=== PATIENT | male | born 1960 | race Caucasian/White ===

== ENCOUNTER 2018-04-24 14:49 | Inpatient (IN) | payer MEDICARE, OTHER ==
[~2018-04-24] VITALS: Ht 170.2 cm; Wt 90.7 kg
[~2018-04-24 14:49] MED LIST: ACET160O49 PO; APIX5TAB PO; ASPI-630 PO; ATOR40TA59 PO; BACL10TA PO; CARV6.252 PO; CITA20TA9 PO; GABA-587 PO; LOSA50TA7 PO; MAGN400T3 PO; QUET25TA5 PO; SPIR25TA PO; TRAM50TA PO
[2018-04-24 15:47] LABS: BASO # 0.1 x10^3/uL (0.0-0.2); BASO % 0 % (0-3); EOS # 0.2 x10^3/uL (0.0-0.7); EOS % 2 % (0-3); HEMATOCRIT 49.6 % (39.0-53.0); HEMOGLOBIN 16.8 g/dL (13.0-17.5); LYMPH # 1.2 x10^3/uL (1.0-4.8); LYMPH % 9 % (24-48); MEAN CORPUSCULAR HEMOGLOBIN 31 pg (25-35); MEAN CORPUSCULAR HGB CONC 34 g/dL (31-37); MEAN CORPUSCULAR VOLUME 91 fL (79-100); MONO # 0.7 x10^3/uL (0.0-1.1); MONO % 6 % (0-9); NEUT # 10.6 x10^3uL (1.8-7.7); NEUT % 83 % (31-73); PLATELET COUNT 240 x10^3/uL (140-400); RED BLOOD COUNT 5.47 x10^6/uL (4.30-5.70); RED CELL DISTRIBUTION WIDTH 14.1 % (11.5-14.5); WHITE BLOOD COUNT 12.7 x10^3/uL (4.0-11.0)
--- NOTE | 2018-04-24 15:48 | EKG ---
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
[2018-04-24 16:01] LABS: CALCIUM 9.9 mg/dL (8.5-10.1); CREATININE 0.8 mg/dL (0.7-1.3); GFR 99.3; POTASSIUM 4.1 mmol/L (3.5-5.1)
[2018-04-24 16:06] LABS: ALBUMIN 3.5 g/dL (3.4-5.0); ALBUMIN/GLOBULIN RATIO 0.8 (1.0-1.7); TOTAL BILIRUBIN 1.2 mg/dL (0.2-1.0); TOTAL PROTEIN 7.7 g/dL (6.4-8.2)
--- NOTE | 2018-04-24 16:43 | RAD ---
CT of the head without contrast, 04/24/2018: HISTORY: Fatigue, weakness, unable to use right arm Noncontrast scans were obtained and compared to a study from 01/12/2018. A large area of encephalomalacia in the left middle cerebral artery distribution is unchanged. There is compensatory enlargement of the left lateral ventricle. There is no evidence of acute intracranial hemorrhage or mass effect. There is calcific plaquing of the distal internal carotid and vertebral arteries. There is moderate ongoing mucosal thickening in the ethmoid and frontal sinuses. IMPRESSION: 1. 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 2. No acute intracranial abnormality is detected. PQRS Compliance Statement: One or more of the following individualized dose reduction techniques were utilized for this examination: 1. Automated exposure control 2. Adjustment of the mA and/or kV according to patient size 3. Use of iterative reconstruction technique Electronically signed by: Zak Ruiz MD (04/24/2018 4:39 PM) [facility]
--- NOTE | 2018-04-24 16:50 | RAD ---
Portable chest, 04/24/2018: HISTORY: Weakness Comparison is made to a study from 02/11/2018. The heart is mildly enlarged. There is calcific plaquing the aorta. The pulmonary vascularity is normal. No pulmonary infiltrate is seen. There is no evidence of pleural fluid. IMPRESSION: 1. Mild cardiomegaly and aortic atherosclerosis. 2. No acute abnormality is detected. Electronically signed by: Zak Ruiz MD (04/24/2018 4:46 PM) [facility]
--- NOTE | 2018-04-24 17:10 | PHYS DOC ---
Past Medical History Past Medical History: A-Fib, CVA, Depression, Diabetes-Type II, Heart Disease, Other Additional Past Medical Histor: hemiplegia;apraxia;aphasia;resp. failure;SI with attempt;MRSA Past Surgical History: Other Additional Past Surgical Histo: unknown Alcohol Use: None Drug Use: None Adult General Chief Complaint Chief Complaint: FATIGUE HPI HPI Patient is a 57 year old male who presents to the emergency Department today via EMS with fci reports of lethargy, weakness, and not wanting to get up for several days. Today after the patient had been taken outside to smoke patient he became very diaphoretic and pale. Patient denies any complaints of chest pain, shortness of breath, nausea, vomiting, diarrhea, or headache. Patient had a previous stroke and has limited speech due to aphasia as a result of stroke. Patient also has right-sided deficits from the stroke. Review of Systems Review of Systems Constitutional: Denies fever or chills [] Eyes: Denies change in visual acuity, redness, or eye pain [] HENT: Denies nasal congestion or sore throat [] Respiratory: Denies cough or shortness of breath [] Cardiovascular: Denies chest pain GI: Denies abdominal pain, nausea, vomiting, or diarrhea [] Musculoskeletal: Denies back pain or joint pain [] Neurologic: Denies headache Psychiatric: Denies any suicidal ideations or thoughts of hurting himself All other systems were reviewed and found to be within normal limits, except as documented in this note. Allergies Allergies Allergies Coded Allergies Type Severity Reaction Last Updated Verified Influenza Virus Vaccines Allergy Intermediate 02/12/18 Yes Penicillins Allergy Intermediate 02/12/18 Yes hydrocodone Allergy Intermediate 02/12/18 Yes Physical Exam Physical Exam Constitutional: Well developed, well nourished, no acute distress, non-toxic appearance. [] HENT: Normocephalic, atraumatic, bilateral external ears normal, oropharynx moist, no oral exudates, nose normal. [] Eyes: PERRLA, conjunctiva normal, no discharge. [] Cardiovascular:Heart rate regular rhythm, no murmur [] Lungs & Thorax: Bilateral breath sounds clear to auscultation [] Skin: Warm, dry, no erythema, no rash. [] Extremities: No tenderness, no cyanosis, no edema. [] Neurologic: Alert and oriented X 3, R sided weakness due to previous CVA, aphasia noted Psychologic: Affect normal, judgement normal, mood normal, denies suicidal ideations. [] Current Patient Data Lab Values Laboratory Tests Test 04/24/18 15:40 04/24/18 17:10 White Blood Count 12.7 x10^3/uL (4.0-11.0) H Red Blood Count 5.47 x10^6/uL (4.30-5.70) Hemoglobin 16.8 g/dL (13.0-17.5) Hematocrit 49.6 % (39.0-53.0) Mean Corpuscular Volume 91 fL (79-100) Mean Corpuscular Hemoglobin 31 pg (25-35) Mean Corpuscular Hemoglobin Concent 34 g/dL (31-37) Red Cell Distribution Width 14.1 % (11.5-14.5) Platelet Count 240 x10^3/uL (140-400) Neutrophils (%) (Auto) 83 % (31-73) H Lymphocytes (%) (Auto) 9 % (24-48) L Monocytes (%) (Auto) 6 % (0-9) Eosinophils (%) (Auto) 2 % (0-3) Basophils (%) (Auto) 0 % (0-3) Neutrophils # (Auto) 10.6 x10^3uL (1.8-7.7) H Lymphocytes # (Auto) 1.2 x10^3/uL (1.0-4.8) Monocytes # (Auto) 0.7 x10^3/uL (0.0-1.1) Eosinophils # (Auto) 0.2 x10^3/uL (0.0-0.7) Basophils # (Auto) 0.1 x10^3/uL (0.0-0.2) Sodium Level 138 mmol/L (136-145) Potassium Level 4.1 mmol/L (3.5-5.1) Chloride Level 102 mmol/L (98-107) Carbon Dioxide Level 25 mmol/L (21-32) Anion Gap 11 (6-14) Blood Urea Nitrogen 14 mg/dL (8-26) Creatinine 0.8 mg/dL (0.7-1.3) Estimated GFR (Cockcroft-Gault) 99.3 BUN/Creatinine Ratio 18 (6-20) Glucose Level 147 mg/dL (70-99) H Calcium Level 9.9 mg/dL (8.5-10.1) Total Bilirubin 1.2 mg/dL (0.2-1.0) H Aspartate Amino Transferase (AST) 21 U/L (15-37) Alanine Aminotransferase (ALT) 37 U/L (16-63) Alkaline Phosphatase 88 U/L (46-116) Troponin I Quantitative < 0.017 ng/mL (0.000-0.055) Total Protein 7.7 g/dL (6.4-8.2) Albumin 3.5 g/dL (3.4-5.0) Albumin/Globulin Ratio 0.8 (1.0-1.7) L Lactic Acid Level 1.5 mmol/L (0.4-2.0) Laboratory Tests 04/24/18 15:40 Laboratory Tests 04/24/18 15:40 EKG EKG [] Radiology/Procedures Radiology/Procedures PROCEDURE: CT HEAD WO CONTRAST CT of the head without contrast, 04/24/2018: HISTORY: Fatigue, weakness, unable to use right arm Noncontrast scans were obtained and compared to a study from 01/12/2018. A large area of encephalomalacia in the left middle cerebral artery distribution is unchanged. There is compensatory enlargement of the left lateral ventricle. There is no evidence of acute intracranial hemorrhage or mass effect. There is calcific plaquing of the distal internal carotid and vertebral arteries. There is moderate ongoing mucosal thickening in the ethmoid and frontal sinuses. IMPRESSION: 1. 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 2. No acute intracranial abnormality is detected. PQRS Compliance Statement: One or more of the following individualized dose reduction techniques were utilized for this examination: 1. Automated exposure control 2. Adjustment of the mA and/or kV according to patient size 3. Use of iterative reconstruction technique[] PROCEDURE: PORTABLE CHEST 1V Portable chest, 04/24/2018: HISTORY: Weakness Comparison is made to a study from 02/11/2018. The heart is mildly enlarged. There is calcific plaquing the aorta. The pulmonary vascularity is normal. No pulmonary infiltrate is seen. There is no evidence of pleural fluid. IMPRESSION: 1. Mild cardiomegaly and aortic atherosclerosis. 2. No acute abnormality is detected. Course & Med Decision Making Course & Med Decision Making Pertinent Labs and Imaging studies reviewed. (See chart for details) Dx: weakness CT head negative for acute findings. CXR no acute findings. WBC elevated 12.4, lactic acid WNL Spoke with Dr. Amaya advised urine still pending, he will admit this patient for further evaluation of weakness. Dragon Disclaimer Dragon Disclaimer This electronic medical record was generated, in whole or in part, using a voice recognition dictation system. Departure Departure Impression: Primary Impression: Weakness Disposition: ADMITTED INPATIENT Admitting Physician: Teresa Amaya Condition: STABLE Referrals: MICHEL DOMINGUEZ (PCP) EMMY EVANGELISTA [employer]ARING [employer] MECHANIC Apr 24, 2018 17:10
--- NOTE | 2018-04-24 22:11 | PDOC1 ---
History and Physical Date of Admission Date of Admission DATE: 04/24/18 TIME: 22:04 Source Source: Chart review, Patient History of Present Illness History of Present Illness Mr. Collins, is a 57 year old male admit from his care home reports of lethargy, weakness. He was outside and was pale and sweaty, he had gone to smoke He has been dispondent since he had made a new lady friend at [facility], and she was discharged home, and he cannot leave. His 2 daughters are in the ER with him, he voices frustration repeatedly, and they are worried he may try to harm himself, although he denies, he just wants to go home and is mad about it. Today after been taken outside to smoke patient he became very diaphoretic and pale. No chest pain, shortness of breath, nausea, vomiting, diarrhea, or headache. P in rehab for marked right sided weakness from CVA, with aphasia Past Medical History Cardiovascular: AFIB, CAD, CHF, HTN CENTRAL NERVOUS SYSTEM: CVA Psych: Depression Infectious disease: Other Endocrine: Diabetes Past Surgical History Past Surgical History: Other Family History Family History: No Significant Social History Smoke: <1 pack per day ALCOHOL: other Drugs: Other (mult prior , now sober since CVA) Current Problem List Problem List Problems Medical Problems: (1) Weakness Status: Acute Current Medications Current Medications Active Scripts Active Reported Acetaminophen 160 Mg/5 Ml Oral.susp 2.5 Ml PO PRN Q6HRS Tramadol Hcl 50 Mg Tablet 50 Mg PO PRN Q8HRS PRN Seroquel (Quetiapine Fumarate) 25 Mg Tablet 25 Mg PO HS Seroquel (Quetiapine Fumarate) 25 Mg Tablet 12.5 Mg PO BID Magnesium Oxide 400 Mg Tablet 1 Tab PO DAILY Losartan Potassium 50 Mg Tablet 50 Mg PO DAILY Gabapentin 400 Mg Capsule 400 Mg PO QID Eliquis (Apixaban) 5 Mg Tablet 5 Mg PO BID Celexa (Citalopram Hydrobromide) 20 Mg Tablet 30 Mg PO DAILY Carvedilol 6.25 Mg Tablet 1 Tab PO BID Baclofen 10 Mg Tablet 1 Tab PO TID Atorvastatin Calcium 40 Mg Tablet 1 Tab PO QHS Aspirin 81 Mg Tab.chew 1 Tab PO DAILY Aldactone (Spironolactone) 25 Mg Tablet 1 Tab PO DAILY Allergies Allergies: Coded Allergies: Influenza Virus Vaccines (Verified Allergy, Intermediate, 02/12/18) Penicillins (Verified Allergy, Intermediate, 02/12/18) hydrocodone (Verified Allergy, Intermediate, 02/12/18) ROS Review of System unable to complete, he wants to go home, is frustrated, aphasia mostly Physical Exam General: Alert, mild distress, Other (agiatated) HEENT: Atraumatic, PERRLA Lungs: Clear to auscultation Heart: S1S2 Extremities: No cyanosis, No edema Skin: No significant lesion Neuro: Normal tone, Sensation intact, Other (largely aphasic, a few words and a lot of cussing, ) Psych/Mental Status: Mood NL Vitals Vitals Vital Signs Date Time Temp Pulse Resp B/P (MAP) Pulse Ox O2 Delivery O2 Flow Rate FiO2 04/24/18 14:58 98.0 66 18 137/75 (95) 95 Room Air 98.0 Labs Labs Laboratory Tests Test 04/24/18 15:40 04/24/18 17:10 04/24/18 20:04 White Blood Count 12.7 x10^3/uL (4.0-11.0) Red Blood Count 5.47 x10^6/uL (4.30-5.70) Hemoglobin 16.8 g/dL (13.0-17.5) Hematocrit 49.6 % (39.0-53.0) Mean Corpuscular Volume 91 fL (79-100) Mean Corpuscular Hemoglobin 31 pg (25-35) Mean Corpuscular Hemoglobin Concent 34 g/dL (31-37) Red Cell Distribution Width 14.1 % (11.5-14.5) Platelet Count 240 x10^3/uL (140-400) Neutrophils (%) (Auto) 83 % (31-73) Lymphocytes (%) (Auto) 9 % (24-48) Monocytes (%) (Auto) 6 % (0-9) Eosinophils (%) (Auto) 2 % (0-3) Basophils (%) (Auto) 0 % (0-3) Neutrophils # (Auto) 10.6 x10^3uL (1.8-7.7) Lymphocytes # (Auto) 1.2 x10^3/uL (1.0-4.8) Monocytes # (Auto) 0.7 x10^3/uL (0.0-1.1) Eosinophils # (Auto) 0.2 x10^3/uL (0.0-0.7) Basophils # (Auto) 0.1 x10^3/uL (0.0-0.2) Sodium Level 138 mmol/L (136-145) Potassium Level 4.1 mmol/L (3.5-5.1) Chloride Level 102 mmol/L (98-107) Carbon Dioxide Level 25 mmol/L (21-32) Anion Gap 11 (6-14) Blood Urea Nitrogen 14 mg/dL (8-26) Creatinine 0.8 mg/dL (0.7-1.3) Estimated GFR (Cockcroft-Gault) 99.3 BUN/Creatinine Ratio 18 (6-20) Glucose Level 147 mg/dL (70-99) Calcium Level 9.9 mg/dL (8.5-10.1) Total Bilirubin 1.2 mg/dL (0.2-1.0) Aspartate Amino Transf (AST/SGOT) 21 U/L (15-37) Alanine Aminotransferase (ALT/SGPT) 37 U/L (16-63) Alkaline Phosphatase 88 U/L (46-116) Troponin I Quantitative < 0.017 ng/mL (0.000-0.055) Total Protein 7.7 g/dL (6.4-8.2) Albumin 3.5 g/dL (3.4-5.0) Albumin/Globulin Ratio 0.8 (1.0-1.7) Lactic Acid Level 1.5 mmol/L (0.4-2.0) Glucose (Fingerstick) 101 mg/dL (70-99) Laboratory Tests Test 04/24/18 15:40 04/24/18 17:10 04/24/18 20:04 White Blood Count 12.7 x10^3/uL (4.0-11.0) Red Blood Count 5.47 x10^6/uL (4.30-5.70) Hemoglobin 16.8 g/dL (13.0-17.5) Hematocrit 49.6 % (39.0-53.0) Mean Corpuscular Volume 91 fL (79-100) Mean Corpuscular Hemoglobin 31 pg (25-35) Mean Corpuscular Hemoglobin Concent 34 g/dL (31-37) Red Cell Distribution Width 14.1 % (11.5-14.5) Platelet Count 240 x10^3/uL (140-400) Neutrophils (%) (Auto) 83 % (31-73) Lymphocytes (%) (Auto) 9 % (24-48) Monocytes (%) (Auto) 6 % (0-9) Eosinophils (%) (Auto) 2 % (0-3) Basophils (%) (Auto) 0 % (0-3) Neutrophils # (Auto) 10.6 x10^3uL (1.8-7.7) Lymphocytes # (Auto) 1.2 x10^3/uL (1.0-4.8) Monocytes # (Auto) 0.7 x10^3/uL (0.0-1.1) Eosinophils # (Auto) 0.2 x10^3/uL (0.0-0.7) Basophils # (Auto) 0.1 x10^3/uL (0.0-0.2) Sodium Level 138 mmol/L (136-145) Potassium Level 4.1 mmol/L (3.5-5.1) Chloride Level 102 mmol/L (98-107) Carbon Dioxide Level 25 mmol/L (21-32) Anion Gap 11 (6-14) Blood Urea Nitrogen 14 mg/dL (8-26) Creatinine 0.8 mg/dL (0.7-1.3) Estimated GFR (Cockcroft-Gault) 99.3 BUN/Creatinine Ratio 18 (6-20) Glucose Level 147 mg/dL (70-99) Calcium Level 9.9 mg/dL (8.5-10.1) Total Bilirubin 1.2 mg/dL (0.2-1.0) Aspartate Amino Transf (AST/SGOT) 21 U/L (15-37) Alanine Aminotransferase (ALT/SGPT) 37 U/L (16-63) Alkaline Phosphatase 88 U/L (46-116) Troponin I Quantitative < 0.017 ng/mL (0.000-0.055) Total Protein 7.7 g/dL (6.4-8.2) Albumin 3.5 g/dL (3.4-5.0) Albumin/Globulin Ratio 0.8 (1.0-1.7) Lactic Acid Level 1.5 mmol/L (0.4-2.0) Glucose (Fingerstick) 101 mg/dL (70-99) VTE Prophylaxis Ordered VTE Prophylaxis Devices: No VTE Pharmacological Prophylaxi: Yes Assessment/Plan Assessment/Plan presyncope, and diaphoresis recent CVA with marked right hemiplegia aphasia, tobacco use d/o anxiety and prior depression adjustment disorder STEPH LEWIS MD Apr 24, 2018 22:11
[2018-04-24] MEDS ORDERED: ACETAMINOPHEN 160 MG/5 ML ORAL.SUSP. PO SCH (22:15)
[2018-04-24 23:00] VITALS: BP 143/85
[2018-04-25 03:00] VITALS: BP 119/87
[2018-04-25 07:00] VITALS: BP 130/87
[2018-04-25 08:41] LABS: BILIRUBIN,URINE NEGATIVE (NEG); CLARITY,URINE CLEAR; COLOR,URINE YELLOW; NITRITE,URINE POSITIVE (NEG); PROTEIN,URINE NEGATIVE (NEG-TRACE)
[2018-04-25] MEDS: GABAPENTIN 400 MG CAPSULE. PO SCH ×4 (09:00→22:01)
[2018-04-25] MEDS: BACLOFEN 10 MG TABLET. PO SCH ×3 (09:00→22:02)
[2018-04-25 09:23] LABS: BACTERIA,URINE MANY /HPF (0-FEW); WBC,URINE TNTC /HPF (0-4)
[2018-04-25] MEDS: traMADol 50 MG TABLET PO PRN ×2 (10:13→18:09)
[2018-04-25 11:00] VITALS: BP 143/93
--- NOTE | 2018-04-25 11:34 | PDOC ---
PROGRESS NOTES Chief Complaint Chief Complaint presyncope, and diaphoresis recent CVA with marked right hemiplegia aphasia, tobacco use d/o anxiety and prior depression adjustment disorder History of Present Illness History of Present Illness refused to work with PT cont current he is very grumpy should return to [facility], Vitals Vitals Vital Signs Date Time Temp Pulse Resp B/P (MAP) Pulse Ox O2 Delivery O2 Flow Rate FiO2 04/25/18 11:21 90 Room Air 04/25/18 07:00 97.9 75 16 130/87 (101) 97.9 Physical Exam General: Alert, mild distress, Other (agiatated) Heart: Regular rate Lungs: Clear Abdomen: Soft Extremities: No cyanosis, No edema Skin: No significant lesion Labs LABS Laboratory Tests Test 04/24/18 15:40 04/24/18 17:10 04/24/18 20:04 04/25/18 05:00 White Blood Count 12.7 x10^3/uL (4.0-11.0) Red Blood Count 5.47 x10^6/uL (4.30-5.70) Hemoglobin 16.8 g/dL (13.0-17.5) Hematocrit 49.6 % (39.0-53.0) Mean Corpuscular Volume 91 fL (79-100) Mean Corpuscular Hemoglobin 31 pg (25-35) Mean Corpuscular Hemoglobin Concent 34 g/dL (31-37) Red Cell Distribution Width 14.1 % (11.5-14.5) Platelet Count 240 x10^3/uL (140-400) Neutrophils (%) (Auto) 83 % (31-73) Lymphocytes (%) (Auto) 9 % (24-48) Monocytes (%) (Auto) 6 % (0-9) Eosinophils (%) (Auto) 2 % (0-3) Basophils (%) (Auto) 0 % (0-3) Neutrophils # (Auto) 10.6 x10^3uL (1.8-7.7) Lymphocytes # (Auto) 1.2 x10^3/uL (1.0-4.8) Monocytes # (Auto) 0.7 x10^3/uL (0.0-1.1) Eosinophils # (Auto) 0.2 x10^3/uL (0.0-0.7) Basophils # (Auto) 0.1 x10^3/uL (0.0-0.2) Sodium Level 138 mmol/L (136-145) Potassium Level 4.1 mmol/L (3.5-5.1) Chloride Level 102 mmol/L (98-107) Carbon Dioxide Level 25 mmol/L (21-32) Anion Gap 11 (6-14) Blood Urea Nitrogen 14 mg/dL (8-26) Creatinine 0.8 mg/dL (0.7-1.3) Estimated GFR (Cockcroft-Gault) 99.3 BUN/Creatinine Ratio 18 (6-20) Glucose Level 147 mg/dL (70-99) Calcium Level 9.9 mg/dL (8.5-10.1) Total Bilirubin 1.2 mg/dL (0.2-1.0) Aspartate Amino Transf (AST/SGOT) 21 U/L (15-37) Alanine Aminotransferase (ALT/SGPT) 37 U/L (16-63) Alkaline Phosphatase 88 U/L (46-116) Troponin I Quantitative < 0.017 ng/mL (0.000-0.055) Total Protein 7.7 g/dL (6.4-8.2) Albumin 3.5 g/dL (3.4-5.0) Albumin/Globulin Ratio 0.8 (1.0-1.7) Lactic Acid Level 1.5 mmol/L (0.4-2.0) Glucose (Fingerstick) 101 mg/dL (70-99) Urine Collection Type Unknown Urine Color Yellow Urine Clarity Clear Urine pH 6.0 Urine Specific [place] 1.025 Urine Protein Negative mg/dL (NEG-TRACE) Urine Glucose (UA) Negative mg/dL (NEG) Urine Ketones (Stick) Trace mg/dL (NEG) Urine Blood Trace (NEG) Urine Nitrite Positive (NEG) Urine Bilirubin Negative (NEG) Urine Urobilinogen Dipstick 1.0 mg/dL (0.2 mg/dL) Urine Leukocyte Esterase Large (NEG) Urine RBC 1-2 /HPF (0-2) Urine WBC Tntc /HPF (0-4) Urine Bacteria Many /HPF (0-FEW) Assessment and Plan Assessmemt and Plan Problems Medical Problems: (1) Weakness Status: Acute Comment Review of Relevant I have reviewed the following items dg (where applicable) has been applied. Labs Laboratory Tests Test 04/24/18 15:40 04/24/18 17:10 04/24/18 20:04 04/25/18 05:00 White Blood Count 12.7 x10^3/uL (4.0-11.0) Red Blood Count 5.47 x10^6/uL (4.30-5.70) Hemoglobin 16.8 g/dL (13.0-17.5) Hematocrit 49.6 % (39.0-53.0) Mean Corpuscular Volume 91 fL (79-100) Mean Corpuscular Hemoglobin 31 pg (25-35) Mean Corpuscular Hemoglobin Concent 34 g/dL (31-37) Red Cell Distribution Width 14.1 % (11.5-14.5) Platelet Count 240 x10^3/uL (140-400) Neutrophils (%) (Auto) 83 % (31-73) Lymphocytes (%) (Auto) 9 % (24-48) Monocytes (%) (Auto) 6 % (0-9) Eosinophils (%) (Auto) 2 % (0-3) Basophils (%) (Auto) 0 % (0-3) Neutrophils # (Auto) 10.6 x10^3uL (1.8-7.7) Lymphocytes # (Auto) 1.2 x10^3/uL (1.0-4.8) Monocytes # (Auto) 0.7 x10^3/uL (0.0-1.1) Eosinophils # (Auto) 0.2 x10^3/uL (0.0-0.7) Basophils # (Auto) 0.1 x10^3/uL (0.0-0.2) Sodium Level 138 mmol/L (136-145) Potassium Level 4.1 mmol/L (3.5-5.1) Chloride Level 102 mmol/L (98-107) Carbon Dioxide Level 25 mmol/L (21-32) Anion Gap 11 (6-14) Blood Urea Nitrogen 14 mg/dL (8-26) Creatinine 0.8 mg/dL (0.7-1.3) Estimated GFR (Cockcroft-Gault) 99.3 BUN/Creatinine Ratio 18 (6-20) Glucose Level 147 mg/dL (70-99) Calcium Level 9.9 mg/dL (8.5-10.1) Total Bilirubin 1.2 mg/dL (0.2-1.0) Aspartate Amino Transf (AST/SGOT) 21 U/L (15-37) Alanine Aminotransferase (ALT/SGPT) 37 U/L (16-63) Alkaline Phosphatase 88 U/L (46-116) Troponin I Quantitative < 0.017 ng/mL (0.000-0.055) Total Protein 7.7 g/dL (6.4-8.2) Albumin 3.5 g/dL (3.4-5.0) Albumin/Globulin Ratio 0.8 (1.0-1.7) Lactic Acid Level 1.5 mmol/L (0.4-2.0) Glucose (Fingerstick) 101 mg/dL (70-99) Urine Collection Type Unknown Urine Color Yellow Urine Clarity Clear Urine pH 6.0 Urine Specific [place] 1.025 Urine Protein Negative mg/dL (NEG-TRACE) Urine Glucose (UA) Negative mg/dL (NEG) Urine Ketones (Stick) Trace mg/dL (NEG) Urine Blood Trace (NEG) Urine Nitrite Positive (NEG) Urine Bilirubin Negative (NEG) Urine Urobilinogen Dipstick 1.0 mg/dL (0.2 mg/dL) Urine Leukocyte Esterase Large (NEG) Urine RBC 1-2 /HPF (0-2) Urine WBC Tntc /HPF (0-4) Urine Bacteria Many /HPF (0-FEW) Laboratory Tests Test 04/24/18 15:40 04/24/18 17:10 04/24/18 20:04 04/25/18 05:00 White Blood Count 12.7 x10^3/uL (4.0-11.0) Red Blood Count 5.47 x10^6/uL (4.30-5.70) Hemoglobin 16.8 g/dL (13.0-17.5) Hematocrit 49.6 % (39.0-53.0) Mean Corpuscular Volume 91 fL (79-100) Mean Corpuscular Hemoglobin 31 pg (25-35) Mean Corpuscular Hemoglobin Concent 34 g/dL (31-37) Red Cell Distribution Width 14.1 % (11.5-14.5) Platelet Count 240 x10^3/uL (140-400) Neutrophils (%) (Auto) 83 % (31-73) Lymphocytes (%) (Auto) 9 % (24-48) Monocytes (%) (Auto) 6 % (0-9) Eosinophils (%) (Auto) 2 % (0-3) Basophils (%) (Auto) 0 % (0-3) Neutrophils # (Auto) 10.6 x10^3uL (1.8-7.7) Lymphocytes # (Auto) 1.2 x10^3/uL (1.0-4.8) Monocytes # (Auto) 0.7 x10^3/uL (0.0-1.1) Eosinophils # (Auto) 0.2 x10^3/uL (0.0-0.7) Basophils # (Auto) 0.1 x10^3/uL (0.0-0.2) Sodium Level 138 mmol/L (136-145) Potassium Level 4.1 mmol/L (3.5-5.1) Chloride Level 102 mmol/L (98-107) Carbon Dioxide Level 25 mmol/L (21-32) Anion Gap 11 (6-14) Blood Urea Nitrogen 14 mg/dL (8-26) Creatinine 0.8 mg/dL (0.7-1.3) Estimated GFR (Cockcroft-Gault) 99.3 BUN/Creatinine Ratio 18 (6-20) Glucose Level 147 mg/dL (70-99) Calcium Level 9.9 mg/dL (8.5-10.1) Total Bilirubin 1.2 mg/dL (0.2-1.0) Aspartate Amino Transf (AST/SGOT) 21 U/L (15-37) Alanine Aminotransferase (ALT/SGPT) 37 U/L (16-63) Alkaline Phosphatase 88 U/L (46-116) Troponin I Quantitative < 0.017 ng/mL (0.000-0.055) Total Protein 7.7 g/dL (6.4-8.2) Albumin 3.5 g/dL (3.4-5.0) Albumin/Globulin Ratio 0.8 (1.0-1.7) Lactic Acid Level 1.5 mmol/L (0.4-2.0) Glucose (Fingerstick) 101 mg/dL (70-99) Urine Collection Type Unknown Urine Color Yellow Urine Clarity Clear Urine pH 6.0 Urine Specific [place] 1.025 Urine Protein Negative mg/dL (NEG-TRACE) Urine Glucose (UA) Negative mg/dL (NEG) Urine Ketones (Stick) Trace mg/dL (NEG) Urine Blood Trace (NEG) Urine Nitrite Positive (NEG) Urine Bilirubin Negative (NEG) Urine Urobilinogen Dipstick 1.0 mg/dL (0.2 mg/dL) Urine Leukocyte Esterase Large (NEG) Urine RBC 1-2 /HPF (0-2) Urine WBC Tntc /HPF (0-4) Urine Bacteria Many /HPF (0-FEW) Medications Current Medications Apixaban (Eliquis) 5 mg BID PO ; Start 04/25/18 at 09:00 Aspirin (Children'S Aspirin) 81 mg DAILY PO ; Start 04/25/18 at 09:00 Atorvastatin Calcium (Lipitor) 40 mg QHS PO ; Start 04/25/18 at 21:00 Baclofen (Lioresal) 10 mg TID PO ; Start 04/25/18 at 09:00 Carvedilol (Coreg) 6.25 mg BIDWMEALS PO ; Start 04/25/18 at 08:00 Citalopram Hydrobromide (CeleXA) 30 mg DAILY PO ; Start 04/25/18 at 09:00 Losartan Potassium (Cozaar) 50 mg DAILY PO ; Start 04/25/18 at 09:00 Tramadol HCl (Ultram) 50 mg PRN Q8HRS PRN PO PAIN Last administered on at 10:13; Start 04/24/18 at 22:15 Acetaminophen (Children'S Tylenol) 80 mg PRN Q6HRS PO ; Start 04/24/18 at 22:15 Gabapentin (Neurontin) 400 mg QID PO ; Start 04/25/18 at 09:00 Magnesium Oxide (Magnesium Oxide) 400 mg DAILY PO ; Start 04/25/18 at 09:00 Quetiapine Fumarate (SEROquel) 25 mg HS PO ; Start 04/25/18 at 21:00 Spironolactone (Aldactone) 25 mg DAILY PO ; Start 04/25/18 at 09:00 Active Scripts Active Reported Acetaminophen 160 Mg/5 Ml Oral.susp 2.5 Ml PO PRN Q6HRS Tramadol Hcl 50 Mg Tablet 50 Mg PO PRN Q8HRS PRN Seroquel (Quetiapine Fumarate) 25 Mg Tablet 25 Mg PO HS Seroquel (Quetiapine Fumarate) 25 Mg Tablet 12.5 Mg PO BID Magnesium Oxide 400 Mg Tablet 1 Tab PO DAILY Losartan Potassium 50 Mg Tablet 50 Mg PO DAILY Gabapentin 400 Mg Capsule 400 Mg PO QID Eliquis (Apixaban) 5 Mg Tablet 5 Mg PO BID Celexa (Citalopram Hydrobromide) 20 Mg Tablet 30 Mg PO DAILY Carvedilol 6.25 Mg Tablet 1 Tab PO BID Baclofen 10 Mg Tablet 1 Tab PO TID Atorvastatin Calcium 40 Mg Tablet 1 Tab PO QHS Aspirin 81 Mg Tab.chew 1 Tab PO DAILY Aldactone (Spironolactone) 25 Mg Tablet 1 Tab PO DAILY Vitals/I & O Vital Sign - Last 24 Hours 04/24/18 04/24/18 04/24/18 04/25/18 14:58 22:00 23:00 03:00 Temp 98.0 98.1 98.3 98.0 98.1 98.3 Pulse 66 75 83 Resp 18 16 16 B/P (MAP) 137/75 (95) 143/85 (104) 119/87 (98) Pulse Ox 95 92 92 O2 Delivery Room Air Room Air Room Air Room Air 04/25/18 04/25/18 04/25/18 04/25/18 07:00 08:00 10:13 11:21 Temp 97.9 97.9 Pulse 75 Resp 16 B/P (MAP) 130/87 (101) Pulse Ox 90 90 90 O2 Delivery Room Air Room Air Room Air Room Air STEPH LEWIS MD Apr 25, 2018 11:34
[2018-04-25] MEDS: APIXABAN 5 MG TABLET. PO SCH ×2 (12:18→22:02)
[2018-04-25] MEDS: CARVEDILOL 6.25 MG TABLET. PO SCH ×2 (12:18→18:10)
[2018-04-25] MEDS: ASPIRIN CHEWABLE 81 MG TABLET. PO SCH (12:18)
[2018-04-25] MEDS: CITALOPRAM 20 MG TABLET. PO SCH (12:19)
[2018-04-25] MEDS: MAGNESIUM OXIDE 400 MG TABLET PO SCH (12:19)
[2018-04-25] MEDS: SPIRONOLACTONE 25 MG TABLET PO SCH (12:19)
[2018-04-25] MEDS: LOSARTAN POTASSIUM 50 MG TABLET. PO SCH (12:22)
[2018-04-25 15:00] VITALS: BP 125/78
[2018-04-25 19:00] VITALS: BP 115/79
[2018-04-25] MEDS ORDERED: ATORVASTATIN CALCIUM 40 MG TABLET. PO SCH (21:00)
[2018-04-25] MEDS ORDERED: QUEtiapine 25 MG TABLET. PO SCH (21:00)
[2018-04-25 22:38] VITALS: BP 121/76
[2018-04-26 03:08] VITALS: BP 127/75
[2018-04-26 07:00] VITALS: BP_SYST 117
[2018-04-26] MEDS: ASPIRIN CHEWABLE 81 MG TABLET. PO SCH (08:46)
[2018-04-26] MEDS: CITALOPRAM 20 MG TABLET. PO SCH (08:46)
[2018-04-26] MEDS: BACLOFEN 10 MG TABLET. PO SCH (08:46)
[2018-04-26] MEDS: GABAPENTIN 400 MG CAPSULE. PO SCH (08:46)
[2018-04-26] MEDS: MAGNESIUM OXIDE 400 MG TABLET PO SCH (08:46)
[2018-04-26] MEDS: SPIRONOLACTONE 25 MG TABLET PO SCH (08:47)
[2018-04-26] MEDS: APIXABAN 5 MG TABLET. PO SCH (08:47)
[2018-04-26] MEDS: CARVEDILOL 6.25 MG TABLET. PO SCH (08:47)
[2018-04-26] MEDS: LOSARTAN POTASSIUM 50 MG TABLET. PO SCH (08:47)
[2018-04-26 11:00] VITALS: BP 121/83
[2018-04-26 15:00] VITALS: BP 124/76
--- NOTE | 2018-04-26 15:35 | DISCH ---
DISCHARGE DISCHARGE INFORMATION: DISCHARGE DATE: Apr 26, 2018 FINAL DIAGNOSIS Problems Medical Problems: (1) Weakness Status: Acute CONDITION ON DISCHARGE: Stable CODE STATUS: Code Status: Full [facility]: SNF STAY <30 DAYS: Yes POST DISCHARGE ORDERS: ACTIVITY ORDERS: Resume previous activity, Activity as tolerated WEIGHT BEARING STATUS: No restrictions DIET AFTER DISCHARGE: Cardiac FOLLOW-UP: PHYSICIAN FOLLOW-UP: primary care 1 week TREATMENT/EQUIPMENT ORDERS: Physical Therapy For: Evalulation/Treatment Occupational Therapy For: Evaluation/Treatment Speech Language Pathology For: Swallow Cognition DISCHARGE MEDICATIONS: Home Meds Reported Medications Acetaminophen (ACETAMINOPHEN) 160 Mg/5 Ml Oral.susp, 2.5 ML PO PRN Q6HRS, #45 ML 02/11/18 Tramadol Hcl (TRAMADOL HCL) 50 Mg Tablet, 50 MG PO PRN Q8HRS PRN for PAIN, TAB 02/11/18 Quetiapine Fumarate (SEROQUEL) 25 Mg Tablet, 25 MG PO HS, TAB 02/11/18 Quetiapine Fumarate (SEROQUEL) 25 Mg Tablet, 12.5 MG PO BID, TAB 02/11/18 Magnesium Oxide (MAGNESIUM OXIDE) 400 Mg Tablet, 1 TAB PO DAILY, #30 TAB 5 Refills 02/11/18 Losartan Potassium (LOSARTAN POTASSIUM) 50 Mg Tablet, 50 MG PO DAILY, TAB 02/11/18 Gabapentin (GABAPENTIN) 400 Mg Capsule, 400 MG PO QID, CAP 02/11/18 Apixaban (ELIQUIS) 5 Mg Tablet, 5 MG PO BID, TAB 02/11/18 Citalopram Hydrobromide (CELEXA) 20 Mg Tablet, 30 MG PO DAILY, TAB 02/11/18 Carvedilol (CARVEDILOL) 6.25 Mg Tablet, 1 TAB PO BID, #180 TAB 1 Refill 02/11/18 Baclofen (BACLOFEN) 10 Mg Tablet, 1 TAB PO TID, #90 TAB 2 Refills 02/11/18 Atorvastatin Calcium (ATORVASTATIN CALCIUM) 40 Mg Tablet, 1 TAB PO QHS, #90 TAB 3 Refills 02/11/18 Aspirin (ASPIRIN) 81 Mg Tab.chew, 1 TAB PO DAILY, #30 TAB 3 Refills 02/11/18 Spironolactone (ALDACTONE) 25 Mg Tablet, 1 TAB PO DAILY, #90 TAB 1 Refill 02/11/18 STEPH LEWIS MD Apr 26, 2018 15:35
== END 2018-04-26 18:41 | DRG 948 ==
LOC: ER 14:49 → 5 SOUTH 17:42
PROVIDERS: ADMIT Internal Medicine; ATTEND Internal Medicine
DX: R53.1 Weakness (principal); F43.22 Adjustment disorder with anxiety; R61 Generalized hyperhidrosis; E11.9 Type 2 diabetes mellitus without complications; F17.210 Nicotine dependence, cigarettes, uncomplicated; I11.0 Hypertensive heart disease with heart failure; I25.10 Atherosclerotic heart disease of native coronary artery without angina pectoris; I48.91 Unspecified atrial fibrillation; I50.9 Heart failure, unspecified; I69.320 Aphasia following cerebral infarction; F32.9 Major depressive disorder, single episode, unspecified; Z86.14 Personal history of Methicillin resistant Staphylococcus aureus infection; Z88.5 Allergy status to narcotic agent; Z88.0 Allergy status to penicillin; Z88.7 Allergy status to serum and vaccine
CPT/HCPCS: 36415; 70450; 71045; 80053; 81001; 82962; 83605; 84484; 85025; 87086; 87641; 93005; 99285-25

== ENCOUNTER 2018-06-16 11:34 | Emergency (ER) | payer MEDICARE, OTHER ==
[~2018-06-16] VITALS: Ht 177.8 cm; Wt 99.8 kg
--- NOTE | 2018-06-16 11:56 | EKG ---
[facility] [address] [place] [address] Test Date: 2018-06-16 Test Time: 11:50:46 Pat Name: MEL OSORIO Department: Room: Gender: Male Dietetic Intern: CHAU : 1960 Requested By: EDELMIRA CLARK Order Number: [id number] Reading MD: Arcadio Garcia MD Measurements Intervals [place] Rate: 81 P: [place]: QRS: 54 QRSD: 96 T: 40 QT: 402 QTc: 467 Interpretive Statements PROBABLE MOBITZ TYPE 1 VERSUS ATRIAL FIBRILLATION CANNOT RULE OUT PRIOR INFERO-SEPTAL INFARCT Electronically Signed On 06-18-2018 10:14:38 DIRECTOR OF BUSINESS CONTINUITY by Arcadio Garcia MD
[2018-06-16 11:58] LABS: BASO % 1 % (0-3); EOS # 0.3 x10^3/uL (0.0-0.7); EOS % 5 % (0-3); HEMATOCRIT 49.4 % (39.0-53.0); LYMPH # 1.7 x10^3/uL (1.0-4.8); LYMPH % 25 % (24-48); MEAN CORPUSCULAR HEMOGLOBIN 31 pg (25-35); MEAN CORPUSCULAR HGB CONC 35 g/dL (31-37); MEAN CORPUSCULAR VOLUME 90 fL (79-100); MONO # 0.6 x10^3/uL (0.0-1.1); MONO % 9 % (0-9); NEUT # 4.2 x10^3uL (1.8-7.7); NEUT % 61 % (31-73); PLATELET COUNT 260 x10^3/uL (140-400); RED BLOOD COUNT 5.51 x10^6/uL (4.30-5.70); RED CELL DISTRIBUTION WIDTH 14.3 % (11.5-14.5)
[2018-06-16 12:06] LABS: CALCIUM 9.6 mg/dL (8.5-10.1); GFR 76.7; POTASSIUM 3.6 mmol/L (3.5-5.1)
[2018-06-16 12:07] LABS: PROTHROMBIN TIME PATIENT 15.7 SEC (11.7-14.0)
[2018-06-16 12:12] LABS: ALBUMIN 3.8 g/dL (3.4-5.0); ALBUMIN/GLOBULIN RATIO 0.8 (1.0-1.7); MAGNESIUM 1.7 mg/dL (1.8-2.4); TOTAL BILIRUBIN 1.1 mg/dL (0.2-1.0); TOTAL PROTEIN 8.3 g/dL (6.4-8.2)
[2018-06-16 12:38] VITALS: BP 140/84
[2018-06-16] MEDS ORDERED: MAGNESIUM OXIDE 400 MG TABLET PO SCH (12:45)
[2018-06-16] MEDS ORDERED: IV NORMAL SALINE 1000ML BAG 1,000 ML IV ONE (12:45)
--- NOTE | 2018-06-16 13:10 | PHYS DOC ---
Past Medical History Past Medical History: A-Fib, Depression, Diabetes-Type II, High Cholesterol, Heart Disease, Hypertension, Stroke Additional Past Medical Histor: rt side deficit, aphasia Past Surgical History: Other Additional Past Surgical Histo: unknown Alcohol Use: None Drug Use: None Adult General Chief Complaint Chief Complaint: Not eating HPI HPI Patient is a 57 year old male with history of right-sided weakness related to CVA and wheelchair bound resident of longterm brought in by EMS because of refusing eating for the last 5 days. Patient had partial aphasia and able to say yes or no only. According to longterm's report patient was forbidden to see his girlfriend who is a longterm resident also request of patient's brother and therefore he decided to stop eating and drinking for the last 5 days to kill himself. Patient denies homicidal ideation and hallucination. Patient's brother wants to make sure he does not have kidney problem because of having dark urine. Review of Systems Review of Systems Constitutional: Denies fever or chills [] Eyes: Denies change in visual acuity, redness, or eye pain [] HENT: Denies nasal congestion or sore throat [] Respiratory: Denies cough or shortness of breath [] Cardiovascular: No additional information not addressed in HPI [] GI: Denies abdominal pain, nausea, vomiting, bloody stools or diarrhea [] : Denies dysuria or hematuria [] Musculoskeletal: Denies back pain or joint pain [] Integument: Denies rash or skin lesions [] Neurologic: Denies headache, focal weakness or sensory changes [] Endocrine: Denies polyuria or polydipsia [] All other systems were reviewed and found to be within normal limits, except as documented in this note. Current Medications Current Medications Current Medications Medications (Trade) Dose Ordered Sig/Judi Start Time Stop Time Status Last Admin Dose Admin Magnesium Oxide (Magnesium Oxide) 400 mg DAILY 06/16/18 12:45 06/16/18 13:33 DC 06/16/18 12:48 400 MG Sodium Chloride 1,000 ml @ 1,000 mls/hr 1X ONCE 06/16/18 12:45 06/16/18 13:33 DC 06/16/18 12:48 1,000 MLS/HR Allergies Allergies Allergies Coded Allergies Type Severity Reaction Last Updated Verified Influenza Virus Vaccines Allergy Intermediate 02/12/18 Yes Penicillins Allergy Intermediate 02/12/18 Yes hydrocodone Allergy Intermediate 02/12/18 Yes Physical Exam Physical Exam Constitutional: Well developed, well nourished, no acute distress, non-toxic appearance. [] HENT: Normocephalic, atraumatic, bilateral external ears normal, oropharynx moist, no oral exudates, nose normal. [] Eyes: PERRLA, EOMI, conjunctiva normal, no discharge. [] Neck: Normal range of motion, no tenderness, supple, no stridor. [] Cardiovascular: Irregularly irregular, no murmur [] Lungs & Thorax: Bilateral breath sounds clear to auscultation [] Abdomen: Bowel sounds normal, soft, no tenderness, no masses, no pulsatile masses. [] Skin: Warm, dry, no erythema, no rash. [] Back: No tenderness, no CVA tenderness. [] Extremities: No tenderness, no cyanosis, no clubbing, ROM intact, no edema. [] Neurologic: Alert and oriented X 3, normal motor function, normal sensory function, no focal deficits noted. [] Psychologic: Affect normal, judgement normal, mood normal. [] Current Patient Data Vital Signs Vital Signs Date Time Temp Pulse Resp B/P (MAP) Pulse Ox O2 Delivery O2 Flow Rate FiO2 06/16/18 12:38 70 18 140/84 (102) 96 Room Air 06/16/18 11:38 98.4 98.4 Lab Values Laboratory Tests Test 06/16/18 11:45 White Blood Count 7.0 x10^3/uL (4.0-11.0) Red Blood Count 5.51 x10^6/uL (4.30-5.70) Hemoglobin 17.0 g/dL (13.0-17.5) Hematocrit 49.4 % (39.0-53.0) Mean Corpuscular Volume 90 fL (79-100) Mean Corpuscular Hemoglobin 31 pg (25-35) Mean Corpuscular Hemoglobin Concent 35 g/dL (31-37) Red Cell Distribution Width 14.3 % (11.5-14.5) Platelet Count 260 x10^3/uL (140-400) Neutrophils (%) (Auto) 61 % (31-73) Lymphocytes (%) (Auto) 25 % (24-48) Monocytes (%) (Auto) 9 % (0-9) Eosinophils (%) (Auto) 5 % (0-3) H Basophils (%) (Auto) 1 % (0-3) Neutrophils # (Auto) 4.2 x10^3uL (1.8-7.7) Lymphocytes # (Auto) 1.7 x10^3/uL (1.0-4.8) Monocytes # (Auto) 0.6 x10^3/uL (0.0-1.1) Eosinophils # (Auto) 0.3 x10^3/uL (0.0-0.7) Basophils # (Auto) 0.0 x10^3/uL (0.0-0.2) Prothrombin Time 15.7 SEC (11.7-14.0) H Prothrombin Time INR 1.3 (0.8-1.1) H Sodium Level 144 mmol/L (136-145) Potassium Level 3.6 mmol/L (3.5-5.1) Chloride Level 103 mmol/L (98-107) Carbon Dioxide Level 27 mmol/L (21-32) Anion Gap 14 (6-14) Blood Urea Nitrogen 12 mg/dL (8-26) Creatinine 1.0 mg/dL (0.7-1.3) Estimated GFR (Cockcroft-Gault) 76.7 BUN/Creatinine Ratio 12 (6-20) Glucose Level 143 mg/dL (70-99) H Calcium Level 9.6 mg/dL (8.5-10.1) Magnesium Level 1.7 mg/dL (1.8-2.4) L Total Bilirubin 1.1 mg/dL (0.2-1.0) H Aspartate Amino Transferase (AST) 18 U/L (15-37) Alanine Aminotransferase (ALT) 33 U/L (16-63) Alkaline Phosphatase 112 U/L (46-116) Creatine Kinase 64 U/L (39-308) Troponin I Quantitative < 0.017 ng/mL (0.000-0.055) Total Protein 8.3 g/dL (6.4-8.2) H Albumin 3.8 g/dL (3.4-5.0) Albumin/Globulin Ratio 0.8 (1.0-1.7) L Laboratory Tests 06/16/18 11:45 Laboratory Tests 06/16/18 11:45 EKG EKG Urgent interpreted by me. EKG at 1150 showed atrial fibrillation at rate of 81, Q waves in inferior leads, poor R-wave progress in anteroseptal leads, no acute ST-T wave abnormalities. Radiology/Procedures Radiology/Procedures [] Course & Med Decision Making Course & Med Decision Making Pertinent Labs and Imaging studies reviewed. (See chart for details) Evaluation of patient in ER showed 57-year-old female patient with history of right-sided weakness and partial aphasia brought in because of refusing to eat for the last 5 days. Patient was alert and oriented and communicative with yes and no answers. Patient had unremarkable labs except for magnesium of 1.7 and refused to get IV fluid and oral magnesium and giving urine sample. Patient currently lives at mental longterm and discharged to longterm at stable condition. Dragon Disclaimer Dragon Disclaimer This electronic medical record was generated, in whole or in part, using a voice recognition dictation system. Departure Departure Impression: Primary Impression: Refuses to eat Additional Impressions: History of CVA (cerebrovascular accident) Hypomagnesemia Disposition: 03 TRANSFER SNF (discharged to longterm/mental facility at 1309) Condition: STABLE Referrals: MICHEL DOMINGUEZ (PCP) Patient Instructions: Hypomagnesemia Additional Instructions: Drink plenty of liquids Follow-up with your primary care physician in 1-2 days Return to ER if not getting better Problem Qualifiers EDELMIRA CLARK MD Jun 16, 2018 13:10
[2018-06-18] MEDS ORDERED: TRAM50TA PO (12:35)
== END 2018-06-16 13:33 ==
LOC: ER 11:34
DX: Z72.4 Inappropriate diet and eating habits (principal); E83.42 Hypomagnesemia; R53.1 Weakness; Z86.73 Personal history of transient ischemic attack (TIA), and cerebral infarction without residual deficits; I48.91 Unspecified atrial fibrillation; I11.9 Hypertensive heart disease without heart failure; Z88.0 Allergy status to penicillin; E11.9 Type 2 diabetes mellitus without complications; Z88.5 Allergy status to narcotic agent; Z88.7 Allergy status to serum and vaccine
CPT/HCPCS: 99285; J7030; 36415; 80053; 82550; 83735; 84484; 85025; 85610; 93005

== ENCOUNTER 2018-09-09 12:11 | Emergency (ER) | payer MEDICARE, OTHER ==
[~2018-09-09] VITALS: Ht 177.8 cm; Wt 99.8 kg
[~2018-09-09 12:11] MED LIST changes: +CARV6.2511 PO; -CARV6.252 PO; -GABA-587 PO; +GABA-689 PO; +LOSA-73 PO; -LOSA50TA7 PO
[2018-09-09 13:28] LABS: BASO % 0 % (0-3); EOS # 0.3 x10^3/uL (0.0-0.7); EOS % 3 % (0-3); HEMATOCRIT 43.1 % (39.0-53.0); HEMOGLOBIN 14.1 g/dL (13.0-17.5); LYMPH % 13 % (24-48); MEAN CORPUSCULAR HEMOGLOBIN 30 pg (25-35); MEAN CORPUSCULAR HGB CONC 33 g/dL (31-37); MEAN CORPUSCULAR VOLUME 91 fL (79-100); MONO # 0.4 x10^3/uL (0.0-1.1); MONO % 6 % (0-9); NEUT # 6.3 x10^3uL (1.8-7.7); NEUT % 78 % (31-73); PLATELET COUNT 310 x10^3/uL (140-400); RED BLOOD COUNT 4.74 x10^6/uL (4.30-5.70); RED CELL DISTRIBUTION WIDTH 14.6 % (11.5-14.5)
[2018-09-09 13:40] LABS: PROTHROMBIN TIME PATIENT 17.6 SEC (11.7-14.0)
[2018-09-09 13:41] LABS: CREATININE 1.1 mg/dL (0.7-1.3); GFR 68.5; POTASSIUM 4.8 mmol/L (3.5-5.1)
--- NOTE | 2018-09-09 13:46 | RAD ---
EXAM: CHEST 1 VIEW History: Altered consciousness COMPARISON: 06/16/2018 TECHNIQUE: Single portable radiograph of the chest FINDINGS: The cardiac silhouette is unremarkable. Probable mild left lung base airspace opacity likely atelectasis or infiltrate. IMPRESSION: Probable mild left lung base airspace opacity likely atelectasis or infiltrate. Electronically signed by: William Wall MD (09/09/2018 1:41 PM) [place] [id number]
[2018-09-09 13:48] LABS: ALBUMIN 3.1 g/dL (3.4-5.0); ALBUMIN/GLOBULIN RATIO 0.8 (1.0-1.7); MAGNESIUM 1.6 mg/dL (1.8-2.4); TOTAL BILIRUBIN 0.7 mg/dL (0.2-1.0); TOTAL PROTEIN 7.1 g/dL (6.4-8.2)
[2018-09-09 13:55] LABS: BILIRUBIN,URINE NEGATIVE (NEG); CLARITY,URINE CLEAR; COLOR,URINE YELLOW; NITRITE,URINE NEGATIVE (NEG); PH,URINE 5.5; PROTEIN,URINE 30 mg/dL (NEG-TRACE); UROBILINOGEN,URINE 0.2 mg/dL (0.2 mg/dL)
--- NOTE | 2018-09-09 13:55 | EKG ---
[facility] [address] [place] [address] Test Date: 2018-09-09 Test Time: 13:19:45 Pat Name: MEL OSORIO Department: Room: Gender: M Speech Correction Assistant: : 1960 Requested By: EDELMIRA CLARK Order Number: [id number] Reading MD: Arcadio Garcia MD Measurements Intervals [place] Rate: 62 P: [place]: QRS: 64 QRSD: 94 T: 109 QT: 416 QTc: 424 Interpretive Statements PROBABLE ATRIAL FIBRILLATION PRIOR SEPTAL INFARCT NON-SPECIFIC ST/T CHANGES Electronically Signed On 09-10-2018 10:48:02 CHARGE ACCOUNTS AUDIT CLERK by Arcadio Garcia MD
[2018-09-09 14:00] LABS: BACTERIA,URINE 0 /HPF (0-FEW); RBC,URINE 0 /HPF (0-2); SQUAMOUS EPITHELIAL CELL,UR FEW /LPF; WBC,URINE 0 /HPF (0-4)
[2018-09-09 14:01] LABS: HYALINE CASTS, URINE FEW /HPF
--- NOTE | 2018-09-09 14:32 | RAD ---
CT HEAD INDICATION: H/O STROKE LETHARGIC AND REFUSING TO EAT X 3-4 DAYS COMPARISON: 06/16/2018 Exposure: One or more of the following individualized dose reduction techniques were utilized for this examination: 1. Automated exposure control 2. Adjustment of the mA and/or kV according to patient size 3. Use of iterative reconstruction technique TECHNIQUE: 5 mm contiguous axial images were obtained from the skull base to the vertex in both bone and soft tissue algorithm. FINDINGS: Large old infarct left MCA territory similar to prior exam. Mild bilateral periventricular white matter hypodensities likely chronic small vessel ischemic disease. No evidence of acute intracranial hemorrhage. No extra-axial fluid collections. No mass effect or midline shift. Ventricular size is appropriate. Basal cisterns are patent. No fractures identified. Globes and orbits are within normal limits. Mild mucosal thickening identified in the bilateral maxillary sinuses. IMPRESSION: 1. Large old left MCA infarct similar to prior exam. If acute infarct is clinically suspected MRI can be considered. Electronically signed by: William Wall MD (09/09/2018 2:27 PM) [place] [id number]
--- NOTE | 2018-09-09 14:49 | PHYS DOC ---
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 Patient is able to answer yes or no to questions and [facility] reported that he refused to eat for the last 3 days and had weakness and was lethargic. Patient denies suicidal and homicidal ideation or any pain. Patient was seen in this emergency room in June of last year with the same complaint after he was forbidden to see his girlfriend who was a patient of [facility]. Review of Systems Review of Systems Constitutional: Denies fever or chills [] Eyes: Denies change in visual acuity, redness, or eye pain [] HENT: Denies nasal congestion or sore throat [] Respiratory: Denies cough or shortness of breath [] Cardiovascular: No additional information not addressed in HPI [] GI: Denies abdominal pain, nausea, vomiting, bloody stools or diarrhea [] : Denies dysuria or hematuria [] Musculoskeletal: Denies back pain or joint pain [] Integument: Denies rash or skin lesions [] Neurologic: Denies headache, focal weakness or sensory changes [] Endocrine: Denies polyuria or polydipsia [] All other systems were reviewed and found to be within normal limits, except as documented in this note. Allergies Allergies Allergies Coded Allergies Type Severity Reaction Last Updated Verified Influenza Virus Vaccines Allergy Intermediate 02/12/18 Yes Penicillins Allergy Intermediate 02/12/18 Yes hydrocodone Allergy Intermediate 02/12/18 Yes Physical Exam Physical Exam Constitutional: Well well nourished, no acute distress, non-toxic appearance, depressed. [] HENT: Normocephalic, atraumatic,oropharynx moist, no oral exudates, nose normal. [] Eyes: PERRLA, EOMI, conjunctiva normal, no discharge. [] Neck: Normal range of motion, no tenderness, supple, no stridor. [] Cardiovascular:Heart rate regular rhythm, no murmur [] Lungs & Thorax: Bilateral breath sounds clear to auscultation [] Abdomen: Bowel sounds normal, soft, no tenderness, no masses, no pulsatile masses. [] Skin: Warm, dry, no erythema, no rash. [] Back: No tenderness, no CVA tenderness. [] Extremities: No tenderness, no cyanosis, no clubbing, ROM intact, no edema. [] Neurologic: Alert and oriented , right upper and lower extremity weakness without depressed dysuria, limited evaluation for orientation because of aphasia Psychologic: Affect depressed, mood normal. [] Current Patient Data Vital Signs Vital Signs Date Time Temp Pulse Resp B/P (MAP) Pulse Ox O2 Delivery O2 Flow Rate FiO2 09/09/18 12:20 97.6 65 20 117/66 (83) 95 Room Air 97.6 Lab Values Laboratory Tests Test 09/09/18 13:14 09/09/18 13:15 White Blood Count 8.0 x10^3/uL (4.0-11.0) Red Blood Count 4.74 x10^6/uL (4.30-5.70) Hemoglobin 14.1 g/dL (13.0-17.5) Hematocrit 43.1 % (39.0-53.0) Mean Corpuscular Volume 91 fL (79-100) Mean Corpuscular Hemoglobin 30 pg (25-35) Mean Corpuscular Hemoglobin Concent 33 g/dL (31-37) Red Cell Distribution Width 14.6 % (11.5-14.5) H Platelet Count 310 x10^3/uL (140-400) Neutrophils (%) (Auto) 78 % (31-73) H Lymphocytes (%) (Auto) 13 % (24-48) L Monocytes (%) (Auto) 6 % (0-9) Eosinophils (%) (Auto) 3 % (0-3) Basophils (%) (Auto) 0 % (0-3) Neutrophils # (Auto) 6.3 x10^3uL (1.8-7.7) Lymphocytes # (Auto) 1.0 x10^3/uL (1.0-4.8) Monocytes # (Auto) 0.4 x10^3/uL (0.0-1.1) Eosinophils # (Auto) 0.3 x10^3/uL (0.0-0.7) Basophils # (Auto) 0.0 x10^3/uL (0.0-0.2) Prothrombin Time 17.6 SEC (11.7-14.0) H Prothrombin Time INR 1.5 (0.8-1.1) H Sodium Level 141 mmol/L (136-145) Potassium Level 4.8 mmol/L (3.5-5.1) Chloride Level 104 mmol/L (98-107) Carbon Dioxide Level 29 mmol/L (21-32) Anion Gap 8 (6-14) Blood Urea Nitrogen 17 mg/dL (8-26) Creatinine 1.1 mg/dL (0.7-1.3) Estimated GFR (Cockcroft-Gault) 68.5 BUN/Creatinine Ratio 15 (6-20) Glucose Level 245 mg/dL (70-99) H Calcium Level 9.0 mg/dL (8.5-10.1) Magnesium Level 1.6 mg/dL (1.8-2.4) L Total Bilirubin 0.7 mg/dL (0.2-1.0) Aspartate Amino Transferase (AST) 19 U/L (15-37) Alanine Aminotransferase (ALT) 28 U/L (16-63) Alkaline Phosphatase 96 U/L (46-116) Creatine Kinase 58 U/L (39-308) Troponin I Quantitative < 0.017 ng/mL (0.000-0.055) JR-Owm-L-Type Natriuretic Peptide 361 pg/mL (0-124) H Total Protein 7.1 g/dL (6.4-8.2) Albumin 3.1 g/dL (3.4-5.0) L Albumin/Globulin Ratio 0.8 (1.0-1.7) L Urine Collection Type Unknown Urine Color Yellow Urine Clarity Clear Urine pH 5.5 Urine Specific [place] 1.020 Urine Protein 30 mg/dL (NEG-TRACE) Urine Glucose (UA) Negative mg/dL (NEG) Urine Ketones (Stick) Negative mg/dL (NEG) Urine Blood Negative (NEG) Urine Nitrite Negative (NEG) Urine Bilirubin Negative (NEG) Urine Urobilinogen Dipstick 0.2 mg/dL (0.2 mg/dL) Urine Leukocyte Esterase Negative (NEG) Urine RBC 0 /HPF (0-2) Urine WBC 0 /HPF (0-4) Urine Squamous Epithelial Cells Few /LPF Urine Bacteria 0 /HPF (0-FEW) Urine Hyaline Casts Few /HPF Urine Mucus Marked /LPF Laboratory Tests 09/09/18 13:14 Laboratory Tests 09/09/18 13:14 EKG EKG EKG interpreted by me. EKG at 1319 showed atrial fibrillation with rate of 62, poor R-wave progress in anteroseptal leads, no acute ST and T-wave abnormalities Radiology/Procedures Radiology/Procedures [facility] [address] [place] [address] IMAGING REPORT Signed PATIENT: MEL OSORIO ACCOUNT: [id number] : 1960 LOCATION: ER AGE: 58 SEX: M EXAM STATUS: REG ER ORD. PHYSICIAN: EDELMIRA CLARK MD REASON: altered level of consciousness PROCEDURE: CT HEAD WO CONTRAST CT HEAD INDICATION: H/O STROKE LETHARGIC AND REFUSING TO EAT X 3-4 DAYS COMPARISON: 06/16/2018 Exposure: One or more of the following individualized dose reduction techniques were utilized for this examination: 1. Automated exposure control 2. Adjustment of the mA and/or kV according to patient size 3. Use of iterative reconstruction technique TECHNIQUE: 5 mm contiguous axial images were obtained from the skull base to the vertex in both bone and soft tissue algorithm. FINDINGS: Large old infarct left MCA territory similar to prior exam. Mild bilateral periventricular white matter hypodensities likely chronic small vessel ischemic disease. No evidence of acute intracranial hemorrhage. No extra-axial fluid collections. No mass effect or midline shift. Ventricular size is appropriate. Basal cisterns are patent. No fractures identified. Globes and orbits are within normal limits. Mild mucosal thickening identified in the bilateral maxillary sinuses. IMPRESSION: 1. Large old left MCA infarct similar to prior exam. If acute infarct is clinically suspected MRI can be considered. Electronically signed by: William Wall MD (09/09/2018 2:27 PM) [place] [id number] DICTATED and SIGNED BY: WILLIAM WALL MD DATE: 09/09/18 1421 [facility] [address] [place] [address] IMAGING REPORT Signed PATIENT: MEL OSORIO ACCOUNT: [id number] : 1960 LOCATION: ER AGE: 58 SEX: M EXAM STATUS: REG ER ORD. PHYSICIAN: EDELMIRA CLARK MD REASON: altered level of consciousness/ PROCEDURE: PORTABLE CHEST 1V EXAM: CHEST 1 VIEW History: Altered consciousness COMPARISON: 06/16/2018 TECHNIQUE: Single portable radiograph of the chest FINDINGS: The cardiac silhouette is unremarkable. Probable mild left lung base airspace opacity likely atelectasis or infiltrate. IMPRESSION: Probable mild left lung base airspace opacity likely atelectasis or infiltrate. Electronically signed by: William Wall MD (09/09/2018 1:41 PM) [facility] DICTATED and SIGNED BY: WILLIAM WALL MD DATE: 09/09/18 1332 Course & Med Decision Making Course & Med Decision Making Pertinent Labs and Imaging studies reviewed. (See chart for details) Evaluation of patient in ER showed 58-year-old a few sick patient with right- sided weakness resident of [facility] brought in because of refusing to eat for the last 3 days. Patient did not have sign of dehydration and labs was unremarkable. Patient had the same episode previously. Patient had oral intake without problem in ER. Plan discharge patient [facility] instruction to follow with primary care physician for treatment of depression. Dragon Disclaimer Dragon Disclaimer This electronic medical record was generated, in whole or in part, using a voice recognition dictation system. Departure Departure Impression: Primary Impression: Refuses to eat Additional Impressions: History of CVA (cerebrovascular accident) Aphasia complicating stroke Depression Atrial fibrillation Disposition: 01 HOME, SELF-CARE (discharge d to [facility] at 1445) Condition: STABLE Referrals: FRANCHESCA GUILLEN MD (PCP) Patient Instructions: Eating Disorders, Stroke Prevention Additional Instructions: Drink plenty of liquids Follow-up with your primary care physician in 2 days Return to ER if not getting better Problem Qualifiers EDELMIRA CLARK MD Sep 09, 2018 14:49
[2018-09-09 15:01] VITALS: BP 121/66
== END 2018-09-09 16:45 | disposition home or self-care (01) ==
LOC: ER 12:11
DX: I69.320 Aphasia following cerebral infarction (principal); I11.9 Hypertensive heart disease without heart failure; F32.9 Major depressive disorder, single episode, unspecified; I48.91 Unspecified atrial fibrillation; F50.9 Eating disorder, unspecified; Z68.31 Body mass index [BMI] 31.0-31.9, adult; E78.00 Pure hypercholesterolemia, unspecified; R53.83 Other fatigue; Z88.0 Allergy status to penicillin; Z88.5 Allergy status to narcotic agent; Z88.7 Allergy status to serum and vaccine
CPT/HCPCS: 36415; 70450; 71045; 80053; 81001; 82550; 83735; 83880; 84484; 85025; 85610; 93005; 99284; P9612

== ENCOUNTER 2019-03-04 16:47 | Inpatient (IN) | payer MEDICARE, OTHER ==
[~2019-03-04] VITALS: Ht 177.8 cm; Wt 110.7 kg
[2019-03-04 17:18] LABS: BASO # 0.1 x10^3/uL (0.0-0.2); BASO % 1 % (0-3); EOS # 0.2 x10^3/uL (0.0-0.7); EOS % 3 % (0-3); HEMATOCRIT 43.7 % (39.0-53.0); LYMPH # 1.9 x10^3/uL (1.0-4.8); LYMPH % 19 % (24-48); MEAN CORPUSCULAR HEMOGLOBIN 31 pg (25-35); MEAN CORPUSCULAR HGB CONC 34 g/dL (31-37); MEAN CORPUSCULAR VOLUME 90 fL (79-100); MONO # 0.7 x10^3/uL (0.0-1.1); MONO % 7 % (0-9); NEUT % 71 % (31-73); PLATELET COUNT 262 x10^3/uL (140-400); RED BLOOD COUNT 4.86 x10^6/uL (4.30-5.70); RED CELL DISTRIBUTION WIDTH 13.9 % (11.5-14.5); WHITE BLOOD COUNT 9.9 x10^3/uL (4.0-11.0)
[2019-03-04 17:26] LABS: PROTHROMBIN TIME PATIENT 14.9 SEC (11.7-14.0)
--- NOTE | 2019-03-04 17:26 | PHYS DOC ---
Past Medical History Past Medical History: A-Fib, Depression, Diabetes-Type II, High Cholesterol, Heart Disease, Hypertension, Stroke Additional Past Medical Histor: rt side deficit, aphasia Past Surgical History: Other Additional Past Surgical Histo: unknown Alcohol Use: None Drug Use: None Adult General Chief Complaint Chief Complaint: ALTERED MENTAL STATUS HPI HPI Patient is a 58-year-old medically noncompliant male from the [facility] who presents with an altered mental status. Apparently the patient is essentially nonverbal at baseline. He did vomit today. There's been no new medicines that were reported. Patient is unable to provide any history secondary to his altered mental status however there is been no report of a productive cough or fever.] Review of Systems Review of Systems Review of systems is unobtainable secondary to altered mental status and nonverbal status. Current Medications Current Medications Current Medications Medications (Trade) Dose Ordered Sig/Judi Start Time Stop Time Status Last Admin Dose Admin Sodium Chloride 1,000 ml @ 125 mls/hr Q8H 03/04/19 17:38 03/05/19 14:29 DC 03/05/19 03:15 125 MLS/HR Allergies Allergies Allergies Coded Allergies Type Severity Reaction Last Updated Verified Influenza Virus Vaccines Allergy Intermediate 02/12/18 Yes Penicillins Allergy Intermediate 02/12/18 Yes hydrocodone Allergy Intermediate 02/12/18 Yes Physical Exam Physical Exam Constitutional: Disheveled appears acutely ill [] HENT: Normocephalic, atraumatic, bilateral external ears normal, dry mucous membranes, nose normal. [] Eyes: Pupils are 2 mm and sluggishly reactive to light. [] Neck: Normal range of motion, no tenderness, supple, no stridor. [] Cardiovascular: Tachycardic no murmur[] Lungs & Thorax: Bibasilar rhonchi[] Abdomen: Morbidly obese[] Skin: Warm, dry, no erythema, no rash. [] Back: No tenderness, no CVA tenderness. [] Extremities: No tenderness, no cyanosis, no clubbing, ROM intact, no edema. [] Neurologic: Responds to painful stimuli. [] Psychologic: Unable to assess[] Current Patient Data Vital Signs Vital Signs Date Time Temp Pulse Resp B/P (MAP) Pulse Ox O2 Delivery O2 Flow Rate FiO2 03/04/19 17:03 98.6 81 16 152/87 (108) 98 Room Air 98.6 Lab Values Laboratory Tests Test 03/04/19 15:10 03/04/19 16:54 03/04/19 17:35 White Blood Count 9.9 x10^3/uL (4.0-11.0) Red Blood Count 4.86 x10^6/uL (4.30-5.70) Hemoglobin 15.0 g/dL (13.0-17.5) Hematocrit 43.7 % (39.0-53.0) Mean Corpuscular Volume 90 fL (79-100) Mean Corpuscular Hemoglobin 31 pg (25-35) Mean Corpuscular Hemoglobin Concent 34 g/dL (31-37) Red Cell Distribution Width 13.9 % (11.5-14.5) Platelet Count 262 x10^3/uL (140-400) Neutrophils (%) (Auto) 71 % (31-73) Lymphocytes (%) (Auto) 19 % (24-48) L Monocytes (%) (Auto) 7 % (0-9) Eosinophils (%) (Auto) 3 % (0-3) Basophils (%) (Auto) 1 % (0-3) Neutrophils # (Auto) 7.0 x10^3/uL (1.8-7.7) Lymphocytes # (Auto) 1.9 x10^3/uL (1.0-4.8) Monocytes # (Auto) 0.7 x10^3/uL (0.0-1.1) Eosinophils # (Auto) 0.2 x10^3/uL (0.0-0.7) Basophils # (Auto) 0.1 x10^3/uL (0.0-0.2) Prothrombin Time 14.9 SEC (11.7-14.0) H Prothrombin Time INR 1.2 (0.8-1.1) H Sodium Level 134 mmol/L (136-145) L Potassium Level 4.5 mmol/L (3.5-5.1) Chloride Level 97 mmol/L (98-107) L Carbon Dioxide Level 27 mmol/L (21-32) Anion Gap 10 (6-14) Blood Urea Nitrogen 19 mg/dL (8-26) Creatinine 1.1 mg/dL (0.7-1.3) Estimated GFR (Cockcroft-Gault) 68.5 BUN/Creatinine Ratio 17 (6-20) Glucose Level 467 mg/dL (70-99) H Calcium Level 9.2 mg/dL (8.5-10.1) Magnesium Level 1.9 mg/dL (1.8-2.4) Total Bilirubin 0.7 mg/dL (0.2-1.0) Aspartate Amino Transferase (AST) 21 U/L (15-37) Alanine Aminotransferase (ALT) 33 U/L (16-63) Alkaline Phosphatase 104 U/L (46-116) Troponin I Quantitative < 0.017 ng/mL (0.000-0.055) Total Protein 7.7 g/dL (6.4-8.2) Albumin 3.2 g/dL (3.4-5.0) L Albumin/Globulin Ratio 0.7 (1.0-1.7) L Glucose (Fingerstick) 455 mg/dL (70-99) H Urine Collection Type Unknown Urine Color Yellow Urine Clarity Clear Urine pH 6.5 Urine Specific [place] >=1.030 Urine Protein Negative mg/dL (NEG-TRACE) Urine Glucose (UA) >=1000 mg/dL (NEG) Urine Ketones (Stick) 15 mg/dL (NEG) Urine Blood Negative (NEG) Urine Nitrite Negative (NEG) Urine Bilirubin Negative (NEG) Urine Urobilinogen Dipstick 1.0 mg/dL (0.2 mg/dL) Urine Leukocyte Esterase Negative (NEG) Urine RBC 0 /HPF (0-2) Urine WBC 0 /HPF (0-4) Urine Bacteria Moderate /HPF (0-FEW) Lactic Acid Level 1.8 mmol/L (0.4-2.0) Urine Opiates Screen Neg (NEG) Urine Methadone Screen Neg (NEG) Urine Barbiturates Neg (NEG) Urine Phencyclidine Screen Neg (NEG) Urine Amphetamine/Methamphetamine Neg (NEG) Urine Benzodiazepines Screen Neg (NEG) Urine Cocaine Screen Neg (NEG) Urine Cannabinoids Screen Neg (NEG) Urine Ethyl Alcohol Neg (NEG) Laboratory Tests 03/04/19 15:10 Laboratory Tests 03/04/19 15:10 EKG EKG [] Interpretation Time: EKG: Atrial fibrillation rate of [address]-T changes Radiology/Procedures Radiology/Procedures [] Impressions: REASON: altered mental status, PT UNCOOPERATIVE, PRIOR SENT PROCEDURE: CT HEAD WO CONTRAST CT brain without contrast. HISTORY: Uncooperative, altered mental status CT scan of the brain was done without contrast. There is motion artifact. There is no intracranial hemorrhage or subdural hematoma. Ventricles are normal in size. There is no shift of the midline or mass. There is an old left middle cerebral artery CVA with encephalomalacia with little change compared to an old study from September 2018. An acute CVA is not identified. IMPRESSION: 1. Encephalomalacia from old left middle cerebral artery CVA. 2. No intracranial hemorrhage or mass or acute CVA noted. 3. Some limitations due to motion artifact. Course & Med Decision Making Course & Med Decision Making Pertinent Labs and Imaging studies reviewed. (See chart for details) [ED course: Evaluation reveals a 58-year-old acute on chronically ill male with altered mental status. His blood sugar is elevated he was given subcutaneous insulin during his stay in the department his blood pressure was stable throughout his stay in the department. He was given broad-spectrum antibiotics to cover for any possible infection] Dragon Disclaimer Dragon Disclaimer This electronic medical record was generated, in whole or in part, using a voice recognition dictation system. Departure Departure Impression: Primary Impression: Mental status change Disposition: ADMITTED INPATIENT Admitting Physician: BRI Condition: GUARDED Referrals: FRANCHESCA GUILLEN MD (PCP) Critical Care Note Total Time (mins): 30 Comments CRITICAL CARE: Time spent was 35 minutes. This includes medical management, evaluation, reevaluation, discussion with consultants and family. Critical Care does NOT include time spent on separately billed procedures. GINA GUILLEN DO Mar 04, 2019 17:26
[2019-03-04 17:32] LABS: CALCIUM 9.2 mg/dL (8.5-10.1); CREATININE 1.1 mg/dL (0.7-1.3); GFR 68.5; POTASSIUM 4.5 mmol/L (3.5-5.1)
[2019-03-04 17:38] LABS: ALBUMIN 3.2 g/dL (3.4-5.0); ALBUMIN/GLOBULIN RATIO 0.7 (1.0-1.7); MAGNESIUM 1.9 mg/dL (1.8-2.4); TOTAL BILIRUBIN 0.7 mg/dL (0.2-1.0); TOTAL PROTEIN 7.7 g/dL (6.4-8.2)
[2019-03-04 17:43] LABS: BILIRUBIN,URINE NEGATIVE (NEG); CLARITY,URINE CLEAR; COLOR,URINE YELLOW; NITRITE,URINE NEGATIVE (NEG); PH,URINE 6.5; PROTEIN,URINE NEGATIVE (NEG-TRACE)
[2019-03-04] MEDS ORDERED: DEXTROSE 50% 25 GM / 50ML DISP.SYRIN. IV PRN (17:45)
[2019-03-04] MEDS ORDERED: ONDANSETRON PF 4 MG/2 ML VIAL. IV PRN ×2 (17:45→18:15)
[2019-03-04 17:49] LABS: BACTERIA,URINE MODERATE /HPF (0-FEW); RBC,URINE 0 /HPF (0-2); WBC,URINE 0 /HPF (0-4)
[2019-03-04 17:51] LABS: BARBITURATES NEG (NEG); BENZODIAZEPINES NEG (NEG); CANNABINOIDS NEG (NEG); COCAINE NEG (NEG); METHADONE NEG (NEG); OPIATES NEG (NEG); PHENCYCLIDINE NEG (NEG)
[2019-03-04 17:59] LABS: AMPHETAMINE/METHAMPHETAMINE NEG (NEG)
--- NOTE | 2019-03-04 18:02 | RAD ---
CT brain without contrast. HISTORY: Uncooperative, altered mental status CT scan of the brain was done without contrast. There is motion artifact. There is no intracranial hemorrhage or subdural hematoma. Ventricles are normal in size. There is no shift of the midline or mass. There is an old left middle cerebral artery CVA with encephalomalacia with little change compared to an old study from September 2018. An acute CVA is not identified. IMPRESSION: 1. Encephalomalacia from old left middle cerebral artery CVA. 2. No intracranial hemorrhage or mass or acute CVA noted. 3. Some limitations due to motion artifact. PQRS Compliance Statement: One or more of the following individualized dose reduction techniques were utilized for this examination: 1. Automated exposure control 2. Adjustment of the mA and/or kV according to patient size 3. Use of iterative reconstruction technique Electronically signed by: All Ontiveros MD (03/04/2019 5:59 PM) [id number]
[2019-03-04] MEDS ORDERED: ACETAMINOPHEN 500 MG TABLET PO PRN (18:15)
[2019-03-04] MEDS ORDERED: INSULIN REGULAR 100 UNIT/ML 3ML VIAL. SQ ONE (18:15)
[2019-03-04] MEDS ORDERED: ACETAMINOPHEN PO SCH (18:15)
--- NOTE | 2019-03-04 18:23 | PDOC1 ---
History and Physical Date of Admission Date of Admission DATE: 03/04/19 TIME: 18:15 Identification/Chief Complaint Chief Complaint altered MS Source Source: Caregiver, Chart review, Patient History of Present Illness History of Present Illness He is a resident of SNU in [place], 58-year-old white male accompanied by no one brought in by EMS because of change in mental status at SNU. Usually very talkative but minimally verbal today. He has a ton of medical history including MRSA bacteremia, noncompliance, hypertension, CVA, A. fib on Eliquis, diabetes insulin requiring, atherosclerotic heart disease, maybe hypothyroidism, maybe obstructive sleep apnea undiagnosed, history of hypoxia hypercapnic respiratory failure. His BMI is 35. Did receive Narcan with no resolve of presentation. Blood sugar 457 with mild hyponatremia 134, chloride [address] head negative. Chest x-ray still pending. He is still still sleepy and drowsy to communicate with me. We will admit, hold off antibiotics for now (UA clean) but nystatin powder cream in between creases is fine. He has allergies to penicillin, influenza, hydrocodone but unknown reaction. I have reviewed all meds and continue to okay to continue everything using if he's awake enough to swallow pills but hold off any tramadol gabapentin or Celexa because of altered mental status Full code Further recs pending course I will involve palliativeif he is not improving but so far too early to tell HE is very "yeasty" on PE Past Medical History Cardiovascular: AFIB, CAD, CHF, HTN CENTRAL NERVOUS SYSTEM: CVA Psych: Depression Infectious disease: Other Endocrine: Diabetes Past Surgical History Past Surgical History: Other Family History Family History: Hypertension, Family History Unknown Social History Smoke: No ALCOHOL: none Drugs: None, Other Current Medications Current Medications Current Medications Insulin Human Regular (HumuLIN R VIAL) 20 unit 1X ONCE SQ ; Start 03/04/19 at 18:15; Stop 03/04/19 at 18:16 Ondansetron HCl (Zofran) 4 mg PRN Q8HRS PRN IV NAUSEA/VOMITING; Start 03/04/19 at 17:45; Stop 03/05/19 at 17:44 Sodium Chloride 1,000 ml @ 125 mls/hr Q8H IV ; Start 03/04/19 at 17:38; Stop 03/05/19 at 17:37 Insulin Human Lispro (HumaLOG) 0-9 UNITS TIDWMEALS SQ ; Start 03/05/19 at 08:00 Dextrose (Dextrose 50%-Water Syringe) 12.5 gm PRN Q15MIN PRN IV SEE COMMENTS; Start 03/04/19 at 17:45 Active Scripts Active Tramadol Hcl 50 Mg Tablet 50 Mg PO PRN Q8HRS PRN 6 Days Reported Acetaminophen 160 Mg/5 Ml Oral.susp 2.5 Ml PO PRN Q6HRS Seroquel (Quetiapine Fumarate) 25 Mg Tablet 25 Mg PO HS Seroquel (Quetiapine Fumarate) 25 Mg Tablet 12.5 Mg PO DAILYWLUN Magnesium Oxide 400 Mg Tablet 1 Tab PO DAILY Losartan Potassium 50 Mg Tablet 50 Mg PO DAILY Gabapentin (Gabapentin) 400 Mg Capsule 400 Mg PO QID Eliquis (Apixaban) 5 Mg Tablet 5 Mg PO BID Celexa (Citalopram Hydrobromide) 20 Mg Tablet 30 Mg PO DAILY Carvedilol (Carvedilol) 6.25 Mg Tablet 1 Tab PO BID Baclofen 10 Mg Tablet 1 Tab PO TID Atorvastatin Calcium 40 Mg Tablet 1 Tab PO QHS Aspirin 81 Mg Tab.chew 1 Tab PO DAILY Aldactone (Spironolactone) 25 Mg Tablet 1 Tab PO DAILY Allergies Allergies: Coded Allergies: Influenza Virus Vaccines (Verified Allergy, Intermediate, 02/12/18) Penicillins (Verified Allergy, Intermediate, 02/12/18) hydrocodone (Verified Allergy, Intermediate, 02/12/18) ROS Review of System Sleepy drowsy hence ROS unobtainable Physical Exam General: No acute distress, Other (protecting airway drowsy, but arouses to stimulation) HEENT: Atraumatic, PERRLA, EOMI, Mucous membr. moist/pink Lungs: Normal air movement, Other (decreased breath sounds, no wheezing) Heart: S1S2, RRR, no thrills, no rubs, no gallops, no murmurs Cardiovascular: S1, S2 Abdomen: Normal bowel sounds, Soft, No tenderness, No hepatosplenomegaly, No masses, Other (moist intertriginous areas, yeasty) PELVIC: Nml ext genitalia Extremities: No clubbing, No cyanosis, No edema, Normal pulses, No tendernes s/swelling Vitals Vitals Vital Signs Date Time Temp Pulse Resp B/P (MAP) Pulse Ox O2 Delivery O2 Flow Rate FiO2 03/04/19 17:03 98.6 81 16 152/87 (108) 98 Room Air 98.6 Labs Labs Laboratory Tests Test 03/04/19 15:10 03/04/19 16:54 03/04/19 17:35 White Blood Count 9.9 x10^3/uL (4.0-11.0) Red Blood Count 4.86 x10^6/uL (4.30-5.70) Hemoglobin 15.0 g/dL (13.0-17.5) Hematocrit 43.7 % (39.0-53.0) Mean Corpuscular Volume 90 fL (79-100) Mean Corpuscular Hemoglobin 31 pg (25-35) Mean Corpuscular Hemoglobin Concent 34 g/dL (31-37) Red Cell Distribution Width 13.9 % (11.5-14.5) Platelet Count 262 x10^3/uL (140-400) Neutrophils (%) (Auto) 71 % (31-73) Lymphocytes (%) (Auto) 19 % (24-48) Monocytes (%) (Auto) 7 % (0-9) Eosinophils (%) (Auto) 3 % (0-3) Basophils (%) (Auto) 1 % (0-3) Neutrophils # (Auto) 7.0 x10^3/uL (1.8-7.7) Lymphocytes # (Auto) 1.9 x10^3/uL (1.0-4.8) Monocytes # (Auto) 0.7 x10^3/uL (0.0-1.1) Eosinophils # (Auto) 0.2 x10^3/uL (0.0-0.7) Basophils # (Auto) 0.1 x10^3/uL (0.0-0.2) Prothrombin Time 14.9 SEC (11.7-14.0) Prothromb Time International Ratio 1.2 (0.8-1.1) Sodium Level 134 mmol/L (136-145) Potassium Level 4.5 mmol/L (3.5-5.1) Chloride Level 97 mmol/L (98-107) Carbon Dioxide Level 27 mmol/L (21-32) Anion Gap 10 (6-14) Blood Urea Nitrogen 19 mg/dL (8-26) Creatinine 1.1 mg/dL (0.7-1.3) Estimated GFR (Cockcroft-Gault) 68.5 BUN/Creatinine Ratio 17 (6-20) Glucose Level 467 mg/dL (70-99) Calcium Level 9.2 mg/dL (8.5-10.1) Magnesium Level 1.9 mg/dL (1.8-2.4) Total Bilirubin 0.7 mg/dL (0.2-1.0) Aspartate Amino Transf (AST/SGOT) 21 U/L (15-37) Alanine Aminotransferase (ALT/SGPT) 33 U/L (16-63) Alkaline Phosphatase 104 U/L (46-116) Troponin I Quantitative < 0.017 ng/mL (0.000-0.055) Total Protein 7.7 g/dL (6.4-8.2) Albumin 3.2 g/dL (3.4-5.0) Albumin/Globulin Ratio 0.7 (1.0-1.7) Glucose (Fingerstick) 455 mg/dL (70-99) Urine Collection Type Unknown Urine Color Yellow Urine Clarity Clear Urine pH 6.5 Urine Specific [place] >=1.030 Urine Protein Negative mg/dL (NEG-TRACE) Urine Glucose (UA) >=1000 mg/dL (NEG) Urine Ketones (Stick) 15 mg/dL (NEG) Urine Blood Negative (NEG) Urine Nitrite Negative (NEG) Urine Bilirubin Negative (NEG) Urine Urobilinogen Dipstick 1.0 mg/dL (0.2 mg/dL) Urine Leukocyte Esterase Negative (NEG) Urine RBC 0 /HPF (0-2) Urine WBC 0 /HPF (0-4) Urine Bacteria Moderate /HPF (0-FEW) Lactic Acid Level 1.8 mmol/L (0.4-2.0) Urine Opiates Screen Neg (NEG) Urine Methadone Screen Neg (NEG) Urine Barbiturates Neg (NEG) Urine Phencyclidine Screen Neg (NEG) Urine Amphetamine/Methamphetamine Neg (NEG) Urine Benzodiazepines Screen Neg (NEG) Urine Cocaine Screen Neg (NEG) Urine Cannabinoids Screen Neg (NEG) Urine Ethyl Alcohol Neg (NEG) Laboratory Tests Test 03/04/19 15:10 03/04/19 16:54 03/04/19 17:35 White Blood Count 9.9 x10^3/uL (4.0-11.0) Red Blood Count 4.86 x10^6/uL (4.30-5.70) Hemoglobin 15.0 g/dL (13.0-17.5) Hematocrit 43.7 % (39.0-53.0) Mean Corpuscular Volume 90 fL (79-100) Mean Corpuscular Hemoglobin 31 pg (25-35) Mean Corpuscular Hemoglobin Concent 34 g/dL (31-37) Red Cell Distribution Width 13.9 % (11.5-14.5) Platelet Count 262 x10^3/uL (140-400) Neutrophils (%) (Auto) 71 % (31-73) Lymphocytes (%) (Auto) 19 % (24-48) Monocytes (%) (Auto) 7 % (0-9) Eosinophils (%) (Auto) 3 % (0-3) Basophils (%) (Auto) 1 % (0-3) Neutrophils # (Auto) 7.0 x10^3/uL (1.8-7.7) Lymphocytes # (Auto) 1.9 x10^3/uL (1.0-4.8) Monocytes # (Auto) 0.7 x10^3/uL (0.0-1.1) Eosinophils # (Auto) 0.2 x10^3/uL (0.0-0.7) Basophils # (Auto) 0.1 x10^3/uL (0.0-0.2) Prothrombin Time 14.9 SEC (11.7-14.0) Prothromb Time International Ratio 1.2 (0.8-1.1) Sodium Level 134 mmol/L (136-145) Potassium Level 4.5 mmol/L (3.5-5.1) Chloride Level 97 mmol/L (98-107) Carbon Dioxide Level 27 mmol/L (21-32) Anion Gap 10 (6-14) Blood Urea Nitrogen 19 mg/dL (8-26) Creatinine 1.1 mg/dL (0.7-1.3) Estimated GFR (Cockcroft-Gault) 68.5 BUN/Creatinine Ratio 17 (6-20) Glucose Level 467 mg/dL (70-99) Calcium Level 9.2 mg/dL (8.5-10.1) Magnesium Level 1.9 mg/dL (1.8-2.4) Total Bilirubin 0.7 mg/dL (0.2-1.0) Aspartate Amino Transf (AST/SGOT) 21 U/L (15-37) Alanine Aminotransferase (ALT/SGPT) 33 U/L (16-63) Alkaline Phosphatase 104 U/L (46-116) Troponin I Quantitative < 0.017 ng/mL (0.000-0.055) Total Protein 7.7 g/dL (6.4-8.2) Albumin 3.2 g/dL (3.4-5.0) Albumin/Globulin Ratio 0.7 (1.0-1.7) Glucose (Fingerstick) 455 mg/dL (70-99) Urine Collection Type Unknown Urine Color Yellow Urine Clarity Clear Urine pH 6.5 Urine Specific [place] >=1.030 Urine Protein Negative mg/dL (NEG-TRACE) Urine Glucose (UA) >=1000 mg/dL (NEG) Urine Ketones (Stick) 15 mg/dL (NEG) Urine Blood Negative (NEG) Urine Nitrite Negative (NEG) Urine Bilirubin Negative (NEG) Urine Urobilinogen Dipstick 1.0 mg/dL (0.2 mg/dL) Urine Leukocyte Esterase Negative (NEG) Urine RBC 0 /HPF (0-2) Urine WBC 0 /HPF (0-4) Urine Bacteria Moderate /HPF (0-FEW) Lactic Acid Level 1.8 mmol/L (0.4-2.0) Urine Opiates Screen Neg (NEG) Urine Methadone Screen Neg (NEG) Urine Barbiturates Neg (NEG) Urine Phencyclidine Screen Neg (NEG) Urine Amphetamine/Methamphetamine Neg (NEG) Urine Benzodiazepines Screen Neg (NEG) Urine Cocaine Screen Neg (NEG) Urine Cannabinoids Screen Neg (NEG) Urine Ethyl Alcohol Neg (NEG) VTE Prophylaxis Ordered VTE Prophylaxis Devices: Yes VTE Pharmacological Prophylaxi: Yes Assessment/Plan Assessment/Plan SIRS with no organ dysfunction Metabolic encephalopathy could be HO NK or meds induced - status post Narcan with no resolve Mild hyponatremia/pseudohyponat HONK diabetes type 2, blood sugar 467 BNP elevation 467 unknown clinical significance Morbid obese BMI 35 Superficial candidiasis intertriginous areas Allergies to penicillin hydrocodone influenza and virus vaccines History A. fib on OAC (eliquis) History of MRSA bacteremia History CVA, on OAC eliquis Hypertension on losartan other meds PLAn: PT OT, nothing by mouth until further awakes If he awakes,ok to continue all meds including Eliquis Hold of abx for now (UA clean, CXR pending) Telemetry bed Awaiting chest x-ray UA looks clean Status post regular insulin 20 (BS 400s), SSI insulin high-dose and will resume home regimen and I will adjust insulin when necessary depending on blood sugar Agree with IV fluid hydration Status post Narcan but no resolve Full code Back to SNU on discharge Further recs pending course Palliative if not improving in days to come Seen at ER, discussed with JESSIE Mccann and staff LIZ IVEY MD Mar 04, 2019 18:23
[2019-03-04] MEDS: IV NORMAL SALINE 1000ML BAG 1,000 ML IV SCH (18:29)
--- NOTE | 2019-03-04 19:53 | RAD ---
Exam: Frontal view of the chest INDICATION: Altered mental status TECHNIQUE: Frontal view of the chest Comparisons: September 09, 2018 FINDINGS: The cardiomediastinal silhouette and pulmonary vessels are within normal limits. The lung and pleural spaces are clear. IMPRESSION: No acute cardiopulmonary process. Electronically signed by: Bib Dacosta MD (03/04/2019 7:50 PM) [facility]
[2019-03-04 19:56] VITALS: BP 140/89
[2019-03-04] MEDS: NYSTATIN TOPICAL POWDER 15GM BOTTLE. TP SCH (20:48)
[2019-03-04] MEDS: APIXABAN 5 MG TABLET. PO SCH (20:49)
[2019-03-04] MEDS ORDERED: INSULIN GLARGINE 300 UNITS/3 ML INSULN.PEN. SQ SCH (21:00)
[2019-03-04] MEDS ORDERED: ATORVASTATIN CALCIUM 40 MG TABLET. PO SCH (21:00)
[2019-03-04 22:49] VITALS: BP 111/65
[2019-03-05] MEDS ORDERED: DULO60CA6 PO (01:12)
[2019-03-05] MEDS ORDERED: ARIP5TAB13 PO (01:12)
[2019-03-05] MEDS ORDERED: TRAZ-118 PO (02:04)
[2019-03-05] MEDS ORDERED: MAGN400O7 PO (02:04)
[2019-03-05] MEDS ORDERED: METH120C4 TP (02:04)
[2019-03-05] MEDS ORDERED: CHOL500016 PO (02:04)
[2019-03-05] MEDS ORDERED: NYST15CR TP (02:04)
[2019-03-05] MEDS ORDERED: METF500T9 PO (02:04)
[2019-03-05] MEDS ORDERED: MAG30ORA PO (02:04)
[2019-03-05] MEDS ORDERED: NEOM28.43 TP (02:04)
[2019-03-05] MEDS ORDERED: MIRT15TA3 PO (02:04)
[2019-03-05 02:54] VITALS: BP 109/59
[2019-03-05] MEDS: IV NORMAL SALINE 1000ML BAG 1,000 ML IV SCH (03:15)
--- NOTE | 2019-03-05 06:59 | EKG ---
[facility] [address] [place] [address] Test Date: 2019-03-04 Test Time: 16:54:32 Pat Name: MEL OSORIO Department: Room: Gender: M [employer]: : 1960 Requested By: GINA GUILLEN Order Number: [id number] Reading MD: Measurements Intervals [place] Rate: 80 P: MS: QRS: 118 QRSD: 96 T: 41 QT: 386 QTc: 448 Interpretive Statements ATRIAL FIBRILLATION ABNORMAL RIGHT AXIS DEVIATION LOW LIMB LEAD VOLTAGE QRS(T) CONTOUR ABNORMALITY CONSISTENT WITH ANTEROSEPTAL INFARCT PROBABLY OLD ABNORMAL ECG No previous ECG available for comparison
[2019-03-05 07:44] VITALS: BP 123/77
[2019-03-05] MEDS ORDERED: CARVEDILOL 6.25 MG TABLET. PO SCH (08:00)
[2019-03-05] MEDS ORDERED: INSULIN LISPRO 300 UNITS/3 ML INSULN.PEN. SQ SCH ×2 (08:00→12:00)
[2019-03-05] MEDS ORDERED: MAGNESIUM OXIDE 400 MG TABLET PO SCH (09:00)
[2019-03-05] MEDS ORDERED: SPIRONOLACTONE 25 MG TABLET PO SCH (09:00)
[2019-03-05] MEDS ORDERED: ASPIRIN CHEWABLE 81 MG TABLET. PO SCH (09:00)
[2019-03-05] MEDS ORDERED: LOSARTAN POTASSIUM 50 MG TABLET. PO SCH (09:00)
[2019-03-05] MEDS: APIXABAN 5 MG TABLET. PO SCH (09:00)
[2019-03-05] MEDS: NYSTATIN TOPICAL POWDER 15GM BOTTLE. TP SCH (09:00)
[2019-03-05] MEDS ORDERED: ANTI-COAG MONITOR BY PHARMACY. MC PRN (10:00)
--- NOTE | 2019-03-05 10:27 | NUR ---
Lab personnel told this RN patient refused lab draw. This RN talked to patient and educated patient on the importance of lab values. Patient still refused.
[2019-03-05 11:30] VITALS: BP 129/80
--- NOTE | 2019-03-05 12:50 | NUR ---
THE PT. REFUSED EEG. BECAME AGRESSIVE WHEN I TRIED TO EXPLAIN IMPORTANCE OF EXAM, THEN AGAIN REFUSED
[2019-03-05] MEDS ORDERED: MAGNESIUM HYDROXIDE 2,400 MG/30 ML ORAL.SUSP. PO PRN (13:00)
[2019-03-05] MEDS ORDERED: GABAPENTIN 400 MG CAPSULE. PO SCH (13:00)
--- NOTE | 2019-03-05 13:00 | SNU/HH DC ---
DISCHARGE ORDERS DISCHARGE INFORMATION: DISCHARGE DATE: Mar 05, 2019 FINAL DIAGNOSIS Problems Medical Problems: (1) Elevated brain natriuretic peptide (BNP) level Status: Acute (2) History of CVA (cerebrovascular accident) Status: Chronic (3) HTN (hypertension) Status: Chronic (4) Hyponatremia Status: Acute (5) Metabolic encephalopathy Status: Acute (6) Morbid obesity Status: Chronic (7) SIRS (systemic inflammatory response syndrome) Status: Acute CONDITION ON DISCHARGE: Stable CODE STATUS: Code Status: Full SNF: SNF STAY <30 DAYS: Yes HOSPICE: HOSPICE: No HOSPICE EVAL & TREAT: No LTAC: ADMIT TO LTAC: No POST DISCHARGE ORDERS: ACTIVITY ORDERS: Activity as tolerated WEIGHT BEARING STATUS: No restrictions DIET AFTER DISCHARGE: Cardiac WOUND/INCISION CARE: Ice to area for comfort, Reinforce dressing PRN CHECKS AFTER DISCHARGE: CHECKS AFTER DISCHARGE: Check blood press - daily, Check blood sugar, ac/hs, Check your Temp as needed FOLLOW-UP: PHYSICIAN FOLLOW-UP: pcp prn TREATMENT/EQUIPMENT ORDERS: ADAPTIVE EQUIPMENT NEEDED: None, Front wheeled walker Physical Therapy For: Evalulation/Treatment Occupational Therapy For: Evaluation/Treatment Speech Language Pathology For: Swallow Cognition DISCHARGE MEDICATIONS: Home Meds Active Scripts Tramadol Hcl (TRAMADOL HCL) 50 Mg Tablet, 50 MG PO PRN Q8HRS PRN for PAIN for 6 Days, #18 TAB Prov:FRANCINE MCCRARY MD 06/18/18 Reported Medications Cholecalciferol (Vitamin D3) (VITAMIN D3) 5,000 Unit Tablet, 59854 UNIT PO QTH for vit d deficiency, TAB 03/05/19 Neomycn/Baci Zn/Pmyx Bs/Pramox (TRIPLE ANTIBIOTIC PLUS OINTMNT) 28.4 Gm Oint...g., 1 [place]ACK[place] TP DAILY for wound healing, MISC 03/05/19 Trazodone Hcl (TRAZODONE HCL) 50 Mg Tablet, 50 MG PO HS for depression, TAB 03/05/19 Nystatin (NYSTATIN) 15 Gm Cream..g., 1 [place]ACK[place] TP PRN BID PRN for ITCHING, EACH 03/05/19 Mag Hydrox/Al Hydrox/Simeth (MAG-AL PLUS SUSPENSION) 30 Ml Oral.susp, 20 ML PO PRN Q6HRS PRN for HEARTBURN / GAS, MISC 03/05/19 Mirtazapine (MIRTAZAPINE) 15 Mg Tablet, 15 MG PO HS for insomnia, TAB 03/05/19 Magnesium Hydroxide (MILK OF MAGNESIA) 400 Mg/5 Ml Oral.susp, 30 ML PO PRN DAILY PRN for CONSTIPATION, MISC 03/05/19 Methyl Salicylate (Methyl Salicylate) 120 Gm Cream..g., 1 [place] TP PRN Q6HRS PRN for PAIN, EACH 03/05/19 Metformin Hcl (METFORMIN HCL ER) 500 Mg Tab.er.24h, 500 MG PO DAILY for dm, TAB 03/05/19 Duloxetine Hcl (CYMBALTA) 60 Mg Capsule.dr, 60 MG PO DAILY for depression, CAP 03/05/19 Aripiprazole (ABILIFY) 5 Mg Tablet, 2.5 MG PO DAILY for depression, TAB 03/05/19 Acetaminophen (ACETAMINOPHEN) 160 Mg/5 Ml Oral.susp, 2.5 ML PO PRN Q6HRS, #45 ML 02/11/18 Losartan Potassium (LOSARTAN POTASSIUM) 50 Mg Tablet, 50 MG PO DAILY, TAB 02/11/18 Gabapentin (GABAPENTIN ) 400 Mg Capsule, 400 MG PO QID, CAP 02/11/18 Apixaban (ELIQUIS) 5 Mg Tablet, 5 MG PO BID, TAB 02/11/18 Carvedilol (CARVEDILOL ) 6.25 Mg Tablet, 1 TAB PO BID, #180 TAB 1 Refill 02/11/18 Baclofen (BACLOFEN) 10 Mg Tablet, 1 TAB PO TID, #90 TAB 2 Refills 02/11/18 Atorvastatin Calcium (ATORVASTATIN CALCIUM) 40 Mg Tablet, 1 TAB PO QHS, #90 TAB 3 Refills 02/11/18 Aspirin (ASPIRIN) 81 Mg Tab.chew, 1 TAB PO DAILY, #30 TAB 3 Refills 02/11/18 Spironolactone (ALDACTONE) 25 Mg Tablet, 1 TAB PO DAILY, #90 TAB 1 Refill 02/11/18 Discontinued Reported Medications Quetiapine Fumarate (SEROQUEL) 25 Mg Tablet, 25 MG PO HS, TAB 02/11/18 Quetiapine Fumarate (SEROQUEL) 25 Mg Tablet, 12.5 MG PO DAILYWLUN for aggression\, TAB 02/11/18 Magnesium Oxide (MAGNESIUM OXIDE) 400 Mg Tablet, 1 TAB PO DAILY, #30 TAB 5 Refills 02/11/18 Citalopram Hydrobromide (CELEXA) 20 Mg Tablet, 30 MG PO DAILY, TAB 02/11/18 LIZ IVEY MD Mar 05, 2019 13:00
--- NOTE | 2019-03-05 13:04 | PDOC3 ---
Discharge Summary Visit Information Date of Admission: Mar 04, 2019 Date of Discharge: Mar 05, 2019 Admitting Diagnosis Comment: SIRS with no organ dysfunction Metabolic encephalopathy could be HO NK or meds induced - status post Narcan with no resolve Mild hyponatremia/pseudohyponat HONK diabetes type 2, blood sugar 467 BNP elevation 467 unknown clinical significance Morbid obese BMI 35 Superficial candidiasis intertriginous areas Allergies to penicillin hydrocodone influenza and virus vaccines History A. fib on OAC (eliquis) History of MRSA bacteremia History CVA, on OAC eliquis Hypertension on losartan other meds Final Diagnosis Problems Medical Problems: (1) Elevated brain natriuretic peptide (BNP) level Status: Acute (2) History of CVA (cerebrovascular accident) Status: Chronic (3) HTN (hypertension) Status: Chronic (4) Hyponatremia Status: Acute (5) Metabolic encephalopathy Status: Acute (6) Morbid obesity Status: Chronic (7) SIRS (systemic inflammatory response syndrome) Status: Acute Brief Hospital Course Allergies Allergies Coded Allergies Type Severity Reaction Last Updated Verified Influenza Virus Vaccines Allergy Intermediate 02/12/18 Yes Penicillins Allergy Intermediate 02/12/18 Yes hydrocodone Allergy Intermediate 02/12/18 Yes Vital Signs Vital Signs Date Time Temp Pulse Resp B/P (MAP) Pulse Ox O2 Delivery O2 Flow Rate FiO2 03/05/19 11:30 98.6 90 18 129/80 (96) 95 Room Air 98.6 Lab Results Laboratory Tests Test 03/04/19 15:10 03/04/19 16:54 03/04/19 17:35 03/04/19 19:31 White Blood Count 9.9 x10^3/uL (4.0-11.0) Red Blood Count 4.86 x10^6/uL (4.30-5.70) Hemoglobin 15.0 g/dL (13.0-17.5) Hematocrit 43.7 % (39.0-53.0) Mean Corpuscular Volume 90 fL (79-100) Mean Corpuscular Hemoglobin 31 pg (25-35) Mean Corpuscular Hemoglobin Concent 34 g/dL (31-37) Red Cell Distribution Width 13.9 % (11.5-14.5) Platelet Count 262 x10^3/uL (140-400) Neutrophils (%) (Auto) 71 % (31-73) Lymphocytes (%) (Auto) 19 % (24-48) Monocytes (%) (Auto) 7 % (0-9) Eosinophils (%) (Auto) 3 % (0-3) Basophils (%) (Auto) 1 % (0-3) Neutrophils # (Auto) 7.0 x10^3/uL (1.8-7.7) Lymphocytes # (Auto) 1.9 x10^3/uL (1.0-4.8) Monocytes # (Auto) 0.7 x10^3/uL (0.0-1.1) Eosinophils # (Auto) 0.2 x10^3/uL (0.0-0.7) Basophils # (Auto) 0.1 x10^3/uL (0.0-0.2) Prothrombin Time 14.9 SEC (11.7-14.0) Prothromb Time International Ratio 1.2 (0.8-1.1) Sodium Level 134 mmol/L (136-145) Potassium Level 4.5 mmol/L (3.5-5.1) Chloride Level 97 mmol/L (98-107) Carbon Dioxide Level 27 mmol/L (21-32) Anion Gap 10 (6-14) Blood Urea Nitrogen 19 mg/dL (8-26) Creatinine 1.1 mg/dL (0.7-1.3) Estimated GFR (Cockcroft-Gault) 68.5 BUN/Creatinine Ratio 17 (6-20) Glucose Level 467 mg/dL (70-99) Calcium Level 9.2 mg/dL (8.5-10.1) Magnesium Level 1.9 mg/dL (1.8-2.4) Total Bilirubin 0.7 mg/dL (0.2-1.0) Aspartate Amino Transf (AST/SGOT) 21 U/L (15-37) Alanine Aminotransferase (ALT/SGPT) 33 U/L (16-63) Alkaline Phosphatase 104 U/L (46-116) Troponin I Quantitative < 0.017 ng/mL (0.000-0.055) Total Protein 7.7 g/dL (6.4-8.2) Albumin 3.2 g/dL (3.4-5.0) Albumin/Globulin Ratio 0.7 (1.0-1.7) Glucose (Fingerstick) 455 mg/dL (70-99) 354 mg/dL (70-99) Urine Collection Type Unknown Urine Color Yellow Urine Clarity Clear Urine pH 6.5 Urine Specific [place] >=1.030 Urine Protein Negative mg/dL (NEG-TRACE) Urine Glucose (UA) >=1000 mg/dL (NEG) Urine Ketones (Stick) 15 mg/dL (NEG) Urine Blood Negative (NEG) Urine Nitrite Negative (NEG) Urine Bilirubin Negative (NEG) Urine Urobilinogen Dipstick 1.0 mg/dL (0.2 mg/dL) Urine Leukocyte Esterase Negative (NEG) Urine RBC 0 /HPF (0-2) Urine WBC 0 /HPF (0-4) Urine Bacteria Moderate /HPF (0-FEW) Lactic Acid Level 1.8 mmol/L (0.4-2.0) Urine Opiates Screen Neg (NEG) Urine Methadone Screen Neg (NEG) Urine Barbiturates Neg (NEG) Urine Phencyclidine Screen Neg (NEG) Urine Amphetamine/Methamphetamine Neg (NEG) Urine Benzodiazepines Screen Neg (NEG) Urine Cocaine Screen Neg (NEG) Urine Cannabinoids Screen Neg (NEG) Urine Ethyl Alcohol Neg (NEG) Test 03/05/19 09:23 03/05/19 11:54 Glucose (Fingerstick) 250 mg/dL (70-99) 241 mg/dL (70-99) Laboratory Tests Test 03/04/19 15:10 03/04/19 16:54 03/04/19 17:35 03/04/19 19:31 White Blood Count 9.9 x10^3/uL (4.0-11.0) Red Blood Count 4.86 x10^6/uL (4.30-5.70) Hemoglobin 15.0 g/dL (13.0-17.5) Hematocrit 43.7 % (39.0-53.0) Mean Corpuscular Volume 90 fL (79-100) Mean Corpuscular Hemoglobin 31 pg (25-35) Mean Corpuscular Hemoglobin Concent 34 g/dL (31-37) Red Cell Distribution Width 13.9 % (11.5-14.5) Platelet Count 262 x10^3/uL (140-400) Neutrophils (%) (Auto) 71 % (31-73) Lymphocytes (%) (Auto) 19 % (24-48) Monocytes (%) (Auto) 7 % (0-9) Eosinophils (%) (Auto) 3 % (0-3) Basophils (%) (Auto) 1 % (0-3) Neutrophils # (Auto) 7.0 x10^3/uL (1.8-7.7) Lymphocytes # (Auto) 1.9 x10^3/uL (1.0-4.8) Monocytes # (Auto) 0.7 x10^3/uL (0.0-1.1) Eosinophils # (Auto) 0.2 x10^3/uL (0.0-0.7) Basophils # (Auto) 0.1 x10^3/uL (0.0-0.2) Prothrombin Time 14.9 SEC (11.7-14.0) Prothromb Time International Ratio 1.2 (0.8-1.1) Sodium Level 134 mmol/L (136-145) Potassium Level 4.5 mmol/L (3.5-5.1) Chloride Level 97 mmol/L (98-107) Carbon Dioxide Level 27 mmol/L (21-32) Anion Gap 10 (6-14) Blood Urea Nitrogen 19 mg/dL (8-26) Creatinine 1.1 mg/dL (0.7-1.3) Estimated GFR (Cockcroft-Gault) 68.5 BUN/Creatinine Ratio 17 (6-20) Glucose Level 467 mg/dL (70-99) Calcium Level 9.2 mg/dL (8.5-10.1) Magnesium Level 1.9 mg/dL (1.8-2.4) Total Bilirubin 0.7 mg/dL (0.2-1.0) Aspartate Amino Transf (AST/SGOT) 21 U/L (15-37) Alanine Aminotransferase (ALT/SGPT) 33 U/L (16-63) Alkaline Phosphatase 104 U/L (46-116) Troponin I Quantitative < 0.017 ng/mL (0.000-0.055) Total Protein 7.7 g/dL (6.4-8.2) Albumin 3.2 g/dL (3.4-5.0) Albumin/Globulin Ratio 0.7 (1.0-1.7) Glucose (Fingerstick) 455 mg/dL (70-99) 354 mg/dL (70-99) Urine Collection Type Unknown Urine Color Yellow Urine Clarity Clear Urine pH 6.5 Urine Specific [place] >=1.030 Urine Protein Negative mg/dL (NEG-TRACE) Urine Glucose (UA) >=1000 mg/dL (NEG) Urine Ketones (Stick) 15 mg/dL (NEG) Urine Blood Negative (NEG) Urine Nitrite Negative (NEG) Urine Bilirubin Negative (NEG) Urine Urobilinogen Dipstick 1.0 mg/dL (0.2 mg/dL) Urine Leukocyte Esterase Negative (NEG) Urine RBC 0 /HPF (0-2) Urine WBC 0 /HPF (0-4) Urine Bacteria Moderate /HPF (0-FEW) Lactic Acid Level 1.8 mmol/L (0.4-2.0) Urine Opiates Screen Neg (NEG) Urine Methadone Screen Neg (NEG) Urine Barbiturates Neg (NEG) Urine Phencyclidine Screen Neg (NEG) Urine Amphetamine/Methamphetamine Neg (NEG) Urine Benzodiazepines Screen Neg (NEG) Urine Cocaine Screen Neg (NEG) Urine Cannabinoids Screen Neg (NEG) Urine Ethyl Alcohol Neg (NEG) Test 03/05/19 09:23 03/05/19 11:54 Glucose (Fingerstick) 250 mg/dL (70-99) 241 mg/dL (70-99) Brief Hospital Course Mr. Collins is a 58 old [sex] who presented with [ ] He is a resident of [facility] in [place], 58-year-old white male accompanied by no one brought in by EMS because of change in mental status at SNU. Usually very talkative but minimally verbal today. He has a ton of medical history including MRSA bacteremia, noncompliance, hypertension, CVA, A. fib on Eliquis, diabetes insulin requiring, atherosclerotic heart disease, maybe hypothyroidism, maybe obstructive sleep apnea undiagnosed, history of hypoxia hypercapnic respiratory failure. His BMI is 35. Did receive Narcan with no resolve of presentation. Blood sugar 457 with mild hyponatremia 134, chloride [address] head negative. Chest x-ray still pending. He is still still sleepy and drowsy to communicate with me. We will admit, hold off antibiotics for now (UA clean) but nystatin powder cream in between creases is fine. He has allergies to penicillin, influenza, hydrocodone but unknown reaction. I have reviewed all meds and continue to okay to continue everything using if he's awake enough to swallow pills but hold off any tramadol gabapentin or Celexa because of altered mental status Full code Further recs pending course I will involve palliativeif he is not improving but so far too early to tell HE is very "yeasty" on PE COURSE: Stayed Overnight and upon my rounding this morning, he is nasty, wide awake, cursing. Workup is negative for the cause of metabolic encephalopathy and he had no response to Narcan by EMS> BUt he was protecting airway Looking at home meds, polypharmacy with a lot of sedating meds including Cymbalta, tramadol, Neurontin, Abilify, etc see MAR We did not give this and now he is wide awake and hostile,. Could not help but wonder might be withdrawing or at least used to these meds so I would not want to stop all of it. Of course [facility] M.D[facility] and staff can taper this or not give it per nursing judgment if the patient too drowsy at SNU Otherwise no new home meds I needed to start Discharge Information Condition at Discharge: Improved, Stable Disposition/Orders: Other (snu) Scheduled Acetaminophen (Acetaminophen) 160 Mg/5 Ml Oral.susp, 2.5 ML PO PRN Q6HRS, #45 (Reported) Entered as Reported by: JASKARAN ALVARADO on 02/11/181547 Last Action: Converted on 03/04/191813 by LIZ IVEY Apixaban (Eliquis) 5 Mg Tablet, 5 MG PO BID, (Reported) Entered as Reported by: JASKARAN ALVARADO on 02/11/181547 Last Action: Reviewed on 03/05/19111 by LASHANDA MARTINEZ Aripiprazole (Abilify) 5 Mg Tablet, 2.5 MG PO DAILY for depression, (Reported) Entered as Reported by: LASHANDA MARTINEZ on 03/05/19111 Last Action: Continued on 03/05/19 1301 by LIZ IVEY Aspirin (Aspirin) 81 Mg Tab.chew, 1 TAB PO DAILY, #30 Ref 3 (Reported) Entered as Reported by: JASKARAN ALVARADO on 02/11/181547 Last Action: Reviewed on 03/05/19111 by LASHANDA MARTINEZ Atorvastatin Calcium (Atorvastatin Calcium) 40 Mg Tablet, 1 TAB PO QHS, #90 Ref 3 (Reported) Entered as Reported by: JASKARAN ALVARADO on 02/11/181547 Last Action: Reviewed on 03/05/19111 by LASHANDA MARTINEZ Baclofen (Baclofen) 10 Mg Tablet, 1 TAB PO TID, #90 Ref 2 (Reported) Entered as Reported by: JASKARAN ALVARADO on 02/11/181547 Last Action: Converted on 03/05/191300 by LIZ IVEY Carvedilol (Carvedilol ) 6.25 Mg Tablet, 1 TAB PO BID, #180 Ref 1 (Reported) Entered as Reported by: JASKARAN ALVARADO on 02/11/181547 Last Action: Reviewed on 03/05/19111 by LASHANDA MARTINEZ Cholecalciferol (Vitamin D3) (Vitamin D3) 5,000 Unit Tablet, 50,000 UNIT PO QTH for vit d deficiency, (Reported) Entered as Reported by: LASHANDA MARTINEZ on 03/05/19203 Last Action: Converted on 03/05/191300 by LIZ IVEY Duloxetine Hcl (Cymbalta) 60 Mg Capsule.dr, 60 MG PO DAILY for depression, (Reported) Entered as Reported by: LASHANDA MARTINEZ on 03/05/19111 Last Action: Converted on 03/05/191300 by LIZ IVEY Gabapentin (Gabapentin ) 400 Mg Capsule, 400 MG PO QID, (Reported) Entered as Reported by: JASKARAN ALVARADO on 02/11/181547 Last Action: Continued on 03/05/191300 by LIZ IVEY Losartan Potassium (Losartan Potassium) 50 Mg Tablet, 50 MG PO DAILY, (Reported) Entered as Reported by: JASKARAN ALVARADO on 02/11/181547 Last Action: Reviewed on 03/05/19111 by LASHANDA MARTINEZ Metformin Hcl (Metformin Hcl Er) 500 Mg Tab.er.24h, 500 MG PO DAILY for dm, (Re ported) Entered as Reported by: LASHANDA MARTINEZ on 03/05/19203 Last Action: Converted on 03/05/191300 by LIZ IVEY Mirtazapine (Mirtazapine) 15 Mg Tablet, 15 MG PO HS for insomnia, (Reported) Entered as Reported by: LASHANDA MARTINEZ on 03/05/19203 Last Action: Converted on 03/05/191300 by LIZ IVEY Neomycn/Baci Zn/Pmyx Bs/Pramox (Triple Antibiotic Plus Ointmnt) 28.4 Gm Oint...g., 1 [place]ACK[place] TP DAILY for wound healing, (Reported) Entered as Reported by: LASHANDA MARTINEZ on 03/05/19203 Last Action: New Order on 03/05/19203 by LASHANDA MARTINEZ Spironolactone (Aldactone) 25 Mg Tablet, 1 TAB PO DAILY, #90 Ref 1 (Reported) Entered as Reported by: JASKARAN ALVARADO on 02/11/18 1548 Last Action: Reviewed on 03/05/19203 by LASHANDA MARTINEZ Trazodone Hcl (Trazodone Hcl) 50 Mg Tablet, 50 MG PO HS for depression, (Reported) Entered as Reported by: LASHANDA MARTINEZ on 03/05/19203 Last Action: Converted on 03/05/191300 by LIZ IVEY Scheduled PRN Mag Hydrox/Al Hydrox/Simeth (Mag-Al Plus Suspension) 30 Ml Oral.susp, 20 ML PO PRN Q6HRS PRN for HEARTBURN / GAS, (Reported) Entered as Reported by: LASHANDA MARTINEZ on 03/05/19203 Last Action: Converted on 03/05/191300 by LIZ IVEY Magnesium Hydroxide (Milk Of Magnesia) 400 Mg/5 Ml Oral.susp, 30 ML PO PRN DAILY PRN for CONSTIPATION, (Reported) Entered as Reported by: LASHANDA MARTINEZ on 03/05/19203 Last Action: Continued on 03/05/191300 by LIZ IVEY Methyl Salicylate (Methyl Salicylate) 120 Gm Cream..g., 1 [place] TP PRN Q6HRS PRN for PAIN, (Reported) Entered as Reported by: LASHANDA MARTINEZ on 03/05/19203 Last Action: Converted on 03/05/191300 by LIZ IVEY Nystatin (Nystatin) 15 Gm Cream..g., 1 [place] TP PRN BID PRN for ITCHING, (Reported) Entered as Reported by: LASHANDA MARTINEZ on 03/05/19203 Last Action: Converted on 03/05/191300 by LIZ IVEY Tramadol Hcl (Tramadol Hcl) 50 Mg Tablet, 50 MG PO PRN Q8HRS PRN for PAIN for 6 Days, #18 Prescribed by: FRANCINE MCCRARY MD on 06/18/18 1235 Last Action: Converted on 03/05/19 1301 by LIZ IVEY Discontinued Medications Citalopram Hydrobromide (Celexa) 20 Mg Tablet, 30 MG PO DAILY, (Reported) Entered as Reported by: JASKARAN ALVARADO on 02/11/181547 Last Action: Discontinued on 03/05/19203 by LASHANDA MARTINEZ Magnesium Oxide (Magnesium Oxide) 400 Mg Tablet, 1 TAB PO DAILY, #30 Ref 5 (Reported) Entered as Reported by: JASKARAN ALVARADO on 02/11/181547 Last Action: Discontinued on 03/05/19203 by LASHANDA MARTINEZ Quetiapine Fumarate (Seroquel) 25 Mg Tablet, 12.5 MG PO DAILYWLUN for aggression\\, (Reported) Entered as Reported by: JASKARAN ALVARADO on 02/11/181547 Last Action: Discontinued on 03/05/19203 by LASHANDA MARTINEZ Quetiapine Fumarate (Seroquel) 25 Mg Tablet, 25 MG PO HS, (Reported) Entered as Reported by: JASKARAN ALVARADO on 02/11/181547 Last Action: Discontinued on 03/05/19203 by LIZ MONTEMAYOR MD Mar 05, 2019 13:04
[2019-03-05] MEDS ORDERED: traMADol 50 MG TABLET PO PRN (13:15)
[2019-03-05] MEDS ORDERED: METHYL SALICYLATE/MENTHOL TOPICAL OINTMENT 29GM TUBE. TP PRN (13:15)
[2019-03-05] MEDS ORDERED: MAG HYDROX/ALUMINUM HYD/SIMETH 30 ML ORAL.SUSP PO PRN (13:15)
--- NOTE | 2019-03-05 13:47 | NUR ---
SW following pt for dc planning. Chart reviewed and discussed with RN. Pt is LTC resident at [facility], phone: [phone], fax; [phone]. Clinicals and orders faxed. Pt will transport via facility arranged w/c van in the next 20min. RN and pt's brother, Ed, notified.
[2019-03-05] MEDS ORDERED: CYCLOBENZAPRINE 10 MG TABLET. PO SCH (14:00)
--- NOTE | 2019-03-05 14:16 | NUR ---
Discharge Note: MEL OSORIO [facility] Discharge instructions and discharge home medications reviewed with Other facility and a copy given. All questions have been answered and understanding verbalized. The following instructions and handouts were given: Nursing report given to EPIFANIO Garibay reguarding medication,diet,activity changes. Discontinued lines and drains: 20g l hand and 18 g l wrist removed with tip intact. Patient discharged to [facility]. Facility transport drove patient from [facility] facility.
--- NOTE | 2019-03-05 14:25 | NUR ---
Wound Care Attempted to see pt for wound consultation, pt has already been discharged.
--- NOTE | 2019-03-05 15:26 | PDOC2 ---
NEUROLOGY CONSULT Date of Admission Date of Admission DATE: 03/05/19 TIME: 15:07 Reason for Consult Reason for Consult: IMPRESSION: Metabolic encephalopathy. Hyperglycemia, glucose 467. DM. HTN. HLD. Afib. 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 Obesity. RECOMMENDATIONS/PLAN: Continue Eliquis 5 mg bid. Continue ASA 81 mg daily. Continue Lipitor 40 mg HS. Control hyperglycemia. Treat medical diseases. Repeat HCT. Lab: see orders. OT/PT. HISTORY OF THE PRESENT ILLNESS: This is a 58-year-old male patient who is a resident of [facility] [place] with above medical diseases and previous stroke with chronic expressive aphasia and right side hemiplegia was found to have mental status changes on 03/04/19 to be brought to the ER of [facility]. He was eventually hospitalized for further evaluation. No new focalized motor deficits noted. His initially HCT showed no acute findings but old left encephalopathy. His glucose level was revealed 467. Past Medical History Cardiovascular: AFIB, CAD, CHF, HTN CENTRAL NERVOUS SYSTEM: CVA Psych: Depression Infectious disease: Other Endocrine: Diabetes Past Surgical History No major surgery recently. Family History Hypertension, Family History Unknown Allergies Coded Allergies: Influenza Virus Vaccines (Verified Allergy, Intermediate, 02/12/18) Penicillins (Verified Allergy, Intermediate, 02/12/18) hydrocodone (Verified Allergy, Intermediate, 02/12/18) MEDICATIONS: Refer to [facility] SOCIAL HISTORY: Lives in [facility]pc. Denies current smoking, drinking, and illicit drug use. REVIEW OF SYSTEMS: Constitutional: Obesity.. Head: No traumatic brain or head injury. Skin: No edema, or rash. Ear: No infection. Eyes: No vision loss or color blindness. Nose: No bleeding or purulent discharges. Hearing: Hearing decrease. Neck: No injury. Cardiac: AFib, HTN, HLD. Pulmonary: No COPD. GI: No GI ulcer, GI bleeding. Urinary/genital: No UTI. Endocrinologic: Diabetes Mellitus, obesity. Skeletomuscular: Chronic right side hemiplegia. Neurological: see HP. Psychiatric: Denies drug use/abuse. Otherwise, not [id number] review of systems. PHYSICAL EXAMINATION: General appearance is drowsiness. HEENT: Normocephalic and nontraumatic. Eyes, nose, ears, and throat are unremarkable. Neck is supple. No lymphadenopathy. No crepitus. Cardiovascular: S1, S2. Pulmonary: Clear to auscultation bilaterally. Abdomen: Bowel sounds are positive. Abdomen is soft, nontender, and nondistended. Extremities: No rash, lesions, or edema. No restriction of range of motion NEUROLOGICAL EXAMINATION: Drowsiness. Able to speak some words. Not sure if he was oriented to time, place and person. PERRL. EOMI. CN: chronic right VII palsy, mild. Muscle tone: Increased in right UE and LE. Muscle strength: 3-4 right side. % left side. DTR: 1-2 Plantar reflex: Extensor response right side. Gait: not examined in bed. Sensory exam: no acute abnormal findings. No acute cerebellar signs elicited. F-T-N test not performed due to not follow commands. Current Medications Current Medications Current Medications Insulin Human Regular (HumuLIN R VIAL) 20 unit 1X ONCE SQ Last administered on 03/04/19at 18:29; Start 03/04/19 at 18:15; Stop 03/04/19 at 18:16; Status DC Ondansetron HCl (Zofran) 4 mg PRN Q8HRS PRN IV NAUSEA/VOMITING; Start 03/04/19 at 17:45; Stop 03/04/19 at 18:15; Status DC Sodium Chloride 1,000 ml @ 125 mls/hr Q8H IV Last administered on 03/05/19at 03:15; Start 03/04/19 at 17:38; Stop 03/05/19 at 14:29; Status DC Insulin Human Lispro (HumaLOG) 0-9 UNITS TIDWMEALS SQ Last administered on 03/05/19at 09:39; Start 03/05/19 at 08:00; Stop 03/05/19 at 14:29; Status DC Dextrose (Dextrose 50%-Water Syringe) 12.5 gm PRN Q15MIN PRN IV SEE COMMENTS; Start 03/04/19 at 17:45; Stop 03/05/19 at 14:29; Status DC Ondansetron HCl (Zofran) 4 mg PRN Q6HRS PRN IV NAUSEA/VOMITING; Start 03/04/19 at 18:15; Stop 03/05/19 at 14:29; Status DC Nystatin (Nystop) 1 rafa BID TP Last administered on 03/05/19at 09:00; Start 03/04/19 at 21:00; Stop 03/05/19 at 14:29; Status DC Acetaminophen (Tylenol) 500 mg PRN Q6HRS PRN PO MILD PAIN / TEMP; Start 03/04/19 at 18:15; Stop 03/05/19 at 14:29; Status DC Apixaban (Eliquis) 5 mg BID PO ; Start 03/04/19 at 21:00; Stop 03/05/19 at 14:29; Status DC Aspirin (Children'S Aspirin) 81 mg DAILY PO ; Start 03/05/19 at 09:00; Stop 03/05/19 at 14:29; Status DC Atorvastatin Calcium (Lipitor) 40 mg QHS PO ; Start 03/04/19 at 21:00; Stop 03/05/19 at 14:29; Status DC Carvedilol (Coreg) 6.25 mg BIDWMEALS PO ; Start 03/05/19 at 08:00; Stop 03/05/19 at 14:29; Status DC Losartan Potassium (Cozaar) 50 mg DAILY PO ; Start 03/05/19 at 09:00; Stop 03/05/19 at 14:29; Status DC Non-Formulary Medication (Acetaminophen ) 2.5 ml PRN Q6HRS PO ; Start 03/04/19 at 18:15; Status UNV Magnesium Oxide (Magnesium Oxide) 400 mg DAILY PO ; Start 03/05/19 at 09:00; Stop 03/05/19 at 14:29; Status DC Spironolactone (Aldactone) 25 mg DAILY PO ; Start 03/05/19 at 09:00; Stop 03/05/19 at 14:29; Status DC Insulin Glargine (Lantus) 25 units QHS SQ Last administered on 03/04/19at 20:52; Start 03/04/19 at 21:00; Stop 03/05/19 at 09:49; Status DC Insulin Glargine (Lantus) 30 units QHS SQ ; Start 03/05/19 at 21:00; Stop 02/05 08/24 at 21:00; Status DC Insulin Human Lispro (HumaLOG) 10 units TIDWMEALS SQ ; Start 03/05/19 at 12:00; Stop 03/05/19 at 14:29; Status DC Info (Anti-Coagulation Monitoring By Pharmacy) 1 each PRN DAILY PRN MC SEE COMMENTS; Start 03/05/19 at 10:00; Stop 03/05/19 at 14:29; Status DC Aripiprazole (Abilify) 2.5 mg DAILY PO ; Start 03/06/19 at 09:00; Stop 03/06/19 at 09:00; Status DC Gabapentin (Neurontin) 400 mg QID PO ; Start 03/05/19 at 13:00; Stop 03/05/19 at 14:29; Status DC Magnesium Hydroxide (Milk Of Magnesia) 2,400 mg PRN DAILY PRN PO CONSTIPATION 1st choice; Start 03/05/19 at 13:00; Stop 03/05/19 at 14:29; Status DC Cyclobenzaprine HCl (Flexeril) 10 mg TID PO ; Start 03/05/19 at 14:00; Stop 03/05/19 at 14:29; Status DC Ergocalciferol (Vitamin D2) 50,000 unit WEEKLY PO ; Start 03/13/19 at 09:00; Stop 03/13/19 at 09:00; Status DC Duloxetine HCl (Cymbalta) 60 mg DAILY PO ; Start 03/06/19 at 09:00; Stop 03/06/19 at 09:00; Status DC Al Hydroxide/Mg Hydroxide (Mylanta Plus Xs) 30 ml PRN Q2HR PRN PO HEARTBURN / GAS; Start 03/05/19 at 13:15; Stop 03/05/19 at 14:29; Status DC Metformin HCl (Glucophage Xr) 500 mg DAILYWBKFT PO ; Start 03/06/19 at 08:00; Stop 03/06/19 at 08:00; Status DC Multi-Ingredient Ointment (Analgesic [place]) 1 rafa PRN QID PRN TP MUSCLE PAIN; Start 03/05/19 at 13:15; Stop 03/05/19 at 14:29; Status DC Mirtazapine (Remeron) 15 mg QHS PO ; Start 03/05/19 at 21:00; Stop 03/05/19 at 21:00; Status DC Nystatin (Mycostatin) 1 rafa PRN BID PRN TP FUNGAL INFECTION; Start 03/05/19 at 21:00; Stop 03/05/19 at 21:00; Status DC Tramadol HCl (Ultram) 50 mg PRN Q8HRS PRN PO MODERATE PAIN 4-6; Start 03/05/19 at 13:15; Stop 03/05/19 at 14:29; Status DC Trazodone HCl (Desyrel) 50 mg QHS PO ; Start 03/05/19 at 21:00; Stop 03/05/19 at 21:00; Status DC Active Scripts Active Tramadol Hcl 50 Mg Tablet 50 Mg PO PRN Q8HRS PRN 6 Days Reported Vitamin D3 (Cholecalciferol (Vitamin D3)) 5,000 Unit Tablet 50,000 Unit PO QTH Triple Antibiotic Plus Ointmnt (Neomycn/Baci Zn/Pmyx Bs/Pramox) 28.4 Gm Oint...g. 1 Rafa TP DAILY Trazodone Hcl 50 Mg Tablet 50 Mg PO HS Nystatin 15 Gm Cream..g. 1 Rafa TP PRN BID PRN Mag-Al Plus Suspension (Mag Hydrox/Al Hydrox/Simeth) 30 Ml Oral.susp 20 Ml PO PRN Q6HRS PRN Mirtazapine 15 Mg Tablet 15 Mg PO HS Milk Of Magnesia (Magnesium Hydroxide) 400 Mg/5 Ml Oral.susp 30 Ml PO PRN DAILY PRN Methyl Salicylate 120 Gm Cream..g. 1 Rafa TP PRN Q6HRS PRN Metformin Hcl Er (Metformin Hcl) 500 Mg Tab.er.24h 500 Mg PO DAILY Cymbalta (Duloxetine Hcl) 60 Mg Capsule.dr 60 Mg PO DAILY Abilify (Aripiprazole) 5 Mg Tablet 2.5 Mg PO DAILY Acetaminophen 160 Mg/5 Ml Oral.susp 2.5 Ml PO PRN Q6HRS Losartan Potassium 50 Mg Tablet 50 Mg PO DAILY Gabapentin (Gabapentin) 400 Mg Capsule 400 Mg PO QID Eliquis (Apixaban) 5 Mg Tablet 5 Mg PO BID Carvedilol (Carvedilol) 6.25 Mg Tablet 1 Tab PO BID Baclofen 10 Mg Tablet 1 Tab PO TID Atorvastatin Calcium 40 Mg Tablet 1 Tab PO QHS Aspirin 81 Mg Tab.chew 1 Tab PO DAILY Aldactone (Spironolactone) 25 Mg Tablet 1 Tab PO DAILY Allergies Allergies: Allergies Coded Allergies Type Severity Reaction Last Updated Verified Influenza Virus Vaccines Allergy Intermediate 02/12/18 Yes Penicillins Allergy Intermediate 02/12/18 Yes hydrocodone Allergy Intermediate 02/12/18 Yes ROS Review of System The patient denies any associated fevers, chills, headache, ear pain, rhinorrhea, sore throat, stiff neck, productive cough, chest pain, shortness of breath, back or flank pain, abdominal pain, nausea, vomiting, diarrhea, constipation, dysuria, rash, numbness, weakness, tingling, incontinence, difficulty ambulating, or diaphoresis. Physical Exam Physical Exam General: Well developed, well nourished, no acute distress, well appearing HEENT: Pupils equally round and reactive to light, EOMI, no discharge, normal conjunctiva Neck: Supple, no nuchal rigidity, no JVD, trachea midline, no tenderness Cardiac: RRR, no murmurs, no gallops, no rubs Chest/Lungs: CTAB, no wheeze, no rhonchi, no crackles Abdomen: soft, non-distended, no guarding, no peritoneal signs, non-tender Back: No tenderness Extremities: no edema, pulses intact, non-tender,capillary refill <3 sec velvet ateral upper and lower extremities, Neuro: Alert and oriented x 4, no focal deficits, normal speech Vitals Vitals: Vital Signs Date Time Temp Pulse Resp B/P (MAP) Pulse Ox O2 Delivery O2 Flow Rate FiO2 03/05/19 11:30 98.6 90 18 129/80 (96) 95 Room Air 98.6 Labs Labs Laboratory Tests Test 03/04/19 15:10 03/04/19 16:54 03/04/19 17:35 03/04/19 19:31 White Blood Count 9.9 x10^3/uL (4.0-11.0) Red Blood Count 4.86 x10^6/uL (4.30-5.70) Hemoglobin 15.0 g/dL (13.0-17.5) Hematocrit 43.7 % (39.0-53.0) Mean Corpuscular Volume 90 fL (79-100) Mean Corpuscular Hemoglobin 31 pg (25-35) Mean Corpuscular Hemoglobin Concent 34 g/dL (31-37) Red Cell Distribution Width 13.9 % (11.5-14.5) Platelet Count 262 x10^3/uL (140-400) Neutrophils (%) (Auto) 71 % (31-73) Lymphocytes (%) (Auto) 19 % (24-48) Monocytes (%) (Auto) 7 % (0-9) Eosinophils (%) (Auto) 3 % (0-3) Basophils (%) (Auto) 1 % (0-3) Neutrophils # (Auto) 7.0 x10^3/uL (1.8-7.7) Lymphocytes # (Auto) 1.9 x10^3/uL (1.0-4.8) Monocytes # (Auto) 0.7 x10^3/uL (0.0-1.1) Eosinophils # (Auto) 0.2 x10^3/uL (0.0-0.7) Basophils # (Auto) 0.1 x10^3/uL (0.0-0.2) Prothrombin Time 14.9 SEC (11.7-14.0) Prothromb Time International Ratio 1.2 (0.8-1.1) Sodium Level 134 mmol/L (136-145) Potassium Level 4.5 mmol/L (3.5-5.1) Chloride Level 97 mmol/L (98-107) Carbon Dioxide Level 27 mmol/L (21-32) Anion Gap 10 (6-14) Blood Urea Nitrogen 19 mg/dL (8-26) Creatinine 1.1 mg/dL (0.7-1.3) Estimated GFR (Cockcroft-Gault) 68.5 BUN/Creatinine Ratio 17 (6-20) Glucose Level 467 mg/dL (70-99) Calcium Level 9.2 mg/dL (8.5-10.1) Magnesium Level 1.9 mg/dL (1.8-2.4) Total Bilirubin 0.7 mg/dL (0.2-1.0) Aspartate Amino Transf (AST/SGOT) 21 U/L (15-37) Alanine Aminotransferase (ALT/SGPT) 33 U/L (16-63) Alkaline Phosphatase 104 U/L (46-116) Troponin I Quantitative < 0.017 ng/mL (0.000-0.055) Total Protein 7.7 g/dL (6.4-8.2) Albumin 3.2 g/dL (3.4-5.0) Albumin/Globulin Ratio 0.7 (1.0-1.7) Glucose (Fingerstick) 455 mg/dL (70-99) 354 mg/dL (70-99) Urine Collection Type Unknown Urine Color Yellow Urine Clarity Clear Urine pH 6.5 Urine Specific [place] >=1.030 Urine Protein Negative mg/dL (NEG-TRACE) Urine Glucose (UA) >=1000 mg/dL (NEG) Urine Ketones (Stick) 15 mg/dL (NEG) Urine Blood Negative (NEG) Urine Nitrite Negative (NEG) Urine Bilirubin Negative (NEG) Urine Urobilinogen Dipstick 1.0 mg/dL (0.2 mg/dL) Urine Leukocyte Esterase Negative (NEG) Urine RBC 0 /HPF (0-2) Urine WBC 0 /HPF (0-4) Urine Bacteria Moderate /HPF (0-FEW) Lactic Acid Level 1.8 mmol/L (0.4-2.0) Urine Opiates Screen Neg (NEG) Urine Methadone Screen Neg (NEG) Urine Barbiturates Neg (NEG) Urine Phencyclidine Screen Neg (NEG) Urine Amphetamine/Methamphetamine Neg (NEG) Urine Benzodiazepines Screen Neg (NEG) Urine Cocaine Screen Neg (NEG) Urine Cannabinoids Screen Neg (NEG) Urine Ethyl Alcohol Neg (NEG) Test 03/04/19 23:20 03/05/19 09:23 03/05/19 11:54 Nasal Screen MRSA (PCR) Negative (Negative) Glucose (Fingerstick) 250 mg/dL (70-99) 241 mg/dL (70-99) Laboratory Tests Test 03/04/19 15:10 03/04/19 16:54 03/04/19 17:35 03/04/19 19:31 White Blood Count 9.9 x10^3/uL (4.0-11.0) Red Blood Count 4.86 x10^6/uL (4.30-5.70) Hemoglobin 15.0 g/dL (13.0-17.5) Hematocrit 43.7 % (39.0-53.0) Mean Corpuscular Volume 90 fL (79-100) Mean Corpuscular Hemoglobin 31 pg (25-35) Mean Corpuscular Hemoglobin Concent 34 g/dL (31-37) Red Cell Distribution Width 13.9 % (11.5-14.5) Platelet Count 262 x10^3/uL (140-400) Neutrophils (%) (Auto) 71 % (31-73) Lymphocytes (%) (Auto) 19 % (24-48) Monocytes (%) (Auto) 7 % (0-9) Eosinophils (%) (Auto) 3 % (0-3) Basophils (%) (Auto) 1 % (0-3) Neutrophils # (Auto) 7.0 x10^3/uL (1.8-7.7) Lymphocytes # (Auto) 1.9 x10^3/uL (1.0-4.8) Monocytes # (Auto) 0.7 x10^3/uL (0.0-1.1) Eosinophils # (Auto) 0.2 x10^3/uL (0.0-0.7) Basophils # (Auto) 0.1 x10^3/uL (0.0-0.2) Prothrombin Time 14.9 SEC (11.7-14.0) Prothromb Time International Ratio 1.2 (0.8-1.1) Sodium Level 134 mmol/L (136-145) Potassium Level 4.5 mmol/L (3.5-5.1) Chloride Level 97 mmol/L (98-107) Carbon Dioxide Level 27 mmol/L (21-32) Anion Gap 10 (6-14) Blood Urea Nitrogen 19 mg/dL (8-26) Creatinine 1.1 mg/dL (0.7-1.3) Estimated GFR (Cockcroft-Gault) 68.5 BUN/Creatinine Ratio 17 (6-20) Glucose Level 467 mg/dL (70-99) Calcium Level 9.2 mg/dL (8.5-10.1) Magnesium Level 1.9 mg/dL (1.8-2.4) Total Bilirubin 0.7 mg/dL (0.2-1.0) Aspartate Amino Transf (AST/SGOT) 21 U/L (15-37) Alanine Aminotransferase (ALT/SGPT) 33 U/L (16-63) Alkaline Phosphatase 104 U/L (46-116) Troponin I Quantitative < 0.017 ng/mL (0.000-0.055) Total Protein 7.7 g/dL (6.4-8.2) Albumin 3.2 g/dL (3.4-5.0) Albumin/Globulin Ratio 0.7 (1.0-1.7) Glucose (Fingerstick) 455 mg/dL (70-99) 354 mg/dL (70-99) Urine Collection Type Unknown Urine Color Yellow Urine Clarity Clear Urine pH 6.5 Urine Specific [place] >=1.030 Urine Protein Negative mg/dL (NEG-TRACE) Urine Glucose (UA) >=1000 mg/dL (NEG) Urine Ketones (Stick) 15 mg/dL (NEG) Urine Blood Negative (NEG) Urine Nitrite Negative (NEG) Urine Bilirubin Negative (NEG) Urine Urobilinogen Dipstick 1.0 mg/dL (0.2 mg/dL) Urine Leukocyte Esterase Negative (NEG) Urine RBC 0 /HPF (0-2) Urine WBC 0 /HPF (0-4) Urine Bacteria Moderate /HPF (0-FEW) Lactic Acid Level 1.8 mmol/L (0.4-2.0) Urine Opiates Screen Neg (NEG) Urine Methadone Screen Neg (NEG) Urine Barbiturates Neg (NEG) Urine Phencyclidine Screen Neg (NEG) Urine Amphetamine/Methamphetamine Neg (NEG) Urine Benzodiazepines Screen Neg (NEG) Urine Cocaine Screen Neg (NEG) Urine Cannabinoids Screen Neg (NEG) Urine Ethyl Alcohol Neg (NEG) Test 03/04/19 23:20 03/05/19 09:23 03/05/19 11:54 Nasal Screen MRSA (PCR) Negative (Negative) Glucose (Fingerstick) 250 mg/dL (70-99) 241 mg/dL (70-99) LEANNA MADRIGAL MD Mar 05, 2019 15:26
[2019-03-05] MEDS ORDERED: MIRTAZAPINE 15 MG TABLET PO SCH (21:00)
[2019-03-05] MEDS ORDERED: INSULIN GLARGINE 300 UNITS/3 ML INSULN.PEN. SQ SCH (21:00)
[2019-03-05] MEDS ORDERED: NYSTATIN 100,000 UNIT/GM TOPICAL CREAM 15GM TUBE. TP PRN (21:00)
[2019-03-05] MEDS ORDERED: traZODone 50 MG TABLET. PO SCH (21:00)
[2019-03-06] MEDS ORDERED: metFORMIN XR 500 MG TAB.ER.24H PO SCH (08:00)
[2019-03-06] MEDS ORDERED: DULoxetine HCL 30 MG CAPSULE.DR PO SCH (09:00)
[2019-03-06] MEDS ORDERED: ARIPiprazole 5 MG TABLET PO SCH (09:00)
[2019-03-13] MEDS ORDERED: ERGOCALCIFEROL (VITAMIN D2) 50,000 UNIT CAPSULE. PO SCH (09:00)
== END 2019-03-05 14:29 | disposition home or self-care (01) | DRG 637 ==
LOC: ER 16:47 → 6 SOUTH 17:38
PROVIDERS: ADMIT Internal Medicine; ATTEND Internal Medicine
DX: E11.00 Type 2 diabetes mellitus with hyperosmolarity without nonketotic hyperglycemic-hyperosmolar coma (NKHHC) (principal); G93.41 Metabolic encephalopathy; E87.1 Hypo-osmolality and hyponatremia; G81.91 Hemiplegia, unspecified affecting right dominant side; R47.01 Aphasia; R65.10 Systemic inflammatory response syndrome (SIRS) of non-infectious origin without acute organ dysfunction; B37.2 Candidiasis of skin and nail; E66.01 Morbid (severe) obesity due to excess calories; E78.00 Pure hypercholesterolemia, unspecified; E78.5 Hyperlipidemia, unspecified; F32.9 Major depressive disorder, single episode, unspecified; G47.00 Insomnia, unspecified; T50.7X5A Adverse effect of analeptics and opioid receptor antagonists, initial encounter; G93.89 Other specified disorders of brain; I11.0 Hypertensive heart disease with heart failure; I25.10 Atherosclerotic heart disease of native coronary artery without angina pectoris; I48.91 Unspecified atrial fibrillation; I50.9 Heart failure, unspecified; Z79.01 Long term (current) use of anticoagulants; Z68.35 Body mass index [BMI] 35.0-35.9, adult; Z79.82 Long term (current) use of aspirin; Z79.84 Long term (current) use of oral hypoglycemic drugs; Z79.899 Other long term (current) drug therapy; Z86.14 Personal history of Methicillin resistant Staphylococcus aureus infection; Z86.73 Personal history of transient ischemic attack (TIA), and cerebral infarction without residual deficits; Z91.19 Patient's noncompliance with other medical treatment and regimen; Z88.0 Allergy status to penicillin; Z88.7 Allergy status to serum and vaccine; Z88.8 Allergy status to other drugs, medicaments and biological substances; Z79.4 Long term (current) use of insulin; Y92.89 Other specified places as the place of occurrence of the external cause
CPT/HCPCS: 36415; 70450; 71045; 80053; 80307; 81001; 82962; 83605; 83735; 84484; 85025; 85610; 87040; 87086; 87641; 93005; 96372; J1815; J7030; 92610; 99285-25

== ENCOUNTER 2020-11-27 15:00 | Inpatient (IN) | payer MEDICARE, OTHER ==
[~2020-11-27] VITALS: Ht 172.7 cm; Wt 122.5 kg
[~2020-11-27 15:00] MED LIST changes: +ARIP5TAB13 PO; +CHOL500016 PO; +DULO60CA6 PO; +MAG30ORA PO; +MAGN400O7 PO; -MAGN400T3 PO; +MAGN400T5 PO; +METF-658 PO; +METH120C4 TP; +MIRT-7 PO; +NEOM28.43 TP; +NYST15CR TP; +TRAZ-118 PO
[2020-11-27 15:39] LABS: BASO # 0.1 x10^3/uL (0.0-0.2); BASO % 1 % (0-3); EOS # 0.4 x10^3/uL (0.0-0.7); EOS % 3 % (0-3); HEMATOCRIT 42.3 % (39.0-53.0); HEMOGLOBIN 13.9 g/dL (13.0-17.5); LYMPH # 1.7 x10^3/uL (1.0-4.8); LYMPH % 13 % (24-48); MEAN CORPUSCULAR HEMOGLOBIN 27 pg (25-35); MEAN CORPUSCULAR HGB CONC 33 g/dL (31-37); MEAN CORPUSCULAR VOLUME 83 fL (79-100); MONO # 0.8 x10^3/uL (0.0-1.1); MONO % 6 % (0-9); NEUT # 10.2 x10^3/uL (1.8-7.7); NEUT % 77 % (31-73); PLATELET COUNT 371 x10^3/uL (140-400); RED CELL DISTRIBUTION WIDTH 16.2 % (11.5-14.5); WHITE BLOOD COUNT 13.3 x10^3/uL (4.0-11.0)
[2020-11-27 15:53] LABS: CALCIUM 9.4 mg/dL (8.5-10.1); CREATININE 1.3 mg/dL (0.7-1.3); GFR 56.1; POTASSIUM 4.3 mmol/L (3.5-5.1)
--- NOTE | 2020-11-27 15:58 | RAD ---
EXAM: CHEST ONE VIEW. HISTORY: Chest pain. COMPARISON: 03/04/2019. FINDINGS: A frontal view of the chest is obtained. There are no confluent infiltrates. There is no pneumothorax or clear pleural effusion. Blunting of t he left costophrenic angle is most likely secondary to an epicardial fat pad. The heart is moderately enlarged. There are atherosclerotic calcifications of the aorta. IMPRESSION: 1. Moderate cardiomegaly. Electronically signed by: Claudia Ventura MD (11/27/2020 3:56 PM) [facility]
[2020-11-27 16:00] LABS: ALBUMIN 3.1 g/dL (3.4-5.0); ALBUMIN/GLOBULIN RATIO 0.7 (1.0-1.7); MAGNESIUM 1.9 mg/dL (1.8-2.4); TOTAL BILIRUBIN 0.5 mg/dL (0.2-1.0); TOTAL PROTEIN 7.6 g/dL (6.4-8.2)
--- NOTE | 2020-11-27 17:10 | PHYS DOC ---
Past Medical History Past Medical History: A-Fib, Constipation, Dementia, Depression, Diabetes-Type II, GERD, High Cholesterol, Heart Disease, Hypertension, Stroke Additional Past Medical Histor: rt side deficit, aphasia (FRANCHESCA HERNANDEZ MD) Past Surgical History: Other Additional Past Surgical Histo: unknown (FRANCHESCA HERNANDEZ MD) Smoking Status: Former Smoker Alcohol Use: None Drug Use: None (FARNCHESCA HERNANDEZ MD) Adult General Chief Complaint Chief Complaint: ALTERED MENTAL STATUS HPI HPI Patient is a 60 year old male with a past medical history including hypertension, diabetes, hyperlipidemia, dementia, prior CVA, A. fib now presents emergency department due to concern for altered mental status. According to r vivian from the senior living patient was acting altered and not like himself today. They state that the patient oxygen saturation dropped to approximately 81%. The patient is unable any history is currently denying any complaints but does appear to be uncomfortable. (FRANCHESCA HERNANDEZ MD) Review of Systems Review of Systems Constitutional: Denies fever or chills [] Eyes: Denies change in visual acuity, redness, or eye pain [] HENT: Denies nasal congestion or sore throat [] Respiratory: Denies cough or shortness of breath [] Cardiovascular: No additional information not addressed in HPI [] GI: Denies abdominal pain, nausea, vomiting, bloody stools or diarrhea [] : Denies dysuria or hematuria [] Musculoskeletal: Denies back pain or joint pain [] Integument: Denies rash or skin lesions [] Neurologic: Denies headache, focal weakness or sensory changes [] Endocrine: Denies polyuria or polydipsia [] All other systems were reviewed and found to be within normal limits, except as documented in this note. (FRANCHESCA HERNANDEZ MD) Allergies Allergies Allergies Coded Allergies Type Severity Reaction Last Updated Verified Influenza Virus Vaccines Allergy Intermediate 02/12/18 Yes Penicillins Allergy Intermediate 02/12/18 Yes hydrocodone Allergy Intermediate 02/12/18 Yes [facility] Physical Exam Physical Exam Constitutional: Well developed, well nourished, no acute distress, non-toxic appearance. [] HENT: Normocephalic, atraumatic, bilateral external ears normal, oropharynx moist, no oral exudates, nose normal. [] Eyes: PERRLA, EOMI, conjunctiva normal, no discharge. [] Neck: Normal range of motion, no tenderness, supple, no stridor. [] Cardiovascular:Heart rate regular rhythm, no murmur [] Lungs & Thorax: Bilateral breath sounds clear to auscultation [] Abdomen: Bowel sounds normal, soft, no tenderness, no masses, no pulsatile masses. [] Skin: Warm, dry, no erythema, no rash. [] Back: No tenderness, no CVA tenderness. [] Extremities: No tenderness, no cyanosis, no clubbing, ROM intact, no edema. [] Neurologic: Alert and oriented X 3, normal motor function, normal sensory function, no focal deficits noted. [] Psychologic: Affect normal, judgement normal, mood normal. [] (FRANCHESCA HERNANDEZ MD) Current Patient Data Vital Signs Vital Signs Date Time Temp Pulse Resp B/P (MAP) Pulse Ox O2 Delivery O2 Flow Rate FiO2 11/27/20 21:57 92 18 99/70 (80) 96 Nasal Cannula 2.0 11/27/20 15:00 98.4 98.4 ([facility]) Lab Values Laboratory Tests Test 11/27/20 15:25 11/27/20 21:10 White Blood Count 13.3 x10^3/uL (4.0-11.0) H Red Blood Count 5.10 x10^6/uL (4.30-5.70) Hemoglobin 13.9 g/dL (13.0-17.5) Hematocrit 42.3 % (39.0-53.0) Mean Corpuscular Volume 83 fL (79-100) Mean Corpuscular Hemoglobin 27 pg (25-35) Mean Corpuscular Hemoglobin Concent 33 g/dL (31-37) Red Cell Distribution Width 16.2 % (11.5-14.5) H Platelet Count 371 x10^3/uL (140-400) Neutrophils (%) (Auto) 77 % (31-73) H Lymphocytes (%) (Auto) 13 % (24-48) L Monocytes (%) (Auto) 6 % (0-9) Eosinophils (%) (Auto) 3 % (0-3) Basophils (%) (Auto) 1 % (0-3) Neutrophils # (Auto) 10.2 x10^3/uL (1.8-7.7) H Lymphocytes # (Auto) 1.7 x10^3/uL (1.0-4.8) Monocytes # (Auto) 0.8 x10^3/uL (0.0-1.1) Eosinophils # (Auto) 0.4 x10^3/uL (0.0-0.7) Basophils # (Auto) 0.1 x10^3/uL (0.0-0.2) Sodium Level 140 mmol/L (136-145) Potassium Level 4.3 mmol/L (3.5-5.1) Chloride Level 103 mmol/L (98-107) Carbon Dioxide Level 28 mmol/L (21-32) Anion Gap 9 (6-14) Blood Urea Nitrogen 16 mg/dL (8-26) Creatinine 1.3 mg/dL (0.7-1.3) Estimated GFR (Cockcroft-Gault) 56.1 BUN/Creatinine Ratio 12 (6-20) Glucose Level 381 mg/dL (70-99) H Calcium Level 9.4 mg/dL (8.5-10.1) Magnesium Level 1.9 mg/dL (1.8-2.4) Total Bilirubin 0.5 mg/dL (0.2-1.0) Aspartate Amino Transferase (AST) 17 U/L (15-37) Alanine Aminotransferase (ALT) 35 U/L (16-63) Alkaline Phosphatase 121 U/L (46-116) H Creatine Kinase 102 U/L (39-308) Troponin I Quantitative < 0.017 ng/mL (0.000-0.055) NA-Mdc-T-Type Natriuretic Peptide 139 pg/mL (0-124) H Total Protein 7.6 g/dL (6.4-8.2) Albumin 3.1 g/dL (3.4-5.0) L Albumin/Globulin Ratio 0.7 (1.0-1.7) L Urine Collection Type U cath Urine Color Yellow Urine Clarity Clear Urine pH 5.0 (<5.0-8.0) Urine Specific [place] 1.025 (1.000-1.030) Urine Protein 30 mg/dL (NEG-TRACE) Urine Glucose (UA) >=1000 mg/dL (NEG) Urine Ketones (Stick) Trace mg/dL (NEG) Urine Blood Negative (NEG) Urine Nitrite Negative (NEG) Urine Bilirubin Negative (NEG) Urine Urobilinogen Dipstick 0.2 mg/dL (0.2 mg/dL) Urine Leukocyte Esterase Moderate (NEG) Urine RBC 0 /HPF (0-2) Urine WBC >40 /HPF (0-4) Urine Squamous Epithelial Cells Few /LPF Urine Bacteria Many /HPF (0-FEW) Urine Hyaline Casts Few /HPF Urine Opiates Screen Neg (NEG) Urine Methadone Screen Neg (NEG) Urine Barbiturates Neg (NEG) Urine Phencyclidine Screen Neg (NEG) Urine Amphetamine/Methamphetamine Neg (NEG) Urine Benzodiazepines Screen Neg (NEG) Urine Cocaine Screen Neg (NEG) Urine Cannabinoids Screen Neg (NEG) Urine Ethyl Alcohol Neg (NEG) Laboratory Tests 11/27/20 15:25 Laboratory Tests 11/27/20 15:25 (MANOHAR MONTOYA DO) EKG EKG [] (FRANCHESCA HERNANDEZ MD) Radiology/Procedures Radiology/Procedures [] (FRANCHESCA HERNANDEZ MD) Radiology/Procedures IMAGING REPORT Signed PATIENT: MEL OSORIO ACCOUNT: [id number] : 1960 LOCATION: ED HOLD AGE: 60 SEX: M EXAM STATUS: ADM IN ORD. PHYSICIAN: MANOHAR MONTOYA DO REASON: ams, rash in pelvis/likely candidial, OMNI 300 60 ML IV PROCEDURE: CT ABD PELV W/ IV CONTRST ONLY CT abdomen pelvis with contrast dated 11/28/2020. No comparison available. CLINICAL INDICATION: Altered mental status. Rash and pelvis. TECHNIQUE: Contiguous axial imaging the abdomen pelvis performed after the administration of 60 cc Omnipaque 300. One or more of the following individualized dose reduction techniques were utilized for this examination: 1. Automated exposure control 2. Adjustment of the mA and/or kV according to patient size 3. Use of iterative reconstruction technique FINDINGS: Images of lung bases show dependent opacity in the lower lobes, likely scar or atelectasis. Heart size is upper limits of normal. No pleural or pericardial effusion. Liver is of low density suggesting mild fatty infiltration. Indeterminate low- density focus in the lateral segment left lobe liver best seen on coronal image 35 measures approximately 2 cm. No biliary ductal dilatation. Gallbladder surgically absent. Spleen is normal in size. Pancreas is somewhat atrophic. Adrenal glands and kidneys are unremarkable. No hydronephrosis. GI tract normal in caliber and contour. No focal bowel wall thickening. No inflammatory stranding in the mesentery. The appendix is normal in caliber. No ascites or lymphadenopathy. Abdominal aorta normal in caliber. Images of pelvis show nondistended urinary bladder. Mild diffuse bladder wall thickening. The prostate gland is normal in size. No free fluid or pelvic lymphadenopathy. Bone windows show no acute finding. Multilevel spondylosis. IMPRESSION: 1. No acute abnormality of abdomen or pelvis. Normal appendix. 2. Mild fatty infiltration the liver. 3. Small low-density focus in the left lobe liver measuring about 2 cm, indeterminate. Follow-up imaging to ensure stability. Electronically signed by: Kimani Garza MD (11/28/2020 12:42 AM) [facility] [place] DICTATED and SIGNED BY: KIMANI GARZA MD DATE: 11/28/20 [id number] (MANOHAR MONTOYA DO) Course & Med Decision Making Course & Med Decision Making Pertinent Labs and Imaging studies reviewed. (See chart for details) 60-year-old male presented emergency department with nonspecific altered mental status. Will obtain a broad work-up including work-up for possible underlying septic etiology or other metabolic encephalopathy could explain patient's symptoms. At this time the patient hemodynamically stable. (FRANCHESCA HERNANDEZ MD) Course & Med Decision Making I received sign out at shift change from Dr. Hernandez. Ed workup c/w altered mental status in a patient with known dementia, concern for sepsis secondary to urinary tract infection, chest x-ray concerning for moderate cardiomegaly. Pt groaning with sternal rub, no coherent speech on NC (not on home oxygen). Will admit for further medical management. Patient stable at time of admission. (MANOHAR MONTOYA DO) Dragon Disclaimer Dragon Disclaimer This electronic medical record was generated, in whole or in part, using a voice recognition dictation system. (FRANCHESCA HERNANDEZ MD) Departure Departure Impression: Primary Impression: Sepsis Additional Impressions: UTI (urinary tract infection) Cardiomegaly Hypoxia Disposition: ADMITTED INPATIENT Admitting Physician: BRI (Dr. Barriga) (MANOHAR MONTOYA DO) Condition: GUARDED Referrals: FRANCHESCA GUILLEN MD (PCP) Problem Qualifiers FRANCHESCA HERNANDEZ MD Nov 27, 2020 17:10 MANOHAR MONTOYA DO Nov 27, 2020 22:24
--- NOTE | 2020-11-27 17:31 | EKG ---
[facility] [address] [place] [address] Test Date: 2020-11-27 Test Time: 15:36:27 Pat Name: MEL OSORIO Department: Patient ID: [facility]-[id number] Room: Gender: M Contract Writer: REJI ER : 1960 Requested By: FRANCHESCA HOYT Order Number: [id number] Reading MD: Measurements Intervals [place] Rate: 83 P: [place]: QRS: 126 QRSD: 92 T: 77 QT: 392 QTc: 467 Interpretive Statements IRREGULAR RHYTHM, NO P-WAVE FOUND ABNORMAL RIGHT AXIS DEVIATION LOW LIMB LEAD VOLTAGE QRS(T) CONTOUR ABNORMALITY CONSISTENT WITH ANTEROSEPTAL INFARCT AGE UNDETERMINED ABNORMAL ECG RI6.02 No previous ECG available for comparison
--- NOTE | 2020-11-27 18:18 | RAD ---
EXAM: CT HEAD WITHOUT CONTRAST. HISTORY: Altered mental status. TECHNIQUE: Computed tomography of the head was performed without intravenous contrast. One or more of the following individualized dose reduction techniques were utilized for this examination: 1. Automated exposure control. 2. Adjustment of the mA and/or kV according to patient size. 3. Use of iterative reconstruction technique. COMPARISON: 03/04/2019. FINDINGS: There is no intracranial hemorrhage. There has been interval evolution of encephalomalacia throughout the left middle cerebral artery territory, consistent with a chronic infarct. There is ex vacuo dilatation of the left lateral ventricle and Wallerian degeneration. The visualized paranasal sinuses appear clear. The orbits are unremarkable. The temporal bones are un remarkable. The calvarium reveals no suspicious lesions. IMPRESSION: 1. 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 No acute intracranial findings. Electronically signed by: Claudia Ventura MD (11/27/2020 6:16 PM) [facility]
[2020-11-27 21:25] LABS: BILIRUBIN,URINE NEGATIVE (NEG); CLARITY,URINE CLEAR; COLOR,URINE YELLOW; NITRITE,URINE NEGATIVE (NEG); PROTEIN,URINE 30 mg/dL (NEG-TRACE); UROBILINOGEN,URINE 0.2 mg/dL (0.2 mg/dL)
[2020-11-27 21:32] LABS: BARBITURATES NEG (NEG); BENZODIAZEPINES NEG (NEG); CANNABINOIDS NEG (NEG); COCAINE NEG (NEG); METHADONE NEG (NEG); OPIATES NEG (NEG); PHENCYCLIDINE NEG (NEG)
[2020-11-27 21:34] LABS: AMPHETAMINE/METHAMPHETAMINE NEG (NEG)
[2020-11-27 21:37] LABS: HYALINE CASTS, URINE FEW /HPF
[2020-11-27 21:38] LABS: BACTERIA,URINE MANY /HPF (0-FEW); WBC,URINE >40 /HPF (0-4)
[2020-11-27 21:40] LABS: RBC,URINE 0 /HPF (0-2)
[2020-11-27] MEDS ORDERED: cefTRIAXone IV Push 1 GM VIAL. IVP ONE (23:00)
[2020-11-27] MEDS ORDERED: CONTRAST GIVEN. MC PRN (23:45)
[2020-11-28] MEDS ORDERED: IOHEXOL 300 MG/ML 100ML VIAL. IV ONE
--- NOTE | 2020-11-28 00:45 | RAD ---
CT abdomen pelvis with contrast dated 11/28/2020. No comparison available. CLINICAL INDICATION: Altered mental status. Rash and pelvis. TECHNIQUE: Contiguous axial imaging the abdomen pelvis performed after the administration of 60 cc Omnipaque 300 . One or more of the following individualized dose reduction techniques were utilized for this examinat ion: 1. Automated exposure control 2. Adjustment of the mA and/or kV according to patient size 3. Use of iterative reconstruction technique FINDINGS: Images of lung bases show dependent opacity in the lower lobes, likely scar or atelectasis. Heart siz e is upper limits of normal. No pleural or pericardial effusion. Liver is of low density suggesting mild fatty infiltration. Indeterminate low-density focus in the la teral segment left lobe liver best seen on coronal image 35 measures approximately 2 cm. No biliary d uctal dilatation. Gallbladder surgically absent. Spleen is normal in size. Pancreas is somewhat atrophic. Adrenal glands and kidneys are unremarkable. No hydronephrosis. GI tract normal in caliber and contour. No focal bowel wall thickening. No inflammatory stranding in the mesentery. The appendix is normal in caliber. No ascites or lymphadenopathy. Abdominal aorta norm al in caliber. Images of pelvis show nondistended urinary bladder. Mild diffuse bladder wall thickening. The prostat e gland is normal in size. No free fluid or pelvic lymphadenopathy. Bone windows show no acute finding. Multilevel spondylosis. IMPRESSION: 1. No acute abnormality of abdomen or pelvis. Normal appendix. 2. Mild fatty infiltration the liver. 3. Small low-density focus in the left lobe liver measuring about 2 cm, indeterminate. Follow-up imag ing to ensure stability. Electronically signed by: Kimani Garza MD (11/28/2020 12:42 AM) [facility]
--- NOTE | 2020-11-28 11:56 | PDOC1 ---
History and Physical Date of Admission Date of Admission DATE: 11/28/20 TIME: 11:55 Identification/Chief Complaint Chief Complaint ACUTE ALTERED MENTAL STATUS, UTI, glucose uncontrolled, sepsis History of Present Illness History of Present Illness 60 year old male with a past medical history including hypertension, diabetes, hyperlipidemia, dementia, prior CVA, A. fib presented emergency department for altered mental status. // report from the shelter patient was acting altered and not like himself 424 at facility patient oxygen saturation dropped to approximately 81%. The patient is unable to provide any history, just mutters some words now hospitalized for further evaluation. No new focalized motor deficits noted. 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 No acute intracranial findings. started on iv rocephin in ER No acute abnormality of abdomen or pelvis. Normal appendix., ua C/W pyuria WBC 13.3, mild hypotension noted in ER The heart is moderately enlarged on cxr Admitted with sepsis , hypoxia, expect length of stay > 48 hrs Past Medical History Past Medical History Past Medical History Past Medical History: A-Fib, Constipation, Dementia, Depression, Diabetes-Type II, GERD, High Cholesterol, Heart Disease, Hypertension, Stroke Additional Past Medical Histor: rt side deficit, aphasia Past Surgical History: Other Additional Past Surgical Histo: unknown Smoking Status: Former Smoker Alcohol Use: None Drug Use: None FHX OBESITY Cardiovascular: AFIB, CAD, CHF, HTN CENTRAL NERVOUS SYSTEM: CVA Psych: Depression Infectious disease: Other Endocrine: Diabetes Past Surgical History Past Surgical History: Other Family History Family History: Hypertension, Family History Unknown Social History Smoke: Quit ALCOHOL: none Drugs: None, Other Current Problem List Problem List Problems Medical Problems: (1) Cardiomegaly Status: Acute (2) Hypoxia Status: Acute (3) Sepsis Status: Acute (4) UTI (urinary tract infection) Status: Acute Current Medications Current Medications Current Medications Ceftriaxone Sodium (Rocephin) 1 gm 1X ONCE IVP Last administered on 11/27/20at 23:10; Start 11/27/20 at 23:00; Stop 11/27/20 at 23:01; Status DC Iohexol (Omnipaque 300 Mg/ml) 75 ml 1X ONCE IV Last administered on 11/28/20at 00:09; Start 11/28/20 at 00:00; Stop 11/28/20 at 00:01; Status DC Info (CONTRAST GIVEN -- Rx MONITORING) 1 each PRN DAILY PRN MC SEE COMMENTS; Start 11/27/20 at 23:45; Stop 11/29/20 at 23:44 Active Scripts Active Tramadol Hcl 50 Mg Tablet 50 Mg PO PRN Q8HRS PRN 6 Days Reported Vitamin D3 (Cholecalciferol (Vitamin D3)) 5,000 Unit Tablet 50,000 Unit PO QTH Triple Antibiotic Plus Ointmnt (Neomycn/Baci Zn/Pmyx Bs/Pramox) 28.4 Gm Oint...g. 1 Rafa TP DAILY Trazodone Hcl 50 Mg Tablet 50 Mg PO HS Nystatin 15 Gm Cream..g. 1 Rafa TP PRN BID PRN Mag-Al Plus Suspension (Mag Hydrox/Al Hydrox/Simeth) 30 Ml Oral.susp 20 Ml PO PRN Q6HRS PRN Mirtazapine 15 Mg Tablet 15 Mg PO HS Milk Of Magnesia (Magnesium Hydroxide) 400 Mg/5 Ml Oral.susp 30 Ml PO PRN DAILY PRN Methyl Salicylate 120 Gm Cream..g. 1 Rafa TP PRN Q6HRS PRN Metformin Hcl Er (Metformin Hcl) 500 Mg Tab.er.24h 500 Mg PO DAILY Cymbalta (Duloxetine Hcl) 60 Mg Capsule.dr 60 Mg PO DAILY Abilify (Aripiprazole) 5 Mg Tablet 2.5 Mg PO DAILY Acetaminophen 160 Mg/5 Ml Oral.susp 2.5 Ml PO PRN Q6HRS Losartan Potassium 50 Mg Tablet 50 Mg PO DAILY Gabapentin (Gabapentin) 400 Mg Capsule 400 Mg PO QID Eliquis (Apixaban) 5 Mg Tablet 5 Mg PO BID Carvedilol (Carvedilol) 6.25 Mg Tablet 1 Tab PO BID Baclofen 10 Mg Tablet 1 Tab PO TID Atorvastatin Calcium 40 Mg Tablet 1 Tab PO QHS Aspirin 81 Mg Tab.chew 1 Tab PO DAILY Aldactone (Spironolactone) 25 Mg Tablet 1 Tab PO DAILY Allergies Allergies: Coded Allergies: Influenza Virus Vaccines (Verified Allergy, Intermediate, 02/12/18) Penicillins (Verified Allergy, Intermediate, 02/12/18) hydrocodone (Verified Allergy, Intermediate, 02/12/18) ROS Review of System unable to provide hx due to dementia, cva General: YES: Fatigue PSYCHOLOGICAL ROS: YES: Concentration difficultie ALLERGY AND IMMUNOLOGY: YES: Hives; No: Insect Bite Sensitivity, Itchy/Watery Eyes, Nasal Congestion, Post Nasal Drip, Seasonal Allergies, Other Hematological and Lymphatic: No: Bleeding Problems, Blood Clots, Blood Transfusions, Brusing, Night Sweats, Pallor, Swollen Lymph Nodes, Other Neurological: Yes Behavorial Changes, Yes Confusion Physical Exam Physical Exam HEENT: Pupils equally round and reactive to light, EOMI, no discharge, normal conjunctiva Neck: Supple, no nuchal rigidity, no JVD, trachea midline, no tenderness Cardiac: RRR, no murmurs, no gallops, no rubs Chest/Lungs: CTA, no wheeze, no rhonchi, no crackles Abdomen: soft, non-distended, no guarding, no peritoneal signs, non-tender Back: No tenderness Extremities: no edema, pulses intact, non-tender,capillary refill <3 sec bilateral upper and lower extremities, HEENT: Normocephalic and nontraumatic. EOMI Neck is supple. No lymphadenopathy. No crepitus. Cardiovascular: S1, S2. Pulmonary: Clear to auscultation bilaterally. Abdomen: Bowel sounds are positive. Abdomen is soft, nontender, and nondistended. Extremities: No rash, lesions, or edema. No restriction of range of motion Abdomen: Bowel sounds normal, soft, no tenderness, no masses, no pulsatile masses. [] Skin: Warm, dry, no erythema, no rash. [] Back: No tenderness, no CVA tenderness. [] Extremities: No tenderness, no cyanosis, no clubbing, ROM intact, no edema. [] General: Cooperative, No acute distress HEENT: EOMI Lungs: Clear to auscultation, Normal air movement Heart: irregularly irregular Breasts: Not examined Abdomen: Normal bowel sounds, Soft, Other (CERY OBESE) Rectal Exam: not examined Extremities: No cyanosis Vitals Vitals Vital Signs Date Time Temp Pulse Resp B/P (MAP) Pulse Ox O2 Delivery O2 Flow Rate FiO2 11/28/20 07:27 86 18 155/85 (108) 97 Nasal Cannula 2.0 11/27/20 15:00 98.4 98.4 Labs Labs Laboratory Tests Test 11/27/20 15:25 11/27/20 21:10 11/27/20 22:35 White Blood Count 13.3 x10^3/uL (4.0-11.0) Red Blood Count 5.10 x10^6/uL (4.30-5.70) Hemoglobin 13.9 g/dL (13.0-17.5) Hematocrit 42.3 % (39.0-53.0) Mean Corpuscular Volume 83 fL (79-100) Mean Corpuscular Hemoglobin 27 pg (25-35) Mean Corpuscular Hemoglobin Concent 33 g/dL (31-37) Red Cell Distribution Width 16.2 % (11.5-14.5) Platelet Count 371 x10^3/uL (140-400) Neutrophils (%) (Auto) 77 % (31-73) Lymphocytes (%) (Auto) 13 % (24-48) Monocytes (%) (Auto) 6 % (0-9) Eosinophils (%) (Auto) 3 % (0-3) Basophils (%) (Auto) 1 % (0-3) Neutrophils # (Auto) 10.2 x10^3/uL (1.8-7.7) Lymphocytes # (Auto) 1.7 x10^3/uL (1.0-4.8) Monocytes # (Auto) 0.8 x10^3/uL (0.0-1.1) Eosinophils # (Auto) 0.4 x10^3/uL (0.0-0.7) Basophils # (Auto) 0.1 x10^3/uL (0.0-0.2) Sodium Level 140 mmol/L (136-145) Potassium Level 4.3 mmol/L (3.5-5.1) Chloride Level 103 mmol/L (98-107) Carbon Dioxide Level 28 mmol/L (21-32) Anion Gap 9 (6-14) Blood Urea Nitrogen 16 mg/dL (8-26) Creatinine 1.3 mg/dL (0.7-1.3) Estimated GFR (Cockcroft-Gault) 56.1 BUN/Creatinine Ratio 12 (6-20) Glucose Level 381 mg/dL (70-99) Calcium Level 9.4 mg/dL (8.5-10.1) Magnesium Level 1.9 mg/dL (1.8-2.4) Total Bilirubin 0.5 mg/dL (0.2-1.0) Aspartate Amino Transf (AST/SGOT) 17 U/L (15-37) Alanine Aminotransferase (ALT/SGPT) 35 U/L (16-63) Alkaline Phosphatase 121 U/L (46-116) Creatine Kinase 102 U/L (39-308) Troponin I Quantitative < 0.017 ng/mL (0.000-0.055) DV-Khs-D-Type Natriuretic Peptide 139 pg/mL (0-124) Total Protein 7.6 g/dL (6.4-8.2) Albumin 3.1 g/dL (3.4-5.0) Albumin/Globulin Ratio 0.7 (1.0-1.7) Urine Collection Type U cath Urine Color Yellow Urine Clarity Clear Urine pH 5.0 (<5.0-8.0) Urine Specific [place] 1.025 (1.000-1.030) Urine Protein 30 mg/dL (NEG-TRACE) Urine Glucose (UA) >=1000 mg/dL (NEG) Urine Ketones (Stick) Trace mg/dL (NEG) Urine Blood Negative (NEG) Urine Nitrite Negative (NEG) Urine Bilirubin Negative (NEG) Urine Urobilinogen Dipstick 0.2 mg/dL (0.2 mg/dL) Urine Leukocyte Esterase Moderate (NEG) Urine RBC 0 /HPF (0-2) Urine WBC >40 /HPF (0-4) Urine Squamous Epithelial Cells Few /LPF Urine Bacteria Many /HPF (0-FEW) Urine Hyaline Casts Few /HPF Urine Opiates Screen Neg (NEG) Urine Methadone Screen Neg (NEG) Urine Barbiturates Neg (NEG) Urine Phencyclidine Screen Neg (NEG) Urine Amphetamine/Methamphetamine Neg (NEG) Urine Benzodiazepines Screen Neg (NEG) Urine Cocaine Screen Neg (NEG) Urine Cannabinoids Screen Neg (NEG) Urine Ethyl Alcohol Neg (NEG) Lactic Acid Level 1.5 mmol/L (0.4-2.0) Laboratory Tests Test 11/27/20 15:25 11/27/20 21:10 11/27/20 22:35 White Blood Count 13.3 x10^3/uL (4.0-11.0) Red Blood Count 5.10 x10^6/uL (4.30-5.70) Hemoglobin 13.9 g/dL (13.0-17.5) Hematocrit 42.3 % (39.0-53.0) Mean Corpuscular Volume 83 fL (79-100) Mean Corpuscular Hemoglobin 27 pg (25-35) Mean Corpuscular Hemoglobin Concent 33 g/dL (31-37) Red Cell Distribution Width 16.2 % (11.5-14.5) Platelet Count 371 x10^3/uL (140-400) Neutrophils (%) (Auto) 77 % (31-73) Lymphocytes (%) (Auto) 13 % (24-48) Monocytes (%) (Auto) 6 % (0-9) Eosinophils (%) (Auto) 3 % (0-3) Basophils (%) (Auto) 1 % (0-3) Neutrophils # (Auto) 10.2 x10^3/uL (1.8-7.7) Lymphocytes # (Auto) 1.7 x10^3/uL (1.0-4.8) Monocytes # (Auto) 0.8 x10^3/uL (0.0-1.1) Eosinophils # (Auto) 0.4 x10^3/uL (0.0-0.7) Basophils # (Auto) 0.1 x10^3/uL (0.0-0.2) Sodium Level 140 mmol/L (136-145) Potassium Level 4.3 mmol/L (3.5-5.1) Chloride Level 103 mmol/L (98-107) Carbon Dioxide Level 28 mmol/L (21-32) Anion Gap 9 (6-14) Blood Urea Nitrogen 16 mg/dL (8-26) Creatinine 1.3 mg/dL (0.7-1.3) Estimated GFR (Cockcroft-Gault) 56.1 BUN/Creatinine Ratio 12 (6-20) Glucose Level 381 mg/dL (70-99) Calcium Level 9.4 mg/dL (8.5-10.1) Magnesium Level 1.9 mg/dL (1.8-2.4) Total Bilirubin 0.5 mg/dL (0.2-1.0) Aspartate Amino Transf (AST/SGOT) 17 U/L (15-37) Alanine Aminotransferase (ALT/SGPT) 35 U/L (16-63) Alkaline Phosphatase 121 U/L (46-116) Creatine Kinase 102 U/L (39-308) Troponin I Quantitative < 0.017 ng/mL (0.000-0.055) KF-Yxn-V-Type Natriuretic Peptide 139 pg/mL (0-124) Total Protein 7.6 g/dL (6.4-8.2) Albumin 3.1 g/dL (3.4-5.0) Albumin/Globulin Ratio 0.7 (1.0-1.7) Urine Collection Type U cath Urine Color Yellow Urine Clarity Clear Urine pH 5.0 (<5.0-8.0) Urine Specific [place] 1.025 (1.000-1.030) Urine Protein 30 mg/dL (NEG-TRACE) Urine Glucose (UA) >=1000 mg/dL (NEG) Urine Ketones (Stick) Trace mg/dL (NEG) Urine Blood Negative (NEG) Urine Nitrite Negative (NEG) Urine Bilirubin Negative (NEG) Urine Urobilinogen Dipstick 0.2 mg/dL (0.2 mg/dL) Urine Leukocyte Esterase Moderate (NEG) Urine RBC 0 /HPF (0-2) Urine WBC >40 /HPF (0-4) Urine Squamous Epithelial Cells Few /LPF Urine Bacteria Many /HPF (0-FEW) Urine Hyaline Casts Few /HPF Urine Opiates Screen Neg (NEG) Urine Methadone Screen Neg (NEG) Urine Barbiturates Neg (NEG) Urine Phencyclidine Screen Neg (NEG) Urine Amphetamine/Methamphetamine Neg (NEG) Urine Benzodiazepines Screen Neg (NEG) Urine Cocaine Screen Neg (NEG) Urine Cannabinoids Screen Neg (NEG) Urine Ethyl Alcohol Neg (NEG) Lactic Acid Level 1.5 mmol/L (0.4-2.0) Images Images EXAM: CHEST ONE VIEW. HISTORY: Chest pain. COMPARISON: 03/04/2019. FINDINGS: A frontal view of the chest is obtained. There are no confluent infiltrates. There is no pneumothorax or clear pleural effusion. Blunting of the left costophrenic angle is most likely secondary to an epicardial fat pad. The heart is moderately enlarged. There are atherosclerotic calcifications of the aorta. IMPRESSION: 1. Moderate cardiomegaly. Electronically signed by: Claudia Ventura MD (11/27/2020 3:56 PM) [facility] DICTATED and SIGNED BY: LORI VENTURA MD DATE: 11/27/20 [id number] STATUS: REG ADAM. PHYSICIAN: FRANCHESCA HOYT MD REASON: AMS PROCEDURE: CT HEAD WO CONTRAST EXAM: CT HEAD WITHOUT CONTRAST. HISTORY: Altered mental status. TECHNIQUE: Computed tomography of the head was performed without intravenous contrast. One or more of the following individualized dose reduction techniques were utilized for this examination: 1. Automated exposure control. 2. Adjustment of the mA and/or kV according to patient size. 3. Use of iterative reconstruction technique. COMPARISON: 03/04/2019. FINDINGS: There is no intracranial hemorrhage. There has been interval evolution of encephalomalacia throughout the left middle cerebral artery territory, consistent with a chronic infarct. There is ex vacuo dilatation of the left lateral ventricle and Wallerian degeneration. The visualized paranasal sinuses appear clear. The orbits are unremarkable. The temporal bones are unremarkable. The calvarium reveals no suspicious lesions. IMPRESSION: 1. 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 No acute intracranial findings. Electronically signed by: Claudia Ventura MD (11/27/2020 6:16 PM) [facility] DICTATED and SIGNED BY: LORI VENTURA MD DATE: 11/27/20 [id number] Signed PATIENT: MEL OSORIO ACCOUNT: [id number] : 1960 LOCATION: ED HOLD AGE: 60 SEX: M EXAM STATUS: ADM IN ORD. PHYSICIAN: MANOHAR MONTOYA DO REASON: ams, rash in pelvis/likely candidial, OMNI 300 60 ML IV PROCEDURE: CT ABD PELV W/ IV CONTRST ONLY CT abdomen pelvis with contrast dated 11/28/2020. No comparison available. CLINICAL INDICATION: Altered mental status. Rash and pelvis. TECHNIQUE: Contiguous axial imaging the abdomen pelvis performed after the administration of 60 cc Omnipaque 300. One or more of the following individualized dose reduction techniques were utilized for this examination: 1. Automated exposure control 2. Adjustment of the mA and/or kV according to patient size 3. Use of iterative reconstruction technique FINDINGS: Images of lung bases show dependent opacity in the lower lobes, likely scar or atelectasis. Heart size is upper limits of normal. No pleural or pericardial effusion. Liver is of low density suggesting mild fatty infiltration. Indeterminate low- density focus in the lateral segment left lobe liver best seen on coronal image 35 measures approximately 2 cm. No biliary ductal dilatation. Gallbladder surgically absent. Spleen is normal in size. Pancreas is somewhat atrophic. Adrenal glands and kidneys are unremarkable. No hydronephrosis. GI tract normal in caliber and contour. No focal bowel wall thickening. No inflammatory stranding in the mesentery. The appendix is normal in caliber. No ascites or lymphadenopathy. Abdominal aorta normal in caliber. Images of pelvis show nondistended urinary bladder. Mild diffuse bladder wall thickening. The prostate gland is normal in size. No free fluid or pelvic lymphadenopathy. Bone windows show no acute finding. Multilevel spondylosis. IMPRESSION: 1. No acute abnormality of abdomen or pelvis. Normal appendix. 2. Mild fatty infiltration the liver. 3. Small low-density focus in the left lobe liver measuring about 2 cm, indeterminate. Follow-up imaging to ensure stability. Electronically signed by: Kimani Garza MD (11/28/2020 12:42 AM) [facility] [place] DICTATED and SIGNED BY: KIMANI GARZA MD VTE Prophylaxis Ordered VTE Prophylaxis Devices: Yes VTE Pharmacological Prophylaxi: Yes Assessment/Plan Assessment/Plan IMPRESSION: acute sepsis, source UTI Leukocytosis Metabolic encephalopathy. ACUTE Hyperglycemia, glucose 381 in ER Moderate intervertebral disc height loss identified in the cervical spine particularly at C5-C6, C6-C7 vertebral level. recent CT C/S morbid obesity, severe DM. uncontrolled HTN. Hyperlipidemia Afib. 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 Obesity. 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 No acute intracranial findings. ct head today plan ADMIT- cvc bed Blood cultures emperic IV antibiotics, continue IV Rocephin 1 gm q 24 hrs urine culture SS insulin dvt prophylaxis D/C METFORMIN DUE TO RENAL insufficiency, cr PT/OT/ST Continue home meds when able to safely swallow echo neurochecks q 4 hrs BLADDER SCAN PROTOCOL D/W ER Justifications for Admission Other Justification PATY MCCARTHY MD Nov 28, 2020 11:56
[2020-11-28] MEDS ORDERED: cefTRIAXone IV Push 1 GM VIAL. IVP SCH (12:00)
[2020-11-28] MEDS ORDERED: LORazepam 0.5 MG TABLET PO PRN (12:15)
[2020-11-28] MEDS: IPRATRPIUM/ALBUTEROL 0.5/2.5MG 3 ML NEBU. NEB SCH ×3 (12:15→20:02)
[2020-11-28] MEDS ORDERED: SODIUM PHOSPHATES 19/7GM 133 ML ENEMA. PR PRN (12:15)
[2020-11-28] MEDS ORDERED: ENOXAPARIN 40 MG/0.4 ML SYRINGE. SQ SCH (12:15)
[2020-11-28] MEDS ORDERED: guaiFENesin ORAL 200 MG/10 ML LIQUID. PO PRN (12:15)
[2020-11-28] MEDS ORDERED: ONDANSETRON PF 4 MG/2 ML VIAL. IV PRN (12:15)
[2020-11-28] MEDS ORDERED: 0.9 % SODIUM CHLORIDE 10 ML DISP.SYRIN. IV PRN (12:15)
[2020-11-28] MEDS ORDERED: DOCUSATE SODIUM 100 MG CAPSULE. PO PRN (12:15)
[2020-11-28] MEDS ORDERED: MAG HYDROX/ALUMINUM HYD/SIMETH 30 ML ORAL.SUSP PO PRN ×2 (12:15→13:00)
[2020-11-28] MEDS ORDERED: ACETAMINOPHEN 650 MG SUPP.RECT. PR PRN (12:15)
[2020-11-28] MEDS ORDERED: NYSTATIN 100,000 UNIT/GM TOPICAL CREAM 15GM TUBE. TP PRN (12:30)
[2020-11-28] MEDS ORDERED: DEXTROSE 50% 25 GM / 50ML DISP.SYRIN. IV PRN ×2 (12:30→13:45)
[2020-11-28] MEDS ORDERED: MAGNESIUM HYDROXIDE 2,400 MG/30 ML ORAL.SUSP. PO PRN (12:30)
[2020-11-28] MEDS ORDERED: ACETAMINOPHEN PO SCH (12:30)
[2020-11-28] MEDS ORDERED: ANTI-COAG MONITOR BY PHARMACY. MC PRN (12:45)
[2020-11-28] MEDS: ASPIRIN CHEWABLE 81 MG TABLET. PO SCH (13:00)
[2020-11-28] MEDS ORDERED: METHYL SALICYLATE/MENTHOL TOPICAL CREAM 57GM TUBE. TP PRN (13:00)
[2020-11-28] MEDS: NEOMY/BACITR/POLYMYXIN OINT PACKET. TP SCH (13:00)
[2020-11-28] MEDS ORDERED: INSULIN LISPRO 300 UNITS/3 ML VIAL. SQ SCH (13:30)
[2020-11-28] MEDS: IV NORMAL SALINE 1000ML BAG 1,000 ML IV SCH (13:52)
[2020-11-28] MEDS: BACLOFEN 10 MG TABLET. PO SCH ×2 (14:00→21:49)
[2020-11-28] MEDS: INSULIN LISPRO 300 UNITS/3 ML VIAL. SQ SCH ×2 (14:05→17:57)
--- NOTE | 2020-11-28 14:26 | PDOC ---
Infectious Disease Note Vital Sign Vital Signs Vital Signs Date Time Temp Pulse Resp B/P (MAP) Pulse Ox O2 Delivery O2 Flow Rate FiO2 11/28/20 07:27 86 18 155/85 (108) 97 Nasal Cannula 2.0 11/27/20 15:00 98.4 98.4 Labs Lab Laboratory Tests Test 11/27/20 15:25 11/27/20 21:10 11/27/20 22:35 11/28/20 13:19 White Blood Count 13.3 x10^3/uL (4.0-11.0) Red Blood Count 5.10 x10^6/uL (4.30-5.70) Hemoglobin 13.9 g/dL (13.0-17.5) Hematocrit 42.3 % (39.0-53.0) Mean Corpuscular Volume 83 fL (79-100) Mean Corpuscular Hemoglobin 27 pg (25-35) Mean Corpuscular Hemoglobin Concent 33 g/dL (31-37) Red Cell Distribution Width 16.2 % (11.5-14.5) Platelet Count 371 x10^3/uL (140-400) Neutrophils (%) (Auto) 77 % (31-73) Lymphocytes (%) (Auto) 13 % (24-48) Monocytes (%) (Auto) 6 % (0-9) Eosinophils (%) (Auto) 3 % (0-3) Basophils (%) (Auto) 1 % (0-3) Neutrophils # (Auto) 10.2 x10^3/uL (1.8-7.7) Lymphocytes # (Auto) 1.7 x10^3/uL (1.0-4.8) Monocytes # (Auto) 0.8 x10^3/uL (0.0-1.1) Eosinophils # (Auto) 0.4 x10^3/uL (0.0-0.7) Basophils # (Auto) 0.1 x10^3/uL (0.0-0.2) Sodium Level 140 mmol/L (136-145) Potassium Level 4.3 mmol/L (3.5-5.1) Chloride Level 103 mmol/L (98-107) Carbon Dioxide Level 28 mmol/L (21-32) Anion Gap 9 (6-14) Blood Urea Nitrogen 16 mg/dL (8-26) Creatinine 1.3 mg/dL (0.7-1.3) Estimated GFR (Cockcroft-Gault) 56.1 BUN/Creatinine Ratio 12 (6-20) Glucose Level 381 mg/dL (70-99) Calcium Level 9.4 mg/dL (8.5-10.1) Magnesium Level 1.9 mg/dL (1.8-2.4) Total Bilirubin 0.5 mg/dL (0.2-1.0) Aspartate Amino Transf (AST/SGOT) 17 U/L (15-37) Alanine Aminotransferase (ALT/SGPT) 35 U/L (16-63) Alkaline Phosphatase 121 U/L (46-116) Creatine Kinase 102 U/L (39-308) Troponin I Quantitative < 0.017 ng/mL (0.000-0.055) VU-Pjo-C-Type Natriuretic Peptide 139 pg/mL (0-124) Total Protein 7.6 g/dL (6.4-8.2) Albumin 3.1 g/dL (3.4-5.0) Albumin/Globulin Ratio 0.7 (1.0-1.7) Urine Collection Type U cath Urine Color Yellow Urine Clarity Clear Urine pH 5.0 (<5.0-8.0) Urine Specific [place] 1.025 (1.000-1.030) Urine Protein 30 mg/dL (NEG-TRACE) Urine Glucose (UA) >=1000 mg/dL (NEG) Urine Ketones (Stick) Trace mg/dL (NEG) Urine Blood Negative (NEG) Urine Nitrite Negative (NEG) Urine Bilirubin Negative (NEG) Urine Urobilinogen Dipstick 0.2 mg/dL (0.2 mg/dL) Urine Leukocyte Esterase Moderate (NEG) Urine RBC 0 /HPF (0-2) Urine WBC >40 /HPF (0-4) Urine Squamous Epithelial Cells Few /LPF Urine Bacteria Many /HPF (0-FEW) Urine Hyaline Casts Few /HPF Urine Opiates Screen Neg (NEG) Urine Methadone Screen Neg (NEG) Urine Barbiturates Neg (NEG) Urine Phencyclidine Screen Neg (NEG) Urine Amphetamine/Methamphetamine Neg (NEG) Urine Benzodiazepines Screen Neg (NEG) Urine Cocaine Screen Neg (NEG) Urine Cannabinoids Screen Neg (NEG) Urine Ethyl Alcohol Neg (NEG) Lactic Acid Level 1.5 mmol/L (0.4-2.0) Glucose (Fingerstick) 467 mg/dL (70-99) Micro Microbiology 11/27/20 Blood Culture - Final, Complete Objective Assessment UTI. POA Bacteremia with GPC in chains suggestive of strep (1 of 4 bottles). POA Leukocytosis h/x CVA DM type II Paroxysmal A-fib Dementia Plan Plan of Care Repeat labs in am Maintain aspiration precautions F/u cultures continue abx Thank you [id number] PCN allergy Add Daptomycin and change to Cefepime - h/o UTI and Enterococcus/Ecoli Attending Co-Sign Attending Co-Sign The patient was seen and interviewed as well as examined at the bedside. The chart was reviewed. The case was discussed. Agree with the plan of care. PAT LUKE APRN Nov 28, 2020 14:26 AUSTEN HINDS MD Nov 28, 2020 14:48
[2020-11-28] MEDS ORDERED: BALS60OI TP (14:32)
[2020-11-28] MEDS ORDERED: POLY17PO29 PO (14:32)
[2020-11-28] MEDS ORDERED: ARIP2TAB3 PO (14:32)
[2020-11-28] MEDS ORDERED: MAGN400O7 PO (14:32)
[2020-11-28] MEDS ORDERED: ACET325T21 PO (14:32)
[2020-11-28] MEDS ORDERED: BACL10TA PO (14:56)
[2020-11-28] MEDS: ACETAMINOPHEN 325 MG TABLET. PO PRN ×2 (15:15→21:50)
[2020-11-28] MEDS: DULoxetine HCL 30 MG CAPSULE.DR PO SCH (15:16)
[2020-11-28] MEDS: SPIRONOLACTONE 25 MG TABLET PO SCH (15:16)
[2020-11-28] MEDS: APIXABAN 5 MG TABLET. PO SCH ×2 (15:16→21:50)
[2020-11-28] MEDS: ARIPiprazole 5 MG TABLET PO SCH (15:16)
[2020-11-28] MEDS: CEFEPIME HCL IV Push 1 GM VIAL. IVP SCH ×2 (15:17→21:52)
--- NOTE | 2020-11-28 15:30 | CONS ---
DATE OF CONSULTATION: 11/28/2020 Nadya Olsen, nurse practitioner, dictating for Dr. Rodríguez Kinney, Infectious Disease. REFERRING PHYSICIAN: Dr. Brown. REASON FOR CONSULTATION: Sepsis. HISTORY OF PRESENT ILLNESS: This patient is a 60-year-old male, [facility] resident with a history of cerebrovascular accident with aphasia and right-sided hemiplegia. He was sent to the ER with altered mental status. He was afebrile with an elevated WBC count of 13,300. Lactic acid was 1.5. Urinalysis was positive for WBCs, leukocyte esterase, bacteria and a few squamous epithelial cells. Blood cultures are now showing gram-positive cocci in pairs and chains suggestive of strep in 1/4 bottles. Chest x-ray showed no acute changes. The patient was started on ceftriaxone. Today, patient is more alert and is indicating that he is hungry. He denies pain, fever or chills. He is incontinent of urine. He has a history of urinary tract infections associated with E. coli (resistant to quinolones, ampicillin, cefuroxime, nitrofurantoin and tetracycline, otherwise susceptible) and Enterococcus faecalis, penicillin and vancomycin susceptible. He denies upset stomach, headache sore throat, or shortness of air. PAST MEDICAL HISTORY: urinary tract infetions associated with E. coli and E. faecalis. CVA with aphasia and right-sided hemiplegia. Type 2 diabetes mellitus, paroxysmal atrial fibrillation, hypertension, vitamin D deficiency, skin and nail candidiasis, GERD, history of periapical abscess, constipation, depression, hyperlipidemia and heart disease. Vascular dementia. PAST SURGICAL HISTORY: No recent surgeries reported. SOCIAL HISTORY: senior care resident. He is a former smoker. ALLERGIES: PENICILLIN. MEDICATIONS: Ceftriaxone. Other medications are available and have been reviewed on the OCT. FAMILY HISTORY: Positive for hypertension. REVIEW OF SYSTEMS: Per HPI, otherwise all other review of systems are negative. PHYSICAL EXAMINATION: VITAL SIGNS: Temperature is 98.4, blood pressure 155/85, heart rate 86, respiratory rate 18, pulse oximetry 97% on 2 liters oxygen. GENERAL: The patient is propped up in bed, alert, no apparent distress. HEENT: Pupils equally round. Normal conjunctivae. Oropharynx clear. NECK: Supple. LUNGS: Clear to auscultation. No accessory muscle use. HEART: Normal S1 and S2, irregular. ABDOMEN: Obese, soft, nontender with bowel sounds present. GENITOURINARY: He has a brief on. EXTREMITIES: No gross edema or cyanosis. Mild chronic stasis dermatitis of lower extremities bilaterally and tinea present on the feet. SKIN: Warm to touch. No signs of rash. NEUROLOGIC: Alert. He is able to answer a few simple questions appropriately. He has right-sided weakness. Peripheral IV looks okay. LABORATORY DATA: On admission: WBC 13.3, hemoglobin 13.9, platelets 371,000. Creatinine 1.3, BUN 16, sodium 140, potassium 4.3, total bilirubin 0.5, AST 17, ALT 35. Creatinine kinase 102, albumin 3.1, lactic acid 1.5. Troponin less than 0.017. BNP 143. Urine toxicology negative. Urinalysis and blood cultures per HPI. Abdominal/pelvic CT showed no acute abnormality. Mild fatty infiltration of the liver. Small low density focus in the left lobe of the liver measuring about [address] showed a large chronic left middle cerebral artery territory infarct, no acute intracranial findings. Chest x-ray showed mild cardiomegaly. ASSESSMENT: 1. Urinary tract infection 11/27. 2. Bacteremia with gram-positive cocci in chains suggestive of strep (1/4 bottles), 11/27. 3. Leukocytosis. 4. PENICILLIN ALLERGY. 5. History of cerebrovascular accident. 6. Diabetes mellitus type 2. 7. Paroxysmal atrial fibrillation. 8. Dementia. PLAN: 1. Recommend daptomycin and cefepime. 2. Follow up on cultures results. 3. Monitor WBC trend and temperature. 3. Maintain aspiration precautions. 4. Repeat labs in the morning. 5. Supportive care. 6. Discussed with nursing. Thank you, Dr. Brown, for asking us to participate in this patient's care. Should you have further questions or concerns, please call. The patient was seen, examined and plan of care implemented by Dr. Rodríguez Kinney. ROLAND/KARMEN/SAM DR: ROLAND/ronaldo TID: [id number] MTDD
[2020-11-28 16:35] VITALS: BP 149/84
--- NOTE | 2020-11-28 16:45 | NUR ---
The patient, MEL OSORIO, 60 y/o, M admitted by HARINDER GRANT III, DO, was given written information regarding hospital policies, unit procedures and contact persons. Valuables were checked and and left in drawer at bedside. Patient has a history of CVA from 2018 causing aphasia and right sided deficit. These are not new symptoms therefore not requiring stroke protocol. Patient is not able to answer questions and can only respond yes/no. Patient does have a pressure wound on his coccyx and testicles. Pictures taken and placed in chart.
[2020-11-28] MEDS ORDERED: INSULIN LISPRO 300 UNITS/3 ML VIAL. SQ ONE ×2 (17:15→20:30)
[2020-11-28] MEDS: DAPTOmycin (GENERIC) IVPB 550 MG in IV NORMAL SALINE 50ML 50 ML IV SCH (17:50)
[2020-11-28] MEDS: CARVEDILOL 6.25 MG TABLET. PO SCH (17:51)
[2020-11-28 19:45] VITALS: BP 119/69
[2020-11-28] MEDS: ATORVASTATIN CALCIUM 40 MG TABLET. PO SCH (21:49)
[2020-11-28] MEDS: MIRTAZAPINE 15 MG TABLET PO SCH (21:50)
[2020-11-28] MEDS: INSULIN GLARGINE SYRINGE. SQ SCH (21:52)
[2020-11-28 22:45] VITALS: BP 148/75
[2020-11-29] MEDS: IV NORMAL SALINE 1000ML BAG 1,000 ML IV SCH ×3 (02:38→21:51)
[2020-11-29 03:35] VITALS: BP 154/77
[2020-11-29] MEDS: CEFEPIME HCL IV Push 1 GM VIAL. IVP SCH ×3 (06:06→21:16)
[2020-11-29 07:00] VITALS: BP 159/89
[2020-11-29 07:32] LABS: BASO # 0.1 x10^3/uL (0.0-0.2); BASO % 1 % (0-3); EOS # 0.4 x10^3/uL (0.0-0.7); EOS % 4 % (0-3); HEMATOCRIT 38.9 % (39.0-53.0); HEMOGLOBIN 12.8 g/dL (13.0-17.5); LYMPH # 1.8 x10^3/uL (1.0-4.8); LYMPH % 19 % (24-48); MEAN CORPUSCULAR HEMOGLOBIN 28 pg (25-35); MEAN CORPUSCULAR HGB CONC 33 g/dL (31-37); MEAN CORPUSCULAR VOLUME 83 fL (79-100); MONO # 0.7 x10^3/uL (0.0-1.1); MONO % 7 % (0-9); NEUT # 6.6 x10^3/uL (1.8-7.7); NEUT % 69 % (31-73); PLATELET COUNT 318 x10^3/uL (140-400); RED BLOOD COUNT 4.67 x10^6/uL (4.30-5.70); RED CELL DISTRIBUTION WIDTH 16.1 % (11.5-14.5); WHITE BLOOD COUNT 9.6 x10^3/uL (4.0-11.0)
[2020-11-29 07:52] LABS: CALCIUM 8.7 mg/dL (8.5-10.1); POTASSIUM 4.1 mmol/L (3.5-5.1)
[2020-11-29] MEDS ORDERED: PERFLUTREN PROTEIN-A MICROSPHR 0.22 MG/ML 3 ML VIAL. IV ONE ×2 (07:52→10:15)
[2020-11-29] MEDS: IPRATRPIUM/ALBUTEROL 0.5/2.5MG 3 ML NEBU. NEB SCH ×4 (08:29→20:00)
[2020-11-29] MEDS: CARVEDILOL 6.25 MG TABLET. PO SCH ×2 (08:32→17:53)
[2020-11-29] MEDS: INSULIN LISPRO 300 UNITS/3 ML VIAL. SQ SCH ×6 (08:41→17:00)
--- NOTE | 2020-11-29 09:07 | PDOC ---
Infectious Disease Note Subjective: Subjective Patient sleepy but arousable, without complaints Vital Signs: Vital Signs Vital Signs Date Time Temp Pulse Resp B/P (MAP) Pulse Ox O2 Delivery O2 Flow Rate FiO2 11/29/20 08:32 74 154/77 11/29/20 08:30 95 Room Air 11/29/20 03:35 98.0 18 98.0 11/28/20 07:27 2.0 Physical Exam: PHYSICAL EXAM GENERAL: The patient is propped up in bed, alert, no apparent distress. HEENT: Pupils equally round. Normal conjunctivae. Oropharynx clear. NECK: Supple. LUNGS: Clear to auscultation. No accessory muscle use. HEART: Normal S1 and S2, irregular. ABDOMEN: Obese, soft, nontender with bowel sounds present. GENITOURINARY: He has a brief on. EXTREMITIES: No gross edema or cyanosis. Mild chronic stasis dermatitis of lower extremities bilaterally and tinea present on the feet. SKIN: Warm to touch. No signs of rash. NEUROLOGIC: Alert. He is able to answer a few simple questions appropriately. He has right-sided weakness. Peripheral IV looks okay. Medications: Inpatient Meds: Medications reviewed. Labs: Lab Laboratory Tests Test 11/28/20 13:19 11/28/20 16:39 11/28/20 19:11 11/29/20 00:38 Glucose (Fingerstick) 467 mg/dL (70-99) 519 mg/dL (70-99) 449 mg/dL (70-99) 312 mg/dL (70-99) Test 11/29/20 06:15 11/29/20 06:35 11/29/20 07:56 White Blood Count 9.6 x10^3/uL (4.0-11.0) Red Blood Count 4.67 x10^6/uL (4.30-5.70) Hemoglobin 12.8 g/dL (13.0-17.5) Hematocrit 38.9 % (39.0-53.0) Mean Corpuscular Volume 83 fL (79-100) Mean Corpuscular Hemoglobin 28 pg (25-35) Mean Corpuscular Hemoglobin Concent 33 g/dL (31-37) Red Cell Distribution Width 16.1 % (11.5-14.5) Platelet Count 318 x10^3/uL (140-400) Neutrophils (%) (Auto) 69 % (31-73) Lymphocytes (%) (Auto) 19 % (24-48) Monocytes (%) (Auto) 7 % (0-9) Eosinophils (%) (Auto) 4 % (0-3) Basophils (%) (Auto) 1 % (0-3) Neutrophils # (Auto) 6.6 x10^3/uL (1.8-7.7) Lymphocytes # (Auto) 1.8 x10^3/uL (1.0-4.8) Monocytes # (Auto) 0.7 x10^3/uL (0.0-1.1) Eosinophils # (Auto) 0.4 x10^3/uL (0.0-0.7) Basophils # (Auto) 0.1 x10^3/uL (0.0-0.2) Sodium Level 138 mmol/L (136-145) Potassium Level 4.1 mmol/L (3.5-5.1) Chloride Level 103 mmol/L (98-107) Carbon Dioxide Level 25 mmol/L (21-32) Anion Gap 10 (6-14) Blood Urea Nitrogen 17 mg/dL (8-26) Creatinine 1.0 mg/dL (0.7-1.3) Estimated GFR (Cockcroft-Gault) 76.0 Glucose Level 318 mg/dL (70-99) Calcium Level 8.7 mg/dL (8.5-10.1) Glucose (Fingerstick) 346 mg/dL (70-99) Objective: Assessment: 1. Urinary tract infection 11/27. 2. Bacteremia with gram-positive cocci in chains suggestive of strep (1/4 bottles), 11/27. 3. Leukocytosis. 4. PENICILLIN ALLERGY. 5. History of cerebrovascular accident. 6. Diabetes mellitus type 2. 7. Paroxysmal atrial fibrillation. 8. Dementia. 9. Abnormal CT abdomen and pelvis revealing liver lesion 2 cm unknown etiology Plan: Plan of Care Daptomycin and Cefepime Follow-up GPC in blood culture Follow-up labs and cultures Supportive care Maintain aspiration precautions. Discussed with nursing. JENNIFER CONDE MD Nov 29, 2020 09:07
[2020-11-29] MEDS: INSULIN GLARGINE SYRINGE. SQ SCH ×2 (09:43→21:15)
[2020-11-29] MEDS: ASPIRIN CHEWABLE 81 MG TABLET. PO SCH (09:50)
[2020-11-29] MEDS: APIXABAN 5 MG TABLET. PO SCH ×2 (09:50→21:13)
[2020-11-29] MEDS: DULoxetine HCL 30 MG CAPSULE.DR PO SCH (09:50)
[2020-11-29] MEDS: NEOMY/BACITR/POLYMYXIN OINT PACKET. TP SCH (09:50)
[2020-11-29] MEDS: SPIRONOLACTONE 25 MG TABLET PO SCH (09:51)
[2020-11-29] MEDS: BACLOFEN 10 MG TABLET. PO SCH ×3 (09:51→21:13)
[2020-11-29] MEDS: LACTOBACILLUS RHAMNOSUS GG 1 CAPSULE. PO SCH ×2 (09:51→21:13)
[2020-11-29] MEDS: ARIPiprazole 5 MG TABLET PO SCH (09:52)
--- NOTE | 2020-11-29 10:47 | NUR ---
assumed care at 0930. he is resting in bed. echo being performed. CN/mitigation supervisor is responsible for telemetry. He is on a p500 bed. wound not observed at this time
[2020-11-29 11:00] VITALS: BP 129/90
--- NOTE | 2020-11-29 11:23 | PDOC ---
[employer] PROGRESS NOTE Date of Service DOS: DATE: 11/29/20 TIME: 11:23 Chief Complaint Chief Complaint Acute altered mental status, UTI, glucose uncontrolled, sepsis History of Present Illness History of Present Illness 11/29/20 Patient seen and examined at bedside Chart reviewed Discussed with RN Patient was getting a bedside Echo as we were in the room Culture grew Step Added Daptomycin and replaced Rocephin with Cefepime, per Infectious Disease 11/28/20 60 year old male with a past medical history including hypertension, diabetes, hyperlipidemia, dementia, prior CVA, A. fib presented emergency department for altered mental status. // report from the assisted patient was acting altered and not like himself 11-27 at facility patient oxygen saturation dropped to approximately 81%. The patient is unable to provide any history, just mutters some words now hospitalized for further evaluation. No new focalized motor deficits noted. 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 No acute intracranial findings. started on iv rocephin in ER No acute abnormality of abdomen or pelvis. Normal appendix., ua C/W pyuria WBC 13.3, mild hypotension noted in ER The heart is moderately enlarged on cxr Admitted with sepsis , hypoxia, expect length of stay > 48 hrs Vitals/I&O Vitals/I&O: Vital Signs Date Time Temp Pulse Resp B/P (MAP) Pulse Ox O2 Delivery O2 Flow Rate FiO2 11/29/20 11:00 98.4 87 18 129/90 (103) 97 Room Air 98.4 11/28/20 07:27 2.0 I & O 11/28/20 11/28/20 11/29/20 15:00 23:00 07:00 Intake Total 1200 ml 1150 ml Balance 1200 ml 1150 ml Physical Exam Physical Exam: GENERAL: The patient is propped up in bed, alert, no apparent distress. HEENT: Pupils equally round. Normal conjunctivae. Oropharynx clear. NECK: Supple. LUNGS: Clear to auscultation. No accessory muscle use. HEART: Normal S1 and S2, irregular. ABDOMEN: Obese, soft, nontender with bowel sounds present. GENITOURINARY: He has a brief on. EXTREMITIES: No gross edema or cyanosis. Mild chronic stasis dermatitis of lower extremities bilaterally and tinea present on the feet. SKIN: Warm to touch. No signs of rash. NEUROLOGIC: Alert. He is able to answer a few simple questions appropriately. He has right-sided weakness. Peripheral IV looks okay. General: Cooperative, No acute distress Lungs: Clear Abdomen: Normal bowel sounds, Soft, Other (CERY OBESE) Extremities: No cyanosis Skin: No rashes Labs Labs: Laboratory Tests Test 11/28/20 13:19 11/28/20 16:39 11/28/20 19:11 11/29/20 00:38 Glucose (Fingerstick) 467 mg/dL (70-99) 519 mg/dL (70-99) 449 mg/dL (70-99) 312 mg/dL (70-99) Test 11/29/20 06:15 11/29/20 06:35 11/29/20 07:56 White Blood Count 9.6 x10^3/uL (4.0-11.0) Red Blood Count 4.67 x10^6/uL (4.30-5.70) Hemoglobin 12.8 g/dL (13.0-17.5) Hematocrit 38.9 % (39.0-53.0) Mean Corpuscular Volume 83 fL (79-100) Mean Corpuscular Hemoglobin 28 pg (25-35) Mean Corpuscular Hemoglobin Concent 33 g/dL (31-37) Red Cell Distribution Width 16.1 % (11.5-14.5) Platelet Count 318 x10^3/uL (140-400) Neutrophils (%) (Auto) 69 % (31-73) Lymphocytes (%) (Auto) 19 % (24-48) Monocytes (%) (Auto) 7 % (0-9) Eosinophils (%) (Auto) 4 % (0-3) Basophils (%) (Auto) 1 % (0-3) Neutrophils # (Auto) 6.6 x10^3/uL (1.8-7.7) Lymphocytes # (Auto) 1.8 x10^3/uL (1.0-4.8) Monocytes # (Auto) 0.7 x10^3/uL (0.0-1.1) Eosinophils # (Auto) 0.4 x10^3/uL (0.0-0.7) Basophils # (Auto) 0.1 x10^3/uL (0.0-0.2) Sodium Level 138 mmol/L (136-145) Potassium Level 4.1 mmol/L (3.5-5.1) Chloride Level 103 mmol/L (98-107) Carbon Dioxide Level 25 mmol/L (21-32) Anion Gap 10 (6-14) Blood Urea Nitrogen 17 mg/dL (8-26) Creatinine 1.0 mg/dL (0.7-1.3) Estimated GFR (Cockcroft-Gault) 76.0 Glucose Level 318 mg/dL (70-99) Calcium Level 8.7 mg/dL (8.5-10.1) Glucose (Fingerstick) 346 mg/dL (70-99) Assessment and Plan Assessmemt and Plan Problems Medical Problems: (1) Cardiomegaly Status: Acute (2) Hypoxia Status: Acute (3) Sepsis Status: Acute (4) UTI (urinary tract infection) Status: Acute Assessment Sepsis UTI Hypoxia Hypertension Atrial Fibrillation Plan Cardiac monitoring Continue antibiotics per infectious disease Continue home medications PT/OT DVT Prophylaxis Full Code Advance Care Planning: Total time spent [id number] with patient greater than 16 minutes in discussion with goals of care, comfort care, end-of-life care, pain management, code status Comment Review of Relevant I have reviewed the following items dg (where applicable) has been applied. Medications: Current Medications Medications (Trade) Dose Ordered Sig/Judi Route PRN Reason Start Time Stop Time Status Last Admin Dose Admin Ceftriaxone Sodium (Rocephin) 1 gm Q24H IVP 11/28/20 12:00 11/28/20 14:45 DC 11/28/20 13:52 Sodium Chloride 1,000 ml @ 100 mls/hr Q10H IV 11/28/20 12:15 11/29/20 02:38 Acetaminophen (Tylenol) 650 mg PRN Q4HRS PRN PO TEMP OVER 100.4F OR MILD PAIN 11/28/20 12:15 11/28/20 21:50 Albuterol/ Ipratropium (Duoneb) 3 ml Q4H NEB 11/28/20 12:15 11/28/20 19:40 DC 11/28/20 16:15 Apixaban (Eliquis) 5 mg BID PO 11/28/20 13:00 11/29/20 09:50 Aripiprazole (Abilify) 2.5 mg DAILY PO 11/28/20 13:00 11/29/20 09:52 Aspirin (Aspirin Chewable) 81 mg DAILY PO 11/28/20 13:00 11/29/20 09:50 Atorvastatin Calcium (Lipitor) 40 mg QHS PO 11/28/20 21:00 11/28/20 21:49 Baclofen (Lioresal) 10 mg TID PO 11/28/20 14:00 11/29/20 09:51 Carvedilol (Coreg) 6.25 mg BIDWMEALS PO 11/28/20 17:00 11/29/20 08:32 Mirtazapine (Remeron) 15 mg HS PO 11/28/20 21:00 11/28/20 21:50 Spironolactone (Aldactone) 25 mg DAILY PO 11/28/20 13:00 11/29/20 09:51 Duloxetine HCl (Cymbalta) 60 mg DAILY PO 11/28/20 13:00 11/29/20 09:50 Neomycin/ Polymyxin/ Bacitracin (Triple Antibiotic Ointment) 1 pkt DAILY TP 11/28/20 13:00 11/29/20 09:50 Insulin Human Lispro (HumaLOG) 0-7 UNITS TIDWMEALS SQ 11/28/20 14:00 11/29/20 08:41 Daptomycin 550 mg/ Sodium Chloride 50 ml @ 100 mls/hr Q24H IV 11/28/20 17:00 11/28/20 17:50 Cefepime HCl (Maxipime) 1 gm Q8HRS IVP 11/28/20 15:00 11/29/20 06:06 Insulin Human Lispro (HumaLOG) 30 units 1X ONCE SQ 11/28/20 17:15 11/28/20 17:16 DC 11/28/20 17:56 Albuterol/ Ipratropium (Duoneb) 3 ml RTQID NEB 11/28/20 21:00 11/29/20 08:29 Insulin Human Lispro (HumaLOG) 10 units 1X ONCE SQ 11/28/20 20:30 11/28/20 20:34 DC 11/28/20 21:51 Insulin Glargine (Lantus Syringe) 10 unit BID SQ 11/28/20 21:00 11/29/20 09:43 Lactobacillus Rhamnosus (Culturelle) 1 cap BID PO 11/29/20 09:00 11/29/20 09:51 Insulin Human Lispro (HumaLOG) 10 units TIDWMEALS SQ 11/29/20 09:00 11/29/20 09:45 Perflutren Protein Type A Microsphe (Optison) 0.66 mg 1X ONCE IV 11/29/20 10:15 11/29/20 10:16 DC 11/29/20 10:10 Justifications for Admission Other Justification SEPSIS, ACUTE METABOLIC ENCEPHALOPATHY HARINDER GRANT III DO Nov 29, 2020 11:23
--- NOTE | 2020-11-29 12:00 | NUR ---
inc of urine and stool. rectal area cleansed. scrotum and micheline rectal area reddened. Calmoseptine applied. Neosporin applied to wound bed with new Aquacel foam.
[2020-11-29] MEDS: ACETAMINOPHEN 325 MG TABLET. PO PRN ×2 (13:11→17:51)
--- NOTE | 2020-11-29 13:34 | CARD ---
MR#: [id number] Date of Study: 11/29/2020 Ordering Physician: PATY MCCARTHY, Referring Physician: PATY MCCARTHY Tech: Shelby Peterson [facility] APPROVED REPORT EXAM: Two-dimensional and M-mode echocardiogram with Doppler and color Doppler. Other Information Quality : Technically LimitedHR: 91bpm Rhythm : NSRTechnically limited study due to body habitus, unable to position INDICATION CVA/TIA Congestive Heart Failure Echo Enhancing Agent Indication: Endocardial border delineation Agent/Amount Used: Optison 3mL RISK FACTORS Hypertension Obesity 2D DIMENSIONS Left Atrium(2D)4.0 (1.6-4.0cm)IVSd1.2 (0.7-1.1cm) Aortic Root(2D)4.6 (2.0-3.7cm)LVDd5.5 (3.9-5.9cm) LVOT Diameter2.6 (1.8-2.4cm)PWd1.2 (0.7-1.1cm) LVDs3.7 (2.5-4.0cm)FS (%) 33.3 % SV90.2 mlLVEF(%)61.3 (>50%) Aortic Valve AoV Peak Jeffrey.136.9cm/sAoV VTI24.2cm AO Peak GR.7.5mmHgLVOT Peak Jeffrey.90.7cm/s AO Mean GR.4mmHgAVA (VMAX)3.43cm2 Mitral Valve MV E Pvrnxfzn83.3cm/sMV DECEL FOQZ016le MV A Myxaeatg47.7cm/sE/A Ratio2.1 LEFT VENTRICLE The left ventricle is normal size. There is borderline to mild concentric left ventricular hypertroph y. The left ventricular systolic function is low normal. The ejection fraction is 50%. Abnormal septa l motion probably due to conduction abnormality. Transmitral Doppler flow pattern is Grade II-pseudon ormal filling dynamics. RIGHT VENTRICLE The right ventricle is normal size. There is normal right ventricular wall thickness. The right ventr icular systolic function is normal. ATRIA The left atrium is mildly dilated. The right atrium size is normal. The interatrial septum is intact with no evidence for an atrial septal defect or patent foramen ovale as noted on 2-D or Doppler imagi ng. AORTIC VALVE The aortic valve is normal in structure and function. Doppler and Color Flow revealed no significant aortic regurgitation. There is no significant aortic valvular stenosis. MITRAL VALVE The mitral valve is normal in structure and function. There is no evidence of mitral valve prolapse. There is no mitral valve stenosis. Doppler and Color Flow revealed no mitral valve regurgitation note d. TRICUSPID VALVE The tricuspid valve is normal in structure and function. Doppler and Color Flow revealed no tricuspid valve regurgitation noted. There is no tricuspid valve stenosis. PULMONIC VALVE The pulmonary valve is normal in structure and function. Doppler and Color Flow revealed no pulmonic valvular regurgitation. GREAT VESSELS The aortic root is moderate to severely enlarged at 4.6 cm. The ascending aorta is moderately dilated . Due to poor image quality, the IVC could not be assessed. PERICARDIAL EFFUSION There is no evidence of significant pericardial effusion. Critical Notification Critical Value: Yes <Conclusion> Technically difficult study. Optison echo contrast used for better definition. The left ventricular systolic function is low normal. The ejection fraction is 50%. Abnormal septal motion probably due to conduction abnormality. The aortic root is moderate to severely enlarged at 4.6 cm. There is no evidence of significant pericardial effusion. Signed by : Pato Rosado, Electronically Approved : 11/29/2020 13:34:10
[2020-11-29 15:00] VITALS: BP 123/71
--- NOTE | 2020-11-29 15:33 | NUR ---
SW following. Discussed with RN. EVELYNE attempting to verify if pt is from [facility], room air, soft mechanical diet. PT/OT/ST ordered. PT recommending LTC. Wound care and ID following. EVELYNE will continue to follow.
[2020-11-29] MEDS ORDERED: INSULIN LISPRO 300 UNITS/3 ML VIAL. SQ ONE (17:45)
[2020-11-29] MEDS: DAPTOmycin (GENERIC) IVPB 550 MG in IV NORMAL SALINE 50ML 50 ML IV SCH (17:50)
--- NOTE | 2020-11-29 18:08 | NUR ---
Wound/Ostomy Care Wound Type/Assessment: wound care consult for coccyx wound. Pt has IAD to right buttock and micheline-rectal area from incontinence. 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 Treatment Recommendations/Plan: Cleanse area and apply barrier cream BID and PRN. Offload area as much as possible. Education provided: PU prevention, WC POC Offloading surface/device: TQ2H, pillows Recommended Referrals/Tests: na Discharge Recommendations for dressings: continue as above noted.
[2020-11-29 19:25] VITALS: BP 144/86
[2020-11-29] MEDS: ATORVASTATIN CALCIUM 40 MG TABLET. PO SCH (21:13)
[2020-11-29] MEDS: MIRTAZAPINE 15 MG TABLET PO SCH (21:13)
[2020-11-29 23:15] VITALS: BP 142/89
[2020-11-30 03:35] VITALS: BP 153/74
[2020-11-30] MEDS: CEFEPIME HCL IV Push 1 GM VIAL. IVP SCH (06:34)
[2020-11-30 07:00] VITALS: BP 177/107
[2020-11-30] MEDS: IPRATRPIUM/ALBUTEROL 0.5/2.5MG 3 ML NEBU. NEB SCH ×4 (07:48→20:32)
[2020-11-30] MEDS ORDERED: INSULIN LISPRO 300 UNITS/3 ML VIAL. SQ SCH (08:00)
[2020-11-30] MEDS: LACTOBACILLUS RHAMNOSUS GG 1 CAPSULE. PO SCH ×2 (08:33→21:19)
[2020-11-30] MEDS: DULoxetine HCL 30 MG CAPSULE.DR PO SCH (08:33)
[2020-11-30] MEDS: ARIPiprazole 5 MG TABLET PO SCH (08:33)
[2020-11-30] MEDS: IV NORMAL SALINE 1000ML BAG 1,000 ML IV SCH ×3 (08:33→22:04)
[2020-11-30] MEDS: ASPIRIN CHEWABLE 81 MG TABLET. PO SCH (08:33)
[2020-11-30] MEDS: NEOMY/BACITR/POLYMYXIN OINT PACKET. TP SCH (08:33)
[2020-11-30] MEDS: APIXABAN 5 MG TABLET. PO SCH ×2 (08:34→21:19)
[2020-11-30] MEDS: SPIRONOLACTONE 25 MG TABLET PO SCH (08:34)
[2020-11-30] MEDS: CARVEDILOL 6.25 MG TABLET. PO SCH ×2 (08:34→17:23)
[2020-11-30] MEDS: BACLOFEN 10 MG TABLET. PO SCH ×3 (08:34→21:19)
[2020-11-30] MEDS: INSULIN LISPRO 300 UNITS/3 ML VIAL. SQ SCH ×7 (08:41→22:00)
--- NOTE | 2020-11-30 09:59 | PDOC ---
Infectious Disease Note Subjective: Subjective Patient without complaints Vital Signs: Vital Signs Vital Signs Date Time Temp Pulse Resp B/P (MAP) Pulse Ox O2 Delivery O2 Flow Rate FiO2 11/30/20 08:34 83 153/74 11/30/20 08:00 Room Air 11/30/20 07:49 95 11/30/20 07:00 97.6 18 97.6 Physical Exam: PHYSICAL EXAM GENERAL: The patient is propped up in bed, alert, no apparent distress. HEENT: Pupils equally round. Normal conjunctivae. Oropharynx clear. NECK: Supple. LUNGS: Clear to auscultation. No accessory muscle use. HEART: Normal S1 and S2, irregular. ABDOMEN: Obese, soft, nontender with bowel sounds present. GENITOURINARY: He has a briefs on. EXTREMITIES: No gross edema or cyanosis. Mild chronic stasis dermatitis of lower extremities bilaterally and tinea present on the feet. SKIN: Warm to touch. No signs of rash. NEUROLOGIC: Alert. He is able to answer a few simple questions appropriately. He has right-sided weakness. Peripheral IV looks okay. Medications: Inpatient Meds: Medications reviewed. Labs: Lab Laboratory Tests Test 11/29/20 11:25 11/29/20 17:10 11/29/20 20:55 11/30/20 07:57 Glucose (Fingerstick) 391 mg/dL (70-99) 403 mg/dL (70-99) 390 mg/dL (70-99) 307 mg/dL (70-99) Objective: Assessment: 1. Urinary tract infection 11/27. Grp B stre[ 2. Enterococcus faecalis bacteremia (1/4 bottles), 11/27. 3. Leukocytosis. 4. PENICILLIN ALLERGY. 5. History of cerebrovascular accident. 6. Diabetes mellitus type 2. 7. Paroxysmal atrial fibrillation. 8. Dementia. 9. Abnormal CT abdomen and pelvis revealing liver lesion 2 cm unknown etiology Plan: Plan of Care Continue daptomycin DC cefepime Start ceftriaxone Follow-up labs and cultures Follow-up repeat blood cultures November 28, 2020 neg so far Supportive care Maintain aspiration precautions. JENNIFER CONDE MD Nov 30, 2020 09:59
[2020-11-30] MEDS ORDERED: INSULIN GLARGINE SYRINGE. SQ SCH (10:00)
[2020-11-30 11:00] VITALS: BP 168/83
--- NOTE | 2020-11-30 11:31 | PDOC ---
[employer] PROGRESS NOTE Date of Service DOS: DATE: 11/30/20 TIME: 11:29 Chief Complaint Chief Complaint Acute altered mental status, UTI, glucose uncontrolled, sepsis History of Present Illness History of Present Illness 11/30/20 Patient seen and examined at bedside Chart reviewed Discussed with RN Discussed with case management Glucose still elevated, increased Lantus to 15 units BID BP still elevated, added Amlodipine 10mg PO daily Venous stasis lesions present on bilateral LE 11/29/20 Patient seen and examined at bedside Chart reviewed Discussed with RN Patient was getting a bedside Echo as we were in the room Culture grew Step Added Daptomycin and replaced Rocephin with Cefepime, per Infectious Disease 11/28/20 60 year old male with a past medical history including hypertension, diabetes, hyperlipidemia, dementia, prior CVA, A. fib presented emergency department for altered mental status. // report from the [facility]pc patient was acting altered and not like himself 11-27 at facility patient oxygen saturation dropped to approximately 81%. The patient is unable to provide any history, just mutters some words now hospitalized for further evaluation. No new focalized motor deficits noted. 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 No acute intracranial findings. started on iv rocephin in ER No acute abnormality of abdomen or pelvis. Normal appendix., ua C/W pyuria WBC 13.3, mild hypotension noted in ER The heart is moderately enlarged on cxr Admitted with sepsis , hypoxia, expect length of stay > 48 hrs Vitals/I&O Vitals/I&O: Vital Signs Date Time Temp Pulse Resp B/P (MAP) Pulse Ox O2 Delivery O2 Flow Rate FiO2 11/30/20 10:01 85 177/107 11/30/20 08:00 Room Air 11/30/20 07:49 95 11/30/20 07:00 97.6 18 97.6 I & O 11/29/20 11/29/20 11/30/20 15:00 23:00 07:00 Intake Total 1500 ml 1250 ml 400 ml Balance 1500 ml 1250 ml 400 ml Physical Exam Physical Exam: GENERAL: The patient is propped up in bed, alert, no apparent distress. HEENT: Pupils equally round. Normal conjunctivae. Oropharynx clear. NECK: Supple. LUNGS: Clear to auscultation. No accessory muscle use. HEART: Normal S1 and S2, irregular. ABDOMEN: Obese, soft, nontender with bowel sounds present. GENITOURINARY: He has a briefs on. EXTREMITIES: No gross edema or cyanosis. Mild chronic stasis dermatitis of lower extremities bilaterally and tinea present on the feet. SKIN: Warm to touch. No signs of rash. NEUROLOGIC: Alert. He is able to answer a few simple questions appropriately. He has right-sided weakness. Peripheral IV looks okay. General: Cooperative, No acute distress Lungs: Clear Abdomen: Normal bowel sounds, Soft, Other (CERY OBESE) Extremities: No cyanosis Skin: No rashes Labs Labs: Laboratory Tests Test 11/29/20 17:10 11/29/20 20:55 11/30/20 07:57 Glucose (Fingerstick) 403 mg/dL (70-99) 390 mg/dL (70-99) 307 mg/dL (70-99) Assessment and Plan Assessmemt and Plan Problems Medical Problems: (1) Cardiomegaly Status: Acute (2) Hypoxia Status: Acute (3) Sepsis Status: Acute (4) UTI (urinary tract infection) Status: Acute Assessment Sepsis UTI Hypoxia Hypertension Atrial Fibrillation Plan Cardiac monitoring Increased Lantus to 15mg BID Added Amlodipine 10mg PO daily Continue IV antibiotics per infectious disease Continue home medications PT/OT DVT Prophylaxis Full Code Advance Care Planning: Total time spent [id number] with patient greater than 16 minutes in discussion with goals of care, comfort care, end-of-life care, pain management, code status Comment Review of Relevant I have reviewed the following items dg (where applicable) has been applied. Medications: Current Medications Medications (Trade) Dose Ordered Sig/Judi Route PRN Reason Start Time Stop Time Status Last Admin Dose Admin Insulin Human Lispro (HumaLOG) 27 units 1X ONCE SQ 11/29/20 17:45 11/29/20 17:48 DC 11/29/20 17:56 Insulin Human Lispro (HumaLOG) 0-9 UNITS TIDWMEALS SQ 11/30/20 08:00 11/30/20 08:41 Amlodipine Besylate (Norvasc) 10 mg DAILY PO 11/30/20 10:00 11/30/20 10:01 Insulin Glargine (Lantus Syringe) 15 unit BID SQ 11/30/20 10:00 11/30/20 10:03 Justifications for Admission Other Justification SEPSIS, ACUTE METABOLIC ENCEPHALOPATHY HARINDER GRANT III DO Nov 30, 2020 11:31
[2020-11-30] MEDS: ACETAMINOPHEN 325 MG TABLET. PO PRN ×2 (12:09→21:19)
[2020-11-30] MEDS: cefTRIAXone IV Push 2 GM VIAL. IVP SCH (13:05)
[2020-11-30 15:00] VITALS: BP 154/85
[2020-11-30] MEDS: MULTIVITAMIN with MINERAL TABLET. PO SCH (15:05)
[2020-11-30] MEDS: DAPTOmycin (GENERIC) IVPB 550 MG in IV NORMAL SALINE 50ML 50 ML IV SCH (17:23)
[2020-11-30 19:45] VITALS: BP 142/86
[2020-11-30] MEDS: MIRTAZAPINE 15 MG TABLET PO SCH (21:19)
[2020-11-30] MEDS: ATORVASTATIN CALCIUM 40 MG TABLET. PO SCH (21:19)
[2020-11-30] MEDS ORDERED: INSULIN LISPRO 300 UNITS/3 ML VIAL. SQ ONE (22:00)
[2020-11-30] MEDS: INSULIN GLARGINE SYRINGE. SQ SCH (22:04)
[2020-11-30 22:20] VITALS: BP 133/75
[2020-12-01 03:45] VITALS: BP 133/77
[2020-12-01 07:00] VITALS: BP 166/100
[2020-12-01] MEDS: IPRATRPIUM/ALBUTEROL 0.5/2.5MG 3 ML NEBU. NEB SCH ×4 (07:51→21:01)
--- NOTE | 2020-12-01 08:21 | PDOC ---
Infectious Disease Note Subjective: Subjective Patient without complaints Vital Signs: Vital Signs Vital Signs Date Time Temp Pulse Resp B/P (MAP) Pulse Ox O2 Delivery O2 Flow Rate FiO2 12/01/20 07:51 95 Room Air 12/01/20 03:45 97.8 80 18 133/77 (95) 97.8 Physical Exam: PHYSICAL EXAM GENERAL: The patient is propped up in bed, alert, no apparent distress. HEENT: Pupils equally round. Normal conjunctivae. Oropharynx clear. NECK: Supple. LUNGS: Clear to auscultation. No accessory muscle use. HEART: Normal S1 and S2, irregular. ABDOMEN: Obese, soft, nontender with bowel sounds present. GENITOURINARY: He has a briefs on. EXTREMITIES: No gross edema or cyanosis. Mild chronic stasis dermatitis of lower extremities bilaterally and tinea present on the feet. SKIN: Warm to touch. No signs of rash. NEUROLOGIC: Alert. He is able to answer a few simple questions appropriately. He has right-sided weakness. Peripheral IV looks okay. Medications: Inpatient Meds: Medications reviewed. Labs: Lab Laboratory Tests Test 11/30/20 12:03 11/30/20 17:13 11/30/20 21:05 12/01/20 08:14 Glucose (Fingerstick) 349 mg/dL (70-99) 314 mg/dL (70-99) 306 mg/dL (70-99) 287 mg/dL (70-99) Objective: Assessment: 1. Urinary tract infection 11/27. Grp B stre[ 2. Enterococcus faecalis bacteremia (1/4 bottles), 11/27. 3. Leukocytosis. 4. PENICILLIN ALLERGY. 5. History of cerebrovascular accident. 6. Diabetes mellitus type 2. 7. Paroxysmal atrial fibrillation. 8. Dementia. 9. Abnormal CT abdomen and pelvis revealing liver lesion 2 cm unknown etiology Plan: Plan of Care Continue ceftriaxone Continue daptomycin Follow-up labs and cultures Follow-up repeat blood cultures November 28, 2020 neg so far Hopefully will be able to dc home tomorrow if repeat bc remain neg Supportive care Maintain aspiration precautions. Discussed with nursing staff JENNIFER CONDE MD Dec 01, 2020 08:21
[2020-12-01] MEDS: ARIPiprazole 5 MG TABLET PO SCH (08:33)
[2020-12-01] MEDS: ASPIRIN CHEWABLE 81 MG TABLET. PO SCH (08:33)
[2020-12-01] MEDS: MULTIVITAMIN with MINERAL TABLET. PO SCH (08:33)
[2020-12-01] MEDS: LACTOBACILLUS RHAMNOSUS GG 1 CAPSULE. PO SCH ×2 (08:34→21:23)
[2020-12-01] MEDS: BACLOFEN 10 MG TABLET. PO SCH ×3 (08:34→21:23)
[2020-12-01] MEDS: DULoxetine HCL 30 MG CAPSULE.DR PO SCH (08:34)
[2020-12-01] MEDS: APIXABAN 5 MG TABLET. PO SCH ×2 (08:35→21:23)
[2020-12-01] MEDS: SPIRONOLACTONE 25 MG TABLET PO SCH (08:35)
[2020-12-01] MEDS: NEOMY/BACITR/POLYMYXIN OINT PACKET. TP SCH (08:35)
[2020-12-01] MEDS: ACETAMINOPHEN 325 MG TABLET. PO PRN (08:35)
[2020-12-01] MEDS: CARVEDILOL 6.25 MG TABLET. PO SCH ×2 (08:36→18:07)
[2020-12-01] MEDS: INSULIN LISPRO 300 UNITS/3 ML VIAL. SQ SCH ×7 (08:44→21:32)
[2020-12-01] MEDS: IV NORMAL SALINE 1000ML BAG 1,000 ML IV SCH ×2 (09:08→21:23)
[2020-12-01] MEDS: INSULIN GLARGINE SYRINGE. SQ SCH ×2 (09:12→21:33)
--- NOTE | 2020-12-01 10:38 | PDOC ---
[facility] PROGRESS NOTE Date of Service DOS: DATE: 12/01/20 TIME: 10:36 Chief Complaint Chief Complaint Acute altered mental status, UTI, glucose uncontrolled, sepsis 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, cerebral infarct, disabled post stroke, post stroke syndrome obese, BMI 41 History of Present Illness History of Present Illness 12/01, some pause on tele, afib, will check EKG cont current will DC back to [place], maybe after cx back tomrrow, cont current pt seen room 208 11/30/20 Patient seen and examined at bedside Chart reviewed Discussed with RN Discussed with case management Glucose still elevated, increased Lantus to 15 units BID BP still elevated, added Amlodipine 10mg PO daily Venous stasis lesions present on bilateral LE 11/29/20 Patient seen and examined at bedside Chart reviewed Discussed with RN Patient was getting a bedside Echo as we were in the room Culture grew Step Added Daptomycin and replaced Rocephin with Cefepime, per Infectious Disease 11/28/20 60 year old male with a past medical history including hypertension, diabetes, hyperlipidemia, dementia, prior CVA, A. fib presented emergency department for altered mental status. // report from the residential patient was acting altered and not like himself 11-27 at facility patient oxygen saturation dropped to approximately 81%. The patient is unable to provide any history, just mutters some words now hospitalized for further evaluation. No new focalized motor deficits noted. 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 No acute intrac ranial findings. started on iv rocephin in ER No acute abnormality of abdomen or pelvis. Normal appendix., ua C/W pyuria WBC 13.3, mild hypotension noted in ER The heart is moderately enlarged on cxr Admitted with sepsis , hypoxia, expect length of stay > 48 hrs Vitals/I&O Vitals/I&O: Vital Signs Date Time Temp Pulse Resp B/P (MAP) Pulse Ox O2 Delivery O2 Flow Rate FiO2 12/01/20 08:36 76 166/100 12/01/20 08:10 Room Air 12/01/20 07:51 95 12/01/20 07:00 98.6 20 98.6 I & O 11/30/20 11/30/20 12/01/20 15:00 23:00 07:00 Intake Total 240 ml 318 ml 1000 ml Balance 240 ml 318 ml 1000 ml Physical Exam Physical Exam: GENERAL: The patient is propped up in bed, alert, no apparent distress. HEENT: Pupils equally round. Normal conjunctivae. Oropharynx clear. NECK: Supple. LUNGS: Clear to auscultation. No accessory muscle use. HEART: Normal S1 and S2, irregular. ABDOMEN: Obese, soft, nontender with bowel sounds present. GENITOURINARY: He has a briefs on. EXTREMITIES: No gross edema or cyanosis. Mild chronic stasis dermatitis of lower extremities bilaterally and tinea present on the feet. SKIN: Warm to touch. No signs of rash. NEUROLOGIC: Alert. He is able to answer a few simple questions appropriately. He has right-sided weakness. Peripheral IV looks okay. General: Cooperative, No acute distress Lungs: Clear Abdomen: Normal bowel sounds, Soft, Other (CERY OBESE) Extremities: No cyanosis Skin: No rashes Labs Labs: Laboratory Tests Test 11/30/20 12:03 11/30/20 17:13 11/30/20 21:05 12/01/20 08:14 Glucose (Fingerstick) 349 mg/dL (70-99) 314 mg/dL (70-99) 306 mg/dL (70-99) 287 mg/dL (70-99) Assessment and Plan Assessmemt and Plan Problems Medical Problems: (1) Cardiomegaly Status: Acute (2) Hypoxia Status: Acute (3) Sepsis Status: Acute (4) UTI (urinary tract infection) Status: Acute Comment Review of Relevant I have reviewed the following items dg (where applicable) has been applied. Medications: Current Medications Medications (Trade) Dose Ordered Sig/Judi Route PRN Reason Start Time Stop Time Status Last Admin Dose Admin Ceftriaxone Sodium (Rocephin) 2 gm Q24H IVP 11/30/20 14:00 11/30/20 13:05 Multivitamins (Thera M Plus) 1 tab DAILY PO 11/30/20 15:30 12/01/20 08:33 Insulin Glargine (Lantus Syringe) 22 unit BID SQ 11/30/20 22:00 12/01/20 10:24 DC 12/01/20 09:12 Insulin Human Lispro (HumaLOG) 0-9 UNITS TIDACHC SQ 11/30/20 22:00 4/28/21 08:44 Insulin Human Lispro (HumaLOG) 5 units 1X ONCE SQ 11/30/20 22:00 11/30/20 22:01 DC 11/30/20 22:05 Justifications for Admission Other Justification SEPSIS, ACUTE METABOLIC ENCEPHALOPATHY STEPH LEWIS MD Dec 01, 2020 10:38
[2020-12-01 11:00] VITALS: BP 140/75
[2020-12-01] MEDS: metFORMIN XR 500 MG TAB.ER.24H PO SCH (12:24)
[2020-12-01] MEDS: cefTRIAXone IV Push 2 GM VIAL. IVP SCH (14:02)
[2020-12-01 15:00] VITALS: BP 163/97
[2020-12-01 19:00] VITALS: BP 151/74
[2020-12-01] MEDS: DAPTOmycin (GENERIC) IVPB 550 MG in IV NORMAL SALINE 50ML 50 ML IV SCH (19:04)
[2020-12-01] MEDS: MIRTAZAPINE 15 MG TABLET PO SCH (21:23)
[2020-12-01] MEDS: ATORVASTATIN CALCIUM 40 MG TABLET. PO SCH (21:23)
[2020-12-01 22:44] VITALS: BP 159/80
[2020-12-02 03:35] VITALS: BP 143/78
[2020-12-02 07:00] VITALS: BP 149/94
[2020-12-02] MEDS: metFORMIN XR 500 MG TAB.ER.24H PO SCH (08:36)
[2020-12-02] MEDS: ASPIRIN CHEWABLE 81 MG TABLET. PO SCH (08:36)
[2020-12-02] MEDS: SPIRONOLACTONE 25 MG TABLET PO SCH (08:37)
[2020-12-02] MEDS: MULTIVITAMIN with MINERAL TABLET. PO SCH (08:37)
[2020-12-02] MEDS: DULoxetine HCL 30 MG CAPSULE.DR PO SCH (08:37)
[2020-12-02] MEDS: BACLOFEN 10 MG TABLET. PO SCH ×3 (08:38→21:27)
[2020-12-02] MEDS: ARIPiprazole 5 MG TABLET PO SCH (08:38)
[2020-12-02] MEDS: APIXABAN 5 MG TABLET. PO SCH ×2 (08:38→21:27)
[2020-12-02] MEDS: LACTOBACILLUS RHAMNOSUS GG 1 CAPSULE. PO SCH ×2 (08:38→21:27)
[2020-12-02] MEDS: NEOMY/BACITR/POLYMYXIN OINT PACKET. TP SCH (08:38)
[2020-12-02] MEDS: CARVEDILOL 6.25 MG TABLET. PO SCH ×2 (08:38→17:03)
[2020-12-02] MEDS: INSULIN LISPRO 300 UNITS/3 ML VIAL. SQ SCH ×7 (08:47→21:33)
[2020-12-02] MEDS: IPRATRPIUM/ALBUTEROL 0.5/2.5MG 3 ML NEBU. NEB SCH ×4 (08:48→20:18)
[2020-12-02] MEDS: INSULIN GLARGINE SYRINGE. SQ SCH ×2 (08:59→21:34)
--- NOTE | 2020-12-02 10:05 | PDOC ---
Infectious Disease Note Subjective: Subjective Patient does not feel well this morning Has frequent bowel movements soft but not loose Vital Signs: Vital Signs Vital Signs Date Time Temp Pulse Resp B/P (MAP) Pulse Ox O2 Delivery O2 Flow Rate FiO2 12/02/20 08:49 96 Room Air 12/02/20 08:38 100 149/94 12/02/20 07:00 98.0 20 98.0 Physical Exam: PHYSICAL EXAM GENERAL: The patient is propped up in bed, alert, no apparent distress. HEENT: Pupils equally round. Normal conjunctivae. Oropharynx clear. NECK: Supple. LUNGS: Clear to auscultation. No accessory muscle use. HEART: Normal S1 and S2, irregular. ABDOMEN: Obese, soft, nontender with bowel sounds present. GENITOURINARY: He has a briefs on. EXTREMITIES: No gross edema or cyanosis. Mild chronic stasis dermatitis of lower extremities bilaterally and tinea present on the feet. SKIN: Warm to touch. No signs of rash. NEUROLOGIC: Alert. He is able to answer a few simple questions appropriately. He has right-sided weakness. Peripheral IV looks okay. Medications: Inpatient Meds: Medications reviewed. Labs: Lab Laboratory Tests Test 12/01/20 11:25 12/01/20 17:10 12/01/20 21:25 12/02/20 07:54 Glucose (Fingerstick) 314 mg/dL (70-99) 298 mg/dL (70-99) 346 mg/dL (70-99) 259 mg/dL (70-99) Objective: Assessment: 1. Urinary tract infection 11/27. Grp B stre[ 2. Enterococcus faecalis bacteremia (1/4 bottles), 11/27. 3. Leukocytosis. 4. PENICILLIN ALLERGY. 5. History of cerebrovascular accident. 6. Diabetes mellitus type 2. 7. Paroxysmal atrial fibrillation. 8. Dementia. 9. Abnormal CT abdomen and pelvis revealing liver lesion 2 cm unknown etiology Plan: Plan of Care Continue ceftriaxone Continue daptomycin Follow-up labs and cultures Repeat blood cultures November 28, 2020 order was canceled per discussion with micro lab Will repeat blood cultures today Discussed with nursing staff JENNIFER CONDE MD Dec 02, 2020 10:05
[2020-12-02 11:00] VITALS: BP 167/90
--- NOTE | 2020-12-02 13:56 | PDOC ---
[employer] [facility] PROGRESS NOTE Date of Service DOS: DATE: 12/02/20 TIME: 13:56 Chief Complaint Chief Complaint Acute altered mental status, UTI, glucose uncontrolled, sepsis 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, cerebral infarct, disabled post stroke, post stroke syndrome obese, BMI 41 History of Present Illness History of Present Illness , lookingbetter blood cx repeated today no event, stronger, eating better 12/01, some pause on tele, afib, will check EKG cont current will DC back to [place], maybe after cx back tomrrow, cont current pt seen room 208 11/30/20 Patient seen and examined at bedside Chart reviewed Discussed with RN Discussed with case management Glucose still elevated, increased Lantus to 15 units BID BP still elevated, added Amlodipine 10mg PO daily Venous stasis lesions present on bilateral LE 11/29/20 Patient seen and examined at bedside Chart reviewed Discussed with RN Patient was getting a bedside Echo as we were in the room Culture grew Step Added Daptomycin and replaced Rocephin with Cefepime, per Infectious Disease 11/28/20 60 year old male with a past medical history including hypertension, diabetes, hyperlipidemia, dementia, prior CVA, A. fib presented emergency department for altered mental status. // report from the alf patient was acting altered and not like himself 11-27 at facility patient oxygen saturation dropped to approximately 81%. The patient is unable to provide any history, just mutters some words now hospitalized for further evaluation. No new focalized motor deficits noted. 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 No acute intracranial findings. started on iv rocephin in ER No acute abnormality of abdomen or pelvis. Normal appendix., ua C/W pyuria WBC 13.3, mild hypotension noted in ER The heart is moderately enlarged on cxr Admitted with sepsis , hypoxia, expect length of stay > 48 hrs Vitals/I&O Vitals/I&O: Vital Signs Date Time Temp Pulse Resp B/P (MAP) Pulse Ox O2 Delivery O2 Flow Rate FiO2 12/02/20 12:12 96 Room Air 12/02/20 11:00 98.2 82 22 167/90 (115) 98.2 I & O 12/01/20 12/01/20 12/02/20 15:00 23:00 07:00 Intake Total 850 ml 280 ml 200 ml Balance 850 ml 280 ml 200 ml Physical Exam Physical Exam: GENERAL: The patient is propped up in bed, alert, no apparent distress. HEENT: Pupils equally round. Normal conjunctivae. Oropharynx clear. NECK: Supple. LUNGS: Clear to auscultation. No accessory muscle use. HEART: Normal S1 and S2, irregular. ABDOMEN: Obese, soft, nontender with bowel sounds present. GENITOURINARY: He has a briefs on. EXTREMITIES: No gross edema or cyanosis. Mild chronic stasis dermatitis of lower extremities bilaterally and tinea present on the feet. SKIN: Warm to touch. No signs of rash. NEUROLOGIC: Alert. He is able to answer a few simple questions appropriately. He has right-sided weakness. Peripheral IV looks okay. General: Cooperative, No acute distress Lungs: Clear Abdomen: Normal bowel sounds, Soft, Other (CERY OBESE) Extremities: No cyanosis Skin: No rashes Labs Labs: Laboratory Tests Test 12/01/20 17:10 12/01/20 21:25 12/02/20 07:54 12/02/20 11:37 Glucose (Fingerstick) 298 mg/dL (70-99) 346 mg/dL (70-99) 259 mg/dL (70-99) 304 mg/dL (70-99) Assessment and Plan Assessmemt and Plan Problems Medical Problems: (1) Cardiomegaly Status: Acute (2) Hypoxia Status: Acute (3) Sepsis Status: Acute (4) UTI (urinary tract infection) Status: Acute Comment Review of Relevant I have reviewed the following items dg (where applicable) has been applied. Medications: Current Medications Medications (Trade) Dose Ordered Sig/Judi Route PRN Reason Start Time Stop Time Status Last Admin Dose Admin Insulin Glargine (Lantus Syringe) 25 unit BID SQ 12/01/20 21:00 12/02/20 08:59 Justifications for Admission Other Justification SEPSIS, ACUTE METABOLIC ENCEPHALOPATHY STEPH LEWIS MD Dec 02, 2020 13:56
--- NOTE | 2020-12-02 13:57 | NUR ---
EVELYNE continuing to follow for dc plans. Chart reviewed. 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 Plan for pt to return when medically stable. Discussed with Dr. Amaya.
[2020-12-02] MEDS: IV NORMAL SALINE 1000ML BAG 1,000 ML IV SCH ×2 (14:00→16:15)
[2020-12-02] MEDS: cefTRIAXone IV Push 2 GM VIAL. IVP SCH (14:18)
[2020-12-02 15:00] VITALS: BP 174/85
[2020-12-02] MEDS ORDERED: ERGOCALCIFEROL (VITAMIN D2) 50,000 UNIT CAPSULE. PO SCH (16:00)
[2020-12-02] MEDS: DAPTOmycin (GENERIC) IVPB 550 MG in IV NORMAL SALINE 50ML 50 ML IV SCH (17:00)
[2020-12-02 18:53] VITALS: BP 143/69
--- NOTE | 2020-12-02 19:20 | NUR ---
Pt in bed assessment completed vss poc explained pt able to answer yes /no questions. Pt repositioned and call light placed in reach will resume care and continue to monitor pt.
[2020-12-02] MEDS: POLYVINYL ALCOHOL 1.4% OPHTH SOLUTION 15ML BOTTLE. OU PRN (21:27)
[2020-12-02] MEDS: ATORVASTATIN CALCIUM 40 MG TABLET. PO SCH (21:27)
[2020-12-02] MEDS: MIRTAZAPINE 15 MG TABLET PO SCH (21:27)
[2020-12-02 23:00] VITALS: BP 148/76
[2020-12-03 03:00] VITALS: BP 152/90
[2020-12-03] MEDS: IV NORMAL SALINE 1000ML BAG 1,000 ML IV SCH (05:52)
[2020-12-03 07:00] VITALS: BP 151/77
[2020-12-03] MEDS: IPRATRPIUM/ALBUTEROL 0.5/2.5MG 3 ML NEBU. NEB SCH ×3 (07:12→15:38)
--- NOTE | 2020-12-03 08:16 | PDOC ---
Infectious Disease Note Subjective: Subjective Patient without complaints Denies fever, nausea, vomiting, shortness of breath, diarrhea, abdominal pain, rash Otherwise as above Vital Signs: Vital Signs Vital Signs Date Time Temp Pulse Resp B/P (MAP) Pulse Ox O2 Delivery O2 Flow Rate FiO2 12/03/20 07:12 95 Room Air 12/03/20 07:00 98.4 89 18 151/77 (101) 98.4 Physical Exam: PHYSICAL EXAM GENERAL: The patient is propped up in bed, alert, no apparent distress. HEENT: Pupils equally round. Normal conjunctivae. Oropharynx clear. NECK: Supple. LUNGS: Clear to auscultation. No accessory muscle use. HEART: Normal S1 and S2, irregular. ABDOMEN: Obese, soft, nontender with bowel sounds present. GENITOURINARY: He has a briefs on. EXTREMITIES: No gross edema or cyanosis. Mild chronic stasis dermatitis of lower extremities bilaterally and tinea present on the feet. SKIN: Warm to touch. No signs of rash. NEUROLOGIC: Alert. He is able to answer a few simple questions appropriately. He has right-sided weakness. Peripheral IV looks okay. Medications: Inpatient Meds: Medications reviewed. Labs: Lab Laboratory Tests Test 12/02/20 11:37 12/02/20 16:45 12/02/20 21:25 12/03/20 07:13 Glucose (Fingerstick) 304 mg/dL (70-99) 279 mg/dL (70-99) 320 mg/dL (70-99) 303 mg/dL (70-99) Objective: Assessment: 1. Urinary tract infection 11/27. Grp B stre[ 2. Enterococcus faecalis bacteremia (1/4 bottles), 11/27. 3. Leukocytosis. 4. PENICILLIN ALLERGY. 5. History of cerebrovascular accident. 6. Diabetes mellitus type 2. 7. Paroxysmal atrial fibrillation. 8. Dementia. 9. Abnormal CT abdomen and pelvis revealing liver lesion 2 cm unknown etiology Plan: Plan of Care Dose ceftriaxone and daptomycin today Repeat blood cultures 12/02 2020 pending at this time Patient can be discharged on p.o. linezolid 600 mg p.o. twice daily for 10 days and cefdinir 300 mg p.o. twice daily for 7 days Repeat blood cultures from 12/02/2020 return positive patient will need to be readmitted for further evaluation and treatment Social service to assist for linezolid prescription for discharge Discussed with nursing staff JENNIFER CONDE MD Dec 03, 2020 08:16
[2020-12-03] MEDS: NEOMY/BACITR/POLYMYXIN OINT PACKET. TP SCH (08:20)
[2020-12-03] MEDS: DULoxetine HCL 30 MG CAPSULE.DR PO SCH (08:20)
[2020-12-03] MEDS: ARIPiprazole 5 MG TABLET PO SCH (08:20)
[2020-12-03] MEDS: ASPIRIN CHEWABLE 81 MG TABLET. PO SCH (08:20)
[2020-12-03] MEDS: MULTIVITAMIN with MINERAL TABLET. PO SCH (08:21)
[2020-12-03] MEDS: LACTOBACILLUS RHAMNOSUS GG 1 CAPSULE. PO SCH (08:21)
[2020-12-03] MEDS: APIXABAN 5 MG TABLET. PO SCH (08:21)
[2020-12-03] MEDS: SPIRONOLACTONE 25 MG TABLET PO SCH (08:21)
[2020-12-03] MEDS: metFORMIN XR 500 MG TAB.ER.24H PO SCH (08:21)
[2020-12-03] MEDS: BACLOFEN 10 MG TABLET. PO SCH ×2 (08:21→13:54)
[2020-12-03] MEDS: CARVEDILOL 6.25 MG TABLET. PO SCH (08:22)
[2020-12-03] MEDS: INSULIN LISPRO 300 UNITS/3 ML VIAL. SQ SCH ×4 (08:30→13:01)
[2020-12-03] MEDS: POLYVINYL ALCOHOL 1.4% OPHTH SOLUTION 15ML BOTTLE. OU PRN ×2 (08:32→12:55)
[2020-12-03] MEDS: INSULIN GLARGINE SYRINGE. SQ SCH (09:06)
[2020-12-03] MEDS ORDERED: INSULIN GLARGINE SYRINGE. SQ ONE (10:15)
[2020-12-03] MEDS ORDERED: LINE600T12 PO (10:19)
[2020-12-03] MEDS ORDERED: CEFD300C PO (10:19)
--- NOTE | 2020-12-03 10:21 | SNU/HH DC ---
DISCHARGE ORDERS DISCHARGE INFORMATION: DISCHARGE DATE: Dec 03, 2020 FINAL DIAGNOSIS Acute altered mental status, UTI, glucose uncontrolled, sepsis Enterococcus faecalis bacteremia (08/09 bottles), 11/27. Leukocytosis. PENICILLIN ALLERGY. Diabetes mellitus type 2. Paroxysmal atrial fibrillation. Dementia. 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, cerebral infarct, disabled post stroke, post stroke syndrome obese, BMI 41 Problems Medical Problems: (1) Cardiomegaly Status: Acute (2) Hypoxia Status: Acute (3) Sepsis Status: Acute (4) UTI (urinary tract infection) Status: Acute CONDITION ON DISCHARGE: Stable CODE STATUS: Code Status: Full [facility]: SNF STAY <30 DAYS: Yes POST DISCHARGE ORDERS: ACTIVITY ORDERS: Activity as tolerated WEIGHT BEARING STATUS: No restrictions DIET AFTER DISCHARGE: Cardiac WOUND/INCISION CARE: Ice to area for comfort, Reinforce dressing PRN CHECKS AFTER DISCHARGE: CHECKS AFTER DISCHARGE: Check blood press - daily, Check blood sugar, ac/hs, Check your Temp as needed FOLLOW-UP: LAB ORDERS FOR FOLLOW-UP: blood cx done 12/02 TREATMENT/EQUIPMENT ORDERS: ADAPTIVE EQUIPMENT NEEDED: Front wheeled walker, Wheelchair Physical Therapy For: Evalulation/Treatment Occupational Therapy For: Evaluation/Treatment Speech Language Pathology For: Swallow Cognition DISCHARGE MEDICATIONS: Home Meds Active Scripts Linezolid (ZYVOX) 600 Mg Tablet, 600 MG PO BID for infection for 10 Days, #20 TAB Prov:STEPH LEWIS MD 12/03/20 Cefdinir (CEFDINIR) 300 Mg Capsule, 1 CAP PO BID for bacteremia, #14 CAP Prov:STEPH LEWIS MD 12/03/20 Tramadol Hcl (TRAMADOL HCL) 50 Mg Tablet, 50 MG PO PRN Q8HRS PRN for PAIN for 6 Days, #18 TAB Prov:FRANCINE MCCRARY MD 06/18/18 Reported Medications Baclofen (BACLOFEN) 10 Mg Tablet, 1 TAB PO TID for other, #90 TAB 2 Refills 11/28/20 Acetaminophen (ACETAMINOPHEN) 325 Mg Tablet, 2 TAB PO PRN Q6HRS PRN for pain or fever for 30 Days, #30 TAB 0 Refills 11/28/20 Aripiprazole (ABILIFY) 2 Mg Tablet, 1 TAB PO DAILY for 30 Days, #30 TAB 0 Refills 11/28/20 Balsam Helene/Mcintosh Oil (VENELEX OINTMENT) 60 Gm Oint...g., 60 GM TP, MISC 11/28/20 Polyethylene Glycol 3350 (MIRALAX) 17 Gm Powd.pack, 1 PACKET PO DAILY for constipation for 2 Days, #2 PACKET 0 Refills dissolve in water 11/28/20 Magnesium Hydroxide (MILK OF MAGNESIA) 400 Mg/5 Ml Oral.susp, 30 ML PO for constipation, MISC 11/28/20 Cholecalciferol (Vitamin D3) (VITAMIN D3) 5,000 Unit Tablet, 38641 UNIT PO QTH for vit d deficiency, TAB 03/05/19 Neomycn/Baci Zn/Pmyx Bs/Pramox (TRIPLE ANTIBIOTIC PLUS OINTMNT) 28.4 Gm Oint... g., 1 JACKSON TP DAILY for wound healing, MISC 03/05/19 Trazodone Hcl (TRAZODONE HCL) 50 Mg Tablet, 50 MG PO HS for depression, TAB 03/05/19 Nystatin (NYSTATIN) 15 Gm Cream..g., 1 JACKSON TP PRN BID PRN for ITCHING, EACH 03/05/19 Mag Hydrox/Al Hydrox/Simeth (MAG-AL PLUS SUSPENSION) 30 Ml Oral.susp, 20 ML PO PRN Q6HRS PRN for HEARTBURN / GAS, MISC 03/05/19 Mirtazapine (MIRTAZAPINE) 15 Mg Tablet, 15 MG PO HS for insomnia, TAB 03/05/19 Magnesium Hydroxide (MILK OF MAGNESIA) 400 Mg/5 Ml Oral.susp, 30 ML PO PRN DAILY PRN for CONSTIPATION, MISC 03/05/19 Methyl Salicylate (Methyl Salicylate) 120 Gm Cream..g., 1 JACKSON TP PRN Q6HRS PRN for PAIN, EACH 03/05/19 Metformin Hcl (METFORMIN HCL ER) 500 Mg Tab.er.24h, 500 MG PO DAILY for dm, TAB 03/05/19 Duloxetine Hcl (CYMBALTA) 60 Mg Capsule.dr, 90 MG PO DAILY for depression, CAP 03/05/19 Aripiprazole (ABILIFY) 5 Mg Tablet, 2.5 MG PO DAILY for depression, TAB 03/05/19 Acetaminophen (ACETAMINOPHEN) 160 Mg/5 Ml Oral.susp, 2.5 ML PO PRN Q6HRS, #45 ML 02/11/18 Losartan Potassium (LOSARTAN POTASSIUM) 50 Mg Tablet, 50 MG PO DAILY, TAB 02/11/18 Gabapentin (GABAPENTIN ) 400 Mg Capsule, 600 MG PO BID for other, CAP 02/11/18 Apixaban (ELIQUIS) 5 Mg Tablet, 5 MG PO BID, TAB 02/11/18 Carvedilol (CARVEDILOL ) 6.25 Mg Tablet, 1 TAB PO TID for other, #180 TAB 1 Refill 02/11/18 Baclofen (BACLOFEN) 10 Mg Tablet, 1 TAB PO TID, #90 TAB 2 Refills 02/11/18 Atorvastatin Calcium (ATORVASTATIN CALCIUM) 40 Mg Tablet, 1 TAB PO QHS, #90 TAB 3 Refills 02/11/18 Aspirin (ASPIRIN) 81 Mg Tab.chew, 1 TAB PO DAILY, #30 TAB 3 Refills 02/11/18 Spironolactone (ALDACTONE) 25 Mg Tablet, 1 TAB PO DAILY, #90 TAB 1 Refill 02/11/18 STEPH LEWIS MD Dec 03, 2020 10:21
--- NOTE | 2020-12-03 10:24 | PDOC3 ---
Discharge Summary Visit Information Date of Admission: Nov 27, 2020 Date of Discharge: Dec 03, 2020 Final Diagnosis Acute altered mental status, UTI, glucose uncontrolled, sepsis Enterococcus faecalis bacteremia (/ bottles), 11/27. Leukocytosis. PENICILLIN ALLERGY. Diabetes mellitus type 2. Paroxysmal atrial fibrillation. Dementia. 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, cerebral infarct, disabled post stroke, post stroke syndrome obese, BMI 41 Problems Medical Problems: (1) Cardiomegaly Status: Acute (2) Hypoxia Status: Acute (3) Sepsis Status: Acute (4) UTI (urinary tract infection) Status: Acute Brief Hospital Course Allergies Allergies Coded Allergies Type Severity Reaction Last Updated Verified Influenza Virus Vaccines Allergy Intermediate 02/12/18 Yes Penicillins Allergy Intermediate 11/28/20 Yes hydrocodone Allergy Intermediate 02/12/18 Yes Vital Signs Vital Signs Date Time Temp Pulse Resp B/P (MAP) Pulse Ox O2 Delivery O2 Flow Rate FiO2 12/03/20 08:22 95 151/77 12/03/20 08:20 Room Air 12/03/20 07:12 95 12/03/20 07:00 98.4 18 98.4 Lab Results Laboratory Tests Test 12/01/20 11:25 12/01/20 17:10 12/01/20 21:25 12/02/20 07:54 Glucose (Fingerstick) 314 mg/dL (70-99) 298 mg/dL (70-99) 346 mg/dL (70-99) 259 mg/dL (70-99) Test 12/02/20 11:37 12/02/20 16:45 12/02/20 21:25 12/03/20 07:13 Glucose (Fingerstick) 304 mg/dL (70-99) 279 mg/dL (70-99) 320 mg/dL (70-99) 303 mg/dL (70-99) Laboratory Tests Test 12/02/20 11:37 12/02/20 16:45 12/02/20 21:25 12/03/20 07:13 Glucose (Fingerstick) 304 mg/dL (70-99) 279 mg/dL (70-99) 320 mg/dL (70-99) 303 mg/dL (70-99) Brief Hospital Course Mr. 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 admit for confusion, weakness, [facility] 13 on admit, UTI, bacteria '. Blood cultures grew enterococcus, only 1/4 abx, on Dapto here, ID consult followed, DC plan on below abx, resume prior plan of care after abx Discharge Information Condition at Discharge: Improved Follow Up: Weeks Disposition/Orders: D/C to Another Facility (skilled to long-term for prior CVA) Scheduled Acetaminophen (Acetaminophen) 160 Mg/5 Ml Oral.susp, 2.5 ML PO PRN Q6HRS, #45 (Reported) Entered as Reported by: JASKARAN ALVARADO on 02/11/181547 Last Action: Converted on 11/28/201218 by PATY MCCARTHY MD Apixaban (Eliquis) 5 Mg Tablet, 5 MG PO BID, (Reported) Entered as Reported by: JASKARAN ALVARADO on 02/11/181547 Last Action: Reviewed on 11/28/20 1456 by DAT MANN Aripiprazole (Abilify) 5 Mg Tablet, 2.5 MG PO DAILY for depression, (Reported) Entered as Reported by: LASHANDA MARTINEZ on 03/05/19 0112 Last Action: Continued on 11/28/201218 by PATY MCCARTHY MD Aripiprazole (Abilify) 2 Mg Tablet, 1 TAB PO DAILY for 30 Days, #30 Ref 0 (Reported) Entered as Reported by: CALVIN RAY on 11/28/20 143 Last Taken: UNKNOWN on Unknown Date & Time Last Action: New Order on 11/28/201431 by CALVIN RAY Aspirin (Aspirin) 81 Mg Tab.chew, 1 TAB PO DAILY, #30 Ref 3 (Reported) Entered as Reported by: JASKARAN ALVARADO on 02/11/181547 Last Action: Continued on 11/28/209 by PATY MCCARTHY MD Atorvastatin Calcium (Atorvastatin Calcium) 40 Mg Tablet, 1 TAB PO QHS, #90 Ref 3 (Reported) Entered as Reported by: JASKARAN ALVARADO on 02/11/181547 Last Action: Reviewed on 11/28/201431 by CALVIN RAY Baclofen (Baclofen) 10 Mg Tablet, 1 TAB PO TID, #90 Ref 2 (Reported) Entered as Reported by: JASKARAN ALVARADO on 02/11/181547 Last Action: Reviewed on 11/28/201431 by CALVIN RAY Baclofen (Baclofen) 10 Mg Tablet, 1 TAB PO TID for other, #90 Ref 2 (Reported) Entered as Reported by: DAT AMNN on 11/28/201455 Last Action: New Order on 11/28/201455 by DAT MANN Carvedilol (Carvedilol ) 6.25 Mg Tablet, 1 TAB PO TID for other, #180 Ref 1 (Reported) Entered as Reported by: JASKARAN ALVARADO on 02/11/181547 Last Action: Edited on 11/28/201455 by DAT MANN Cefdinir (Cefdinir) 300 Mg Capsule, 1 CAP PO BID for bacteremia, #14 Prescribed by: STEPH LEWIS on 12/03/20 1019 Cholecalciferol (Vitamin D3) (Vitamin D3) 5,000 Unit Tablet, 50,000 UNIT PO QTH for vit d deficiency, (Reported) Entered as Reported by: LASHANDA MARTINEZ on 03/05/19203 Last Action: Converted on 11/28/201218 by PATY MCCARTHY MD Duloxetine Hcl (Cymbalta) 60 Mg Capsule.dr, 90 MG PO DAILY for depression, (Reported) Entered as Reported by: LASHANDA MARTINEZ on 03/05/19 0112 Last Action: Edited on 11/28/201455 by DAT MANN Gabapentin (Gabapentin ) 400 Mg Capsule, 600 MG PO BID for other, (Reported) Entered as Reported by: JASKARAN ALVARADO on 02/11/181547 Last Action: Edited on 11/28/201455 by DAT MANN Linezolid (Zyvox) 600 Mg Tablet, 600 MG PO BID for infection for 10 Days, #20 Prescribed by: STEPH LEWIS on 12/03/20 1019 Losartan Potassium (Losartan Potassium) 50 Mg Tablet, 50 MG PO DAILY, (Reported) Entered as Reported by: JASKARAN ALVARADO on 02/11/181547 Last Action: Reviewed on 11/28/201431 by CALVIN RAY Metformin Hcl (Metformin Hcl Er) 500 Mg Tab.er.24h, 500 MG PO DAILY for dm, (Reported) Entered as Reported by: LASHANDA MARTINEZ on 03/05/19203 Last Action: Continued on 12/01/20 1023 by STEPH LEWIS Mirtazapine (Mirtazapine) 15 Mg Tablet, 15 MG PO HS for insomnia, (Reported) Entered as Reported by: LASHANDA MARTINEZ on 03/05/19203 Last Action: Continued on 11/28/201218 by PATY MCCARTHY MD Neomycn/Baci Zn/Pmyx Bs/Pramox (Triple Antibiotic Plus Ointmnt) 28.4 Gm Oint... g., 1 JACKSON TP DAILY for wound healing, (Reported) Entered as Reported by: LASHANDA MARTINEZ on 03/05/19203 Last Action: Converted on 11/28/201218 by PATY MCCARTHY MD Polyethylene Glycol 3350 (Miralax) 17 Gm Powd.pack, 1 PACKET PO DAILY for constipation for 2 Days, #2 Ref 0 (Reported) dissolve in water Entered as Reported by: CALVIN RAY on 11/28/201431 Last Taken: UNKNOWN on Unknown Date & Time Last Action: New Order on 11/28/201431 by CALVIN RAY Spironolactone (Aldactone) 25 Mg Tablet, 1 TAB PO DAILY, #90 Ref 1 (Reported) Entered as Reported by: JASKARAN ALVARADO on 02/11/18 1548 Last Action: Reviewed on 11/28/201431 by CALVIN RAY Trazodone Hcl (Trazodone Hcl) 50 Mg Tablet, 50 MG PO HS for depression, (Reported) Entered as Reported by: LASHANDA MARTINEZ on 03/05/19203 Last Action: Reviewed on 11/28/201431 by CALVIN RYA Scheduled PRN Acetaminophen (Acetaminophen) 325 Mg Tablet, 2 TAB PO PRN Q6HRS PRN for pain or fever for 30 Days, #30 Ref 0 (Reported) Entered as Reported by: CALVIN RAY on 11/28/201431 Last Taken: UNKNOWN on Unknown Date & Time Last Action: New Order on 11/28/201431 by CALVIN RAY Mag Hydrox/Al Hydrox/Simeth (Mag-Al Plus Suspension) 30 Ml Oral.susp, 20 ML PO PRN Q6HRS PRN for HEARTBURN / GAS, (Reported) Entered as Reported by: LASHANDA MARTINEZ on 03/05/19203 Last Action: Converted on 11/28/201218 by PATY MCCARTHY MD Magnesium Hydroxide (Milk Of Magnesia) 400 Mg/5 Ml Oral.susp, 30 ML PO PRN DAILY PRN for CONSTIPATION, (Reported) Entered as Reported by: LASHANDA MARTINEZ on 03/05/19203 Last Action: Continued on 11/28/201218 by PATY MCCARTHY MD Methyl Salicylate (Methyl Salicylate) 120 Gm Cream..g., 1 JACKSON TP PRN Q6HRS PRN for PAIN, (Reported) Entered as Reported by: LASHANDA MARTINEZ on 03/05/19203 Last Action: Reviewed on 11/28/201431 by CALVIN RAY Nystatin (Nystatin) 15 Gm Cream..g., 1 JACKSON TP PRN BID PRN for ITCHING, (Reported) Entered as Reported by: LASHANDA MARTINEZ on 03/05/19203 Last Action: Continued on 11/28/201218 by PATY MCCARTHY MD Tramadol Hcl (Tramadol Hcl) 50 Mg Tablet, 50 MG PO PRN Q8HRS PRN for PAIN for 6 Days, #18 Prescribed by: FRANCINE MCCRARY MD on 06/18/18 1235 Last Action: Reviewed on 11/28/201431 by CALVIN RAY Miscellaneous Medications Balsam Helene/[place] Oil (Venelex Ointment) 60 Gm Oint...g., 60 GM TP, (Reported) Entered as Reported by: CALVIN RAY on 11/28/201431 Last Taken: UNKNOWN on Unknown Date & Time Last Action: New Order on 11/28/201431 by CALVIN RAY Magnesium Hydroxide (Milk Of Magnesia) 400 Mg/5 Ml Oral.susp, 30 ML PO for constipation, (Reported) Entered as Reported by: CALVIN RAY on 11/28/201431 Last Taken: UNKNOWN on Unknown Date & Time Last Action: New Order on 11/28/201431 by CALVIN RAY Patient Instructions Patient Instructions > 39 min pt seen face to face Justicifation of Admission Dx: Justifications for Admission: Justification of Admission Dx: Yes (sepssi) STEPH LEWIS MD Dec 03, 2020 10:24
[2020-12-03 10:33] VITALS: BP 152/89
--- NOTE | 2020-12-03 13:17 | NUR ---
Pt ready for discharge and transfer back to [facility]. Chart copied and orders faxed. [facility] Pt aware of and agreeable to plans.
[2020-12-03] MEDS: cefTRIAXone IV Push 2 GM VIAL. IVP SCH (13:54)
[2020-12-03] MEDS: DAPTOmycin (GENERIC) IVPB 550 MG in IV NORMAL SALINE 50ML 50 ML IV SCH (14:10)
--- NOTE | 2020-12-03 14:30 | NUR ---
Attempted call [facility] twice and phone just rings and rings. Will attempt to try again.
[2020-12-03 14:45] VITALS: BP 158/93
--- NOTE | 2020-12-03 15:00 | NUR ---
Discharged and transferred to [facility] by jerica lagos
--- NOTE | 2020-12-03 15:37 | NUR ---
Attempted to call report to [facility] ([facility]) still no answer. Phone rings and rings.
--- NOTE | 2020-12-03 16:18 | NUR ---
Phone [facility], no answer.
[2020-12-03] MEDS ORDERED: INSULIN GLARGINE SYRINGE. SQ SCH (21:00)
== END 2020-12-03 15:00 | DRG 871 ==
LOC: ER 15:00 → ED HOLD 22:22 → 2 NORTH 23:38 → ED HOLD 11-28 14:00 → 2 NORTH 11-28 16:31
PROVIDERS: ADMIT Internal Medicine; ATTEND Internal Medicine
DX: A41.81 Sepsis due to Enterococcus (principal); G93.41 Metabolic encephalopathy; N17.0 Acute kidney failure with tubular necrosis; F05 Delirium due to known physiological condition; I69.351 Hemiplegia and hemiparesis following cerebral infarction affecting right dominant side; N39.0 Urinary tract infection, site not specified; Z68.41 Body mass index [BMI] 40.0-44.9, adult; Z16.23 Resistance to quinolones and fluoroquinolones; E11.65 Type 2 diabetes mellitus with hyperglycemia; E66.01 Morbid (severe) obesity due to excess calories; E78.00 Pure hypercholesterolemia, unspecified; E78.5 Hyperlipidemia, unspecified; F01.50 Vascular dementia, unspecified severity, without behavioral disturbance, psychotic disturbance, mood disturbance, and anxiety; G93.89 Other specified disorders of brain; I11.0 Hypertensive heart disease with heart failure; I25.10 Atherosclerotic heart disease of native coronary artery without angina pectoris; I48.0 Paroxysmal atrial fibrillation; I50.9 Heart failure, unspecified; I69.320 Aphasia following cerebral infarction; I70.0 Atherosclerosis of aorta; I87.8 Other specified disorders of veins; K76.0 Fatty (change of) liver, not elsewhere classified; R09.02 Hypoxemia; R32 Unspecified urinary incontinence; Z82.49 Family history of ischemic heart disease and other diseases of the circulatory system; Z87.440 Personal history of urinary (tract) infections; Z87.891 Personal history of nicotine dependence; Z88.0 Allergy status to penicillin; F32.9 Major depressive disorder, single episode, unspecified; K21.9 Gastro-esophageal reflux disease without esophagitis; Z88.7 Allergy status to serum and vaccine; Z88.8 Allergy status to other drugs, medicaments and biological substances
CPT/HCPCS: 96361; 96374; 96375; 99285; C8929; 36415; 36600; 70450; 71045; 74177; 80048; 80053; 80307; 81001; 82550; 82962; 83605; 83735; 83880; 84484; 85025; 87040; 87077; 87086; 87186; 87205; 87493; 93005; 94640; 94760; J0692; J0696; J0878; J1815; J7030; Q9956; Q9967; 92610-GN; 97110-GP; 97530-GP; 97535-GO; G0378

== ENCOUNTER 2021-05-28 10:51 | Emergency (ER) | payer MEDICARE, OTHER ==
[~2021-05-28] VITALS: Ht 167.6 cm; Wt 132.6 kg
[~2021-05-28 10:51] MED LIST changes: +ACET325T21 PO; +ARIP2TAB3 PO; +BALS60OI TP; +CEFD300C PO; -DULO60CA6 PO; +DULO60CA7 PO; +LINE600T12 PO; +MAGN400T48 PO; -MAGN400T5 PO; +POLY17PO29 PO
--- NOTE | 2021-05-28 11:08 | PHYS DOC ---
Past Medical History Past Medical History: A-Fib, Constipation, Dementia, Depression, Diabetes-Type II, GERD, High Cholesterol, Heart Disease, Hypertension, Stroke Additional Past Medical Histor: rt side deficit, aphasia Past Surgical History: Other Additional Past Surgical Histo: unknown Smoking Status: Never Smoker Alcohol Use: None Drug Use: None General Adult EDM: Chief Complaint: MECHANICAL FALL HPI: HPI: Patient is a 60-year-old male that was brought to us today by [place] fire department. Patient resides at a nursing facility there and per EMS report patient was transferring from bed to wheelchair and patient was dropped by staff, per EMS report patient hit right side of head and has a contusion there and was brought to us today for evaluation. Patient has a past medical history of a CVA which left his right side unusable patient also has a history of A. fib which she is on oral anticoagulation therapy. Patient does have a history of cognitive issues and dementia, patient does answer questions such as pain but is mostly very simple and answering questions. Per EMS report patient had no loss of consciousness and is unchanged from his mental status at the custodial Review of Systems: Review of Systems: Constitutional: Denies fever or chills. [] Eyes: Denies change in visual acuity. [] HENT: head swelling per EMS Respiratory: Denies cough or shortness of breath. [] Cardiovascular: Denies chest pain or edema. [] GI: Denies abdominal pain, nausea, vomiting, bloody stools or diarrhea. [] : Denies dysuria. [] Musculoskeletal: Denies back pain or joint pain. [] Integument: Denies rash. [] Neurologic: Denies headache, focal weakness or sensory changes. [] Endocrine: Denies polyuria or polydipsia. [] Lymphatic: Denies swollen glands. [] Psychiatric: Denies depression or anxiety. [] Heart Score: C/O Chest Pain: N/A Risk Factors: Risk Factors: DM, Current or recent (<one month) smoker, HTN, HLP, family history of CAD, obesity. Risk Scores: Score 0 - 3: 2.5% MACE over next 6 weeks - Discharge Home Score 4 - 6: 20.3% MACE over next 6 weeks - Admit for Clinical Observation Score 7 - 10: 72.7% MACE over next 6 weeks - Early Invasive Strategies Allergies: Allergies: Allergies Coded Allergies Type Severity Reaction Last Updated Verified Influenza Virus Vaccines Allergy Intermediate 02/12/18 Yes Penicillins Allergy Intermediate 11/28/20 Yes hydrocodone Allergy Intermediate 02/12/18 Yes Physical Exam: PE: Constitutional: Well developed, well nourished, no acute distress, non-toxic appearance. [] HENT: head and face palpation no laceration, abrasions noted, contusion to right temporal area noted, Eyes: PERRLA, EOMI, conjunctiva normal, no discharge. [] Neck: Normal range of motion, no tenderness, supple, no stridor. [] Cardiovascular:Heart rate regular rhythm, no murmur [] Lungs & Thorax: Bilateral breath sounds clear to auscultation [] Abdomen: Bowel sounds normal, soft, no tenderness, no masses, no pulsatile masses. [] Skin: Warm, dry, no erythema, no rash. [] Back: No tenderness, no CVA tenderness. [] Extremities: No tenderness, no cyanosis, no clubbing, ROM intact, no edema. [] Neurologic: Alert and oriented to person and place, patient will answer yes/no questions. Psychologic: Affect flat, cognition normal for patient. EKG: EKG: [] Radiology/Procedures: Radiology/Procedures: PROCEDURE: CT HEAD WO CONTRAST CT brain without contrast. HISTORY: Fell, patient on anticoagulation CT scan of brain was done without contrast. Comparison is made with a study from November 27, 2020. Sinuses are clear. A skull fracture is not identified. There is encephalomalacia from an old left middle cerebral artery CVA. There is no intracranial hemorrhage or subdural hematoma. The pattern is unchanged from the prior study. An acute CVA is not definitively identified. IMPRESSION: 1. Encephalomalacia from old left middle cerebral artery CVA. 2. No intracranial hemorrhage or acute finding. PQRS Compliance Statement: One or more of the following individualized dose reduction techniques were utilized for this examination: 1. Automated exposure control 2. Adjustment of the mA and/or kV according to patient size 3. Use of iterative reconstruction technique Electronically signed by: All Ontiveros MD (05/28/2021 11:34 AM) [facility] [] Course & Med Decision Making: Course & Med Decision Making Pertinent Labs and Imaging studies reviewed. (See chart for details) 1149 patient reassessed, vital signs stable, patient alert and answers questions appropriately for patient, CT scan reviewed and report noted, will discharge patient back to custodial with instructions to return to the ER for any change of level of consciousness or mental status changes. [] Dragon Disclaimer: Dragon Disclaimer: This electronic medical record was generated, in whole or in part, using a voice recognition dictation system. Departure Departure Impression: Primary Impression: Head contusion Qualified Codes: S00.03XA - Contusion of scalp, initial encounter Additional Impression: Fall at custodial Qualified Codes: W19.XXXA - Unspecified fall, initial encounter; Y92.129 - Unspecified place in custodial as the place of occurrence of the external cause Disposition: 01 HOME / SELF CARE / HOMELESS Condition: STABLE Referrals: FRANCHESCA GUILLEN MD (PCP) Patient Instructions: Contusion Additional Instructions: Tylenol as needed for pain Return to the emergency department for into mental status changes seizure activity or any other concerns. DANISHA CARDOZA BLENDING MACHINE OPERATOR May 28, 2021 11:08
--- NOTE | 2021-05-28 11:36 | RAD ---
CT brain without contrast. HISTORY: Fell, patient on anticoagulation CT scan of brain was done without contrast. Comparison is made with a study from November 27, 2020. Sinu ses are clear. A skull fracture is not identified. There is encephalomalacia from an old left middle cerebral artery CVA. There is no intracranial hemorrhage or subdural hematoma. The pattern is unchang ed from the prior study. An acute CVA is not definitively identified. IMPRESSION: 1. Encephalomalacia from old left middle cerebral artery CVA. 2. No intracranial hemorrhage or acute finding. PQRS Compliance Statement: One or more of the following individualized dose reduction techniques were utilized for this examinat ion: 1. Automated exposure control 2. Adjustment of the mA and/or kV according to patient size 3. Use of iterative reconstruction technique Electronically signed by: All Ontiveros MD (05/28/2021 11:34 AM) [facility]
[2021-05-28 12:30] VITALS: BP 165/95
== END 2021-05-28 13:35 | disposition home or self-care (01) ==
LOC: ER 10:51
DX: S00.03XA Contusion of scalp, initial encounter (principal); R51.9 Headache, unspecified; I48.91 Unspecified atrial fibrillation; K21.9 Gastro-esophageal reflux disease without esophagitis; E78.00 Pure hypercholesterolemia, unspecified; I11.9 Hypertensive heart disease without heart failure; Z86.73 Personal history of transient ischemic attack (TIA), and cerebral infarction without residual deficits; F03.90 Unspecified dementia, unspecified severity, without behavioral disturbance, psychotic disturbance, mood disturbance, and anxiety; G93.89 Other specified disorders of brain; Z88.0 Allergy status to penicillin; Z88.5 Allergy status to narcotic agent; Z88.7 Allergy status to serum and vaccine; W18.39XA Other fall on same level, initial encounter; Y93.89 Activity, other specified; Y92.89 Other specified places as the place of occurrence of the external cause; Y99.8 Other external cause status
CPT/HCPCS: 70450; 99284-25

== ENCOUNTER 2021-09-27 18:08 | Emergency (ER) | payer MEDICARE, OTHER ==
[~2021-09-27] VITALS: Ht 188 cm; Wt 127.0 kg
[2021-09-27] MEDS ORDERED: ACETAMINOPHEN 500 MG TABLET PO ONE (18:45)
[2021-09-27] MEDS ORDERED: oxyCODONE IR 5 MG TABLET PO ONE (18:45)
--- NOTE | 2021-09-27 18:53 | PHYS DOC ---
Past Medical History Past Medical History: A-Fib, Constipation, Dementia, Depression, Diabetes-Type II, GERD, High Cholesterol, Heart Disease, Hypertension, Stroke Additional Past Medical Histor: rt side deficit, aphasia Past Surgical History: Other Additional Past Surgical Histo: unknown Smoking Status: Never Smoker Alcohol Use: None Drug Use: None Adult General Chief Complaint Chief Complaint: MULTIPLE TRAUMA/FALL HPI HPI The patient is a 61-year-old comorbid male with a history of hypertension, hyperlipidemia, coronary artery disease, atrial fibrillation on apixaban, insulin-dependent diabetes, history of ischemic stroke with consequent right-s ided hemiparesis and aphasia, residing in a local nursing facility. Mr. Osorio presents for an apparent unwitnessed fall which occurred last night. Per report from EMS, patient was found down on the ground. He has been alert and oriented consistent with his typical level of responsiveness, answering questions appropriately with yes or no and following commands with his nonparalyzed side. The nursing facility obtained plain imaging of the right shoulder and humerus which were concerning for possible nondisplaced fracture of the humeral neck. Patient was then sent here for further evaluation. Upon initial evaluation here in the emergency department patient is alert and interactive consistent with his baseline. He is able to state yes or no in response to questions. He is able to indicate that his right shoulder and upper arm are hurting. He also indicates discomfort to the right side of his chest wall anteriorly and laterally and to the right side of his head. He is unable to contribute further to history secondary to his baseline aphasia. Vital signs are appropriate here and he is in no acute distress. Review of Systems Review of Systems A 12 point review of systems was completed and was negative except where noted in HPI above. Current Medications Current Medications Current Medications Medications (Trade) Dose Ordered Sig/Judi Start Time Stop Time Status Last Admin Dose Admin Acetaminophen (Tylenol) 1,000 mg 1X ONCE 09/27/21 18:45 09/27/21 18:46 DC 09/27/21 20:20 1,000 MG Info (CONTRAST GIVEN -- Rx MONITORING) 1 each PRN DAILY PRN 09/27/21 22:00 09/29/21 21:59 Insulin Human Lispro (HumaLOG) 5 units 1X STAT 09/27/21 21:03 09/27/21 21:09 DC 09/27/21 22:32 5 UNITS Iohexol (Omnipaque 300 Mg/ml) 75 ml 1X ONCE 09/27/21 22:00 09/27/21 22:01 DC 09/27/21 22:10 75 ML Oxycodone HCl (Roxicodone) 5 mg 1X ONCE 09/27/21 18:45 09/27/21 18:46 DC 09/27/21 20:20 5 MG Allergies Allergies Allergies Coded Allergies Type Severity Reaction Last Updated Verified Influenza Virus Vaccines Allergy Intermediate 02/12/18 Yes Penicillins Allergy Intermediate 11/28/20 Yes hydrocodone Allergy Intermediate 02/12/18 Yes Physical Exam Physical Exam 61-year-old male appearing nontoxic and in no acute distress. Head is normocephalic and atraumatic. Neck is supple and nontender. Oropharynx is moist. Lungs are clear to auscultation at all stations. There is a normal S1 and S2 without rubs or gallops and capillary refill is appropriate, less than 2 seconds globally. Abdomen is soft, nontender and obese. Skin is warm and dry without cyanosis or clubbing. Psychiatrically, the patient demonstrates appropriate mood and affect and is alert. Neurologically, patient moves his left side to command and has 5 out of 5 strength there. He has 0/5 strength on his right side which demonstrates chronic contracture to the RUE. This is reportedly his baseline. Evaluation of the extremities reveals BUEs and BLEs neurovascularly intact distally with capillary refill less than 2 seconds, feet warm and well-perfused. There is 1+ pitting peripheral edema to the bilateral lower extremities, symmetric, to the level of the mid shins. This appears baseline for the patient. No calf tenderness or swelling bilaterally. Homans test is negative bilaterally. Current Patient Data Vital Signs Vital Signs Date Time Temp Pulse Resp B/P (MAP) Pulse Ox O2 Delivery O2 Flow Rate FiO2 09/27/21 22:50 94 18 182/90 (120) 95 Room Air 09/27/21 18:20 98.3 98.3 Lab Values Laboratory Tests Test 09/27/21 19:00 09/27/21 22:28 White Blood Count 12.4 x10^3/uL (4.0-11.0) H Red Blood Count 4.69 x10^6/uL (4.30-5.70) Hemoglobin 12.3 g/dL (13.0-17.5) L Hematocrit 38.4 % (39.0-53.0) L Mean Corpuscular Volume 82 fL (79-100) Mean Corpuscular Hemoglobin 26 pg (25-35) Mean Corpuscular Hemoglobin Concent 32 g/dL (31-37) Red Cell Distribution Width 17.5 % (11.5-14.5) H Platelet Count 378 x10^3/uL (140-400) Neutrophils (%) (Auto) 77 % (31-73) H Lymphocytes (%) (Auto) 13 % (24-48) L Monocytes (%) (Auto) 6 % (0-9) Eosinophils (%) (Auto) 3 % (0-3) Basophils (%) (Auto) 1 % (0-3) Neutrophils # (Auto) 9.6 x10^3/uL (1.8-7.7) H Lymphocytes # (Auto) 1.6 x10^3/uL (1.0-4.8) Monocytes # (Auto) 0.7 x10^3/uL (0.0-1.1) Eosinophils # (Auto) 0.4 x10^3/uL (0.0-0.7) Basophils # (Auto) 0.1 x10^3/uL (0.0-0.2) Prothrombin Time 14.7 SEC (11.7-14.0) H Prothrombin Time INR 1.2 (0.8-1.1) H Activated Partial Thromboplast Time 36 SEC (24-38) Sodium Level 135 mmol/L (136-145) L Potassium Level 4.5 mmol/L (3.5-5.1) Chloride Level 95 mmol/L (98-107) L Carbon Dioxide Level 29 mmol/L (21-32) Anion Gap 11 (6-14) Blood Urea Nitrogen 14 mg/dL (8-26) Creatinine 1.2 mg/dL (0.7-1.3) Estimated GFR (Cockcroft-Gault) 61.3 BUN/Creatinine Ratio 12 (6-20) Glucose Level 379 mg/dL (70-99) H Calcium Level 8.9 mg/dL (8.5-10.1) Total Bilirubin 0.5 mg/dL (0.2-1.0) Aspartate Amino Transferase (AST) 12 U/L (15-37) L Alanine Aminotransferase (ALT) 26 U/L (16-63) Alkaline Phosphatase 105 U/L (46-116) Total Protein 8.0 g/dL (6.4-8.2) Albumin 2.9 g/dL (3.4-5.0) L Albumin/Globulin Ratio 0.6 (1.0-1.7) L Glucose (Fingerstick) 299 mg/dL (70-99) H Laboratory Tests 09/27/21 19:00 Laboratory Tests 09/27/21 19:00 EKG EKG [] Radiology/Procedures Radiology/Procedures PATIENT: MEL OSORIO ACCOUNT: [id number] : 1960 LOCATION: ER AGE: 61 SEX: M EXAM STATUS: REG ER ORD. PHYSICIAN: HO MCCLAIN MD REASON: hepatic area of hypoattenuation, fall, additional imaging recc'ed by rads PROCEDURE: CT ABD PELV W/ IV CONTRST ONLY Exam: CT of abdomen and pelvis with contrast INDICATION: Liver abnormality on CTA chest TECHNIQUE: Sequential axial images through the abdomen and pelvis obtained following the administration of 60 mL of Omni 300 IV contrast. Sagittal and coronal reformatted images were reconstructed from the axial data and reviewed. Exposure: One or more of the following in the visualized dose reduction techniques were utilized for this examination: 1. Automated exposure control 2. Adjustment of the MA and/or KV according to patient size 3. Use of iterative of reconstructive technique Comparisons: Chest CT same day, abdomen and pelvis CT for 23/11/2020 FINDINGS: Heart size is normal. No pericardial effusion. Visualized lung bases are clear. No pleural effusion. Liver contour is normal. There is a band of hypoattenuation through the right hepatic lobe again seen which is nonspecific. Spleen, pancreas and adrenals are unremarkable. Gallbladder surgically absent. No perinephric inflammation or hydronephrosis. No renal or ureteral calculi are identified. Bladder is partially distended and appears thin-walled. Prostate is not enlarged. Moderate amount stool is noted in colon. Appendix is not identified. Small bowel is unremarkable. No free intra-abdominal air or fluid. No obstruction. Abdominal aorta has a normal course and caliber. Abdominal vasculature is patent. No enlarged intra-abdominal lymph nodes are identified. No suspicious osseous lesions or acute fractures. IMPRESSION: Vague band of hypoattenuation through the right hepatic lobe is again seen. This is favored represent a geographic area of steatosis. Other differential considerations include infarct. No adjacent free fluid or inflammation to suggest laceration. Electronically signed by: Bib Kam MD (09/27/2021 10:36 PM) [facility] DICTATED and SIGNED BY: BIB KAM MD DATE: 09/27/[id number] 0 Exam: Right elbow 2 views INDICATION: Trauma TECHNIQUE: Frontal and lateral views the right elbow Comparisons: None FINDINGS: Bone mineralization is normal. No acute or healed fractures. Soft tissues are unremarkable. Joint spaces are well-maintained IMPRESSION: No acute osseous abnormality. Electronically signed by: Bib Kam MD (09/27/2021 9:27 PM) [facility] DICTATED and SIGNED BY: BIB KAM MD DATE: 09/27/[id number] 0 Exam: CT right shoulder without contrast INDICATION: Nondisplaced humeral neck fracture TECHNIQUE: Sequential axial images through the right shoulder obtained without IV contrast. Sagittal and coronal reformatted images were reconstructed from the axial data and reviewed. Exposure: One or more of the following in the visualized dose reduction techniques were utilized for this examination: 1. Automated exposure control 2. Adjustment of the MA and/or KV according to patient size 3. Use of iterative of reconstructive technique Comparisons: None FINDINGS: There is a impacted mildly comminuted fracture at the surgical neck of the right humerus. Joint spaces are well-maintained. Bone mineralization is normal. Soft tissues are unremarkable. IMPRESSION: Impacted mildly comminuted fracture at the surgical neck of the right humerus. Electronically signed by: Bib Kam MD (09/27/2021 8:33 PM) [facility] DICTATED and SIGNED BY: BIB KAM MD DATE: 09/27/[id number] 0 Exam: CT head and cervical spine INDICATION: Fall TECHNIQUE: Sequential axial images through the head and cervical spine were obtained without the administration of IV contrast. Exposure: One or more of the following in the visualized dose reduction techniques were utilized for this examination: 1. Automated exposure control 2. Adjustment of the MA and/or KV according to patient size 3. Use of iterative of reconstructive technique Comparisons: None FINDINGS: Head: No focal parenchymal lesion or hemorrhage is identified. There is no midline shift or sulcal effacement. Chronic infarct in the left MCA distribution. No acute vascular territory infarction is identified. Bates-white distinction is preserved. The ventricular system is within normal limits without compression hydrocephalus. The basal cisterns are well maintained. The visualized portions of the paranasal sinuses and mastoid air cells are well- pneumatized. No acute fractures. Cervical spine: Straightening of the cervical spine. Vertebral body heights are well-maintained. Fracture to the cervical spine as nonidentified. Mild degenerative disc disease greatest at C6-C7. Bilateral facet arthropathy is also noted in cervical spine. Visualized paraspinal soft tissues are unremarkable. IMPRESSION: 1. No acute intracranial abnormality. 2. Negative CT C-spine for acute traumatic injury. Electronically signed by: Bib Kam MD (09/27/2021 8:29 PM) [facility] DICTATED and SIGNED BY: BIB KAM MD DATE: 09/27/[id number] 0 Course & Med Decision Making Course & Med Decision Making We will check basic labs and coags and will obtain advanced imaging as noted, including advanced imaging of the right upper extremity given plain films suggesting CT of the RUE. Will give a dose of oxycodone and a dose of Tylenol for pain. We will then reevaluate. 2330: Patient resting comfortably in no acute distress on serial reassessments. Labs as above, remarkable for mild leukocytosis, nonspecific, and elevated blood glucose which has been addressed with subcutaneous insulin. Imaging remarkable for femoral neck fracture on CT of the right upper extremity. Additional advanced imaging is without evidence of acute process. We obtained abdominopelvic imaging at the suggestion of the reading radiologist given an area of hypoattenuation partially seen in the liver on chest CT. This is better characterized on abdominal imaging and is favored to represent focal area of steatosis, though infarct is a diagnostic consideration per radiology. Due to this, I discussed the patient and imaging findings in detail with Dr. Sagastume of gastroenterology. From his standpoint, the liver has redundant blood supply and infarction is not a concern, particularly if LFTs are normal (they are) and the patient has no abdominal complaints (he has none). Should be followed up in 6 months to document stability per Dr. Sagastume. Will place right upper extremity in a sling and refer back to orthopedics for close outpatient follow-up for humeral neck fracture. Neurovascularly intact to the right upper extremity and pain is controlled on serial reassessments. All questions have been answered. Dragon Disclaimer Dragon Disclaimer This electronic medical record was generated, in whole or in part, using a voice recognition dictation system. Departure Departure Impression: Primary Impression: Fall at [facility] Additional Impression: Fracture, humerus, neck Disposition: 01 HOME / SELF CARE / HOMELESS Condition: STABLE Referrals: FRANCHESCA GUILLEN MD (PCP) NAYELY BARRIENTOS MD Patient Instructions: Humerus Fracture, Treated with Immobilization Additional Instructions: Follow-up in the orthopedic clinic with Dr. Nayely Barrientos in the next 2 to 4 days for a reevaluation of your symptoms and a discussion of next best steps in care with regard to your humeral fracture. Use the sling for comfort. You may take Tylenol every 6 hours as needed for discomfort. Return to the emergency department right away for worsening symptoms of any kind or with any other new symptoms of concern. There was an area in your liver on imaging today which appears abnormal. This is probably due to fatty change but our material scheduler, Dr. Sagastume, adam mmends a repeat CT scan of your abdomen and pelvis in 6 months to document stability of the area. Problem Qualifiers Primary Impression: Fall at [facility] Encounter type: initial encounter Qualified Codes: W19.XXXA - Unspecified fall, initial encounter; Y92.129 - Unspecified place in [facility] as the place of occurrence of the external cause Additional Impression: Fracture, humerus, neck Encounter type: initial encounter Fracture type: closed Laterality: right Qualified Codes: S42.211A - Unspecified displaced fracture of surgical neck of right humerus, initial encounter for closed fracture HO MCCLAIN MD Sep 27, 2021 18:53
[2021-09-27 19:14] LABS: BASO # 0.1 x10^3/uL (0.0-0.2); BASO % 1 % (0-3); EOS # 0.4 x10^3/uL (0.0-0.7); EOS % 3 % (0-3); HEMATOCRIT 38.4 % (39.0-53.0); HEMOGLOBIN 12.3 g/dL (13.0-17.5); LYMPH # 1.6 x10^3/uL (1.0-4.8); LYMPH % 13 % (24-48); MEAN CORPUSCULAR HEMOGLOBIN 26 pg (25-35); MEAN CORPUSCULAR HGB CONC 32 g/dL (31-37); MEAN CORPUSCULAR VOLUME 82 fL (79-100); MONO # 0.7 x10^3/uL (0.0-1.1); MONO % 6 % (0-9); NEUT # 9.6 x10^3/uL (1.8-7.7); NEUT % 77 % (31-73); PLATELET COUNT 378 x10^3/uL (140-400); RED BLOOD COUNT 4.69 x10^6/uL (4.30-5.70); RED CELL DISTRIBUTION WIDTH 17.5 % (11.5-14.5); WHITE BLOOD COUNT 12.4 x10^3/uL (4.0-11.0)
[2021-09-27 19:24] LABS: PROTHROMBIN TIME PATIENT 14.7 SEC (11.7-14.0)
[2021-09-27 19:28] LABS: CALCIUM 8.9 mg/dL (8.5-10.1); CREATININE 1.2 mg/dL (0.7-1.3); GFR 61.3; POTASSIUM 4.5 mmol/L (3.5-5.1)
[2021-09-27 19:34] LABS: ALBUMIN 2.9 g/dL (3.4-5.0); ALBUMIN/GLOBULIN RATIO 0.6 (1.0-1.7); TOTAL BILIRUBIN 0.5 mg/dL (0.2-1.0)
--- NOTE | 2021-09-27 20:24 | RAD ---
Exam: CT of chest without contrast INDICATION: Fall, head injury TECHNIQUE: Sequential axial images through the chest obtained without IV contrast. Sagittal and coron al reformatted images were reconstructed from the axial data and reviewed. Exposure: One or more of the following in the visualized dose reduction techniques were utilized for this examination: 1. Automated exposure control 2. Adjustment of the MA and/or KV according to patient size 3. Use of iterative of reconstructive technique Comparisons: None FINDINGS: Visualized portions of the thyroid are unremarkable. No enlarged mediastinal lymph nodes are identifi ed. Heart size is the upper limits of normal. No pericardial effusion. Mild coronary artery calcification s. Thoracic aorta has a normal course and caliber. Pulmonary artery is not enlarged. Airways are patent. No consolidation or pneumothorax. Strandy opacities at the dependent portion of t he left lower lobe, may relate to atelectasis. No pleural effusion or thickening. Vague area of hypoattenuation through the right hepatic lobe of the liver anteriorly. No suspicious osseous lesions or acute fractures. IMPRESSION: 1. No sequela of acute traumatic injury identified within the chest. 2. Vague area of hypoattenuation along the right hepatic lobe of the liver anteriorly. This is nonsp ecific could relate to artifact however dedicated abdominal imaging is recommended. Electronically signed by: Bib Dacosta MD (09/27/2021 8:22 PM) [facility]
--- NOTE | 2021-09-27 20:31 | RAD ---
Exam: CT head and cervical spine INDICATION: Fall TECHNIQUE: Sequential axial images through the head and cervical spine were obtained without the admi nistration of IV contrast. Exposure: One or more of the following in the visualized dose reduction techniques were utilized for this examination: 1. Automated exposure control 2. Adjustment of the MA and/or KV according to patient size 3. Use of iterative of reconstructive technique Comparisons: None FINDINGS: Head: No focal parenchymal lesion or hemorrhage is identified. There is no midline shift or sulcal effaceme nt. Chronic infarct in the left MCA distribution. No acute vascular territory infarction is identified. G ray-white distinction is preserved. The ventricular system is within normal limits without compression hydrocephalus. The basal cisterns are well maintained. The visualized portions of the paranasal sinuses and mastoid air cells are well-pneumatized. No acute fractures. Cervical spine: Straightening of the cervical spine. Vertebral body heights are well-maintained. Fracture to the cervical spine as nonidentified. Mild degenerative disc disease greatest at C6-C7. Bilateral facet arthropathy is also noted in cervic al spine. Visualized paraspinal soft tissues are unremarkable. IMPRESSION: 1. No acute intracranial abnormality. 2. Negative CT C-spine for acute traumatic injury. Electronically signed by: Bib Dacosta MD (09/27/2021 8:29 PM) [facility]
--- NOTE | 2021-09-27 20:36 | RAD ---
Exam: CT right shoulder without contrast INDICATION: Nondisplaced humeral neck fracture TECHNIQUE: Sequential axial images through the right shoulder obtained without IV contrast. Sagittal and coronal reformatted images were reconstructed from the axial data and reviewed. Exposure: One or more of the following in the visualized dose reduction techniques were utilized for this examination: 1. Automated exposure control 2. Adjustment of the MA and/or KV according to patient size 3. Use of iterative of reconstructive technique Comparisons: None FINDINGS: There is a impacted mildly comminuted fracture at the surgical neck of the right humerus. Joint spaces are well-maintained. Bone mineralization is normal. Soft tissues are unremarkable. IMPRESSION: Impacted mildly comminuted fracture at the surgical neck of the right humerus. Electronically signed by: Bib Dacosta MD (09/27/2021 8:33 PM) [facility]
[2021-09-27] MEDS ORDERED: INSULIN LISPRO 300 UNITS/3 ML VIAL. SQ STA (21:03)
--- NOTE | 2021-09-27 21:30 | RAD ---
Exam: Right elbow 2 views INDICATION: Trauma TECHNIQUE: Frontal and lateral views the right elbow Comparisons: None FINDINGS: Bone mineralization is normal. No acute or healed fractures. Soft tissues are unremarkable. Joint spa reuben are well-maintained IMPRESSION: No acute osseous abnormality. Electronically signed by: Bib Dacosta MD (09/27/2021 9:27 PM) [facility]
[2021-09-27] MEDS ORDERED: CONTRAST GIVEN. MC PRN (22:00)
[2021-09-27] MEDS ORDERED: IOHEXOL 300 MG/ML 100ML VIAL. IV ONE (22:00)
--- NOTE | 2021-09-27 22:39 | RAD ---
Exam: CT of abdomen and pelvis with contrast INDICATION: Liver abnormality on CTA chest TECHNIQUE: Sequential axial images through the abdomen and pelvis obtained following the administrati on of 60 mL of Omni 300 IV contrast. Sagittal and coronal reformatted images were reconstructed from the axial data and reviewed. Exposure: One or more of the following in the visualized dose reduction techniques were utilized for this examination: 1. Automated exposure control 2. Adjustment of the MA and/or KV according to patient size 3. Use of iterative of reconstructive technique Comparisons: Chest CT same day, abdomen and pelvis CT for 23/11/2020 FINDINGS: Heart size is normal. No pericardial effusion. Visualized lung bases are clear. No pleural effusion. Liver contour is normal. There is a band of hypoattenuation through the right hepatic lobe again seen which is nonspecific. Spleen, pancreas and adrenals are unremarkable. Gallbladder surgically absent. No perinephric inflammation or hydronephrosis. No renal or ureteral calculi are identified. Bladder is partially distended and appears thin-walled. Prostate is not enlarged. Moderate amount stool is noted in colon. Appendix is not identified. Small bowel is unremarkable. No free intra-abdominal air or fluid. No obstruction. Abdominal aorta has a normal course and caliber. Abdominal vasculature is patent. No enlarged intra-abdominal lymph nodes are identified. No suspicious osseous lesions or acute fractures. IMPRESSION: Vague band of hypoattenuation through the right hepatic lobe is again seen. This is favored represent a geographic area of steatosis. Other differential considerations include infarct. No adjacent free fluid or inflammation to suggest laceration. Electronically signed by: Bib Dacosta MD (09/27/2021 10:36 PM) [facility]
[2021-09-27 23:33] VITALS: BP 197/91
== END 2021-09-27 23:47 | disposition home or self-care (01) ==
LOC: ER 18:08
DX: S42.211A Unspecified displaced fracture of surgical neck of right humerus, initial encounter for closed fracture (principal); I48.91 Unspecified atrial fibrillation; F03.90 Unspecified dementia, unspecified severity, without behavioral disturbance, psychotic disturbance, mood disturbance, and anxiety; E11.9 Type 2 diabetes mellitus without complications; K21.9 Gastro-esophageal reflux disease without esophagitis; E78.00 Pure hypercholesterolemia, unspecified; I11.9 Hypertensive heart disease without heart failure; I25.10 Atherosclerotic heart disease of native coronary artery without angina pectoris; Z86.73 Personal history of transient ischemic attack (TIA), and cerebral infarction without residual deficits; Z88.0 Allergy status to penicillin; Z88.5 Allergy status to narcotic agent; Z88.7 Allergy status to serum and vaccine; W18.39XA Other fall on same level, initial encounter; Y93.89 Activity, other specified; Y92.89 Other specified places as the place of occurrence of the external cause; Y99.8 Other external cause status
CPT/HCPCS: 36415; 70450; 71250; 72125; 73070; 73200; 74177; 80053; 82962; 85025; 85610; 85730; 96372; 99285; J1815; Q9967

== ENCOUNTER 2021-10-16 11:16 | Emergency (ER) | payer MEDICARE, OTHER ==
[~2021-10-16] VITALS: Ht 177.8 cm; Wt 127.0 kg
--- NOTE | 2021-10-16 11:49 | RAD ---
XR HUMERUS 2 VIEWS bilateral study Clinical indications: Reason: fall, pain, recent fracture / Spl. Instructions: / History: Right humerus: Nondisplaced fracture of the proximal right humeral metaphysis is seen including the r egion of the greater tubercle. The glenohumeral joint is normally aligned. No AC joint separation is seen. No lytic process is evident. Left humerus: No acute fracture or dislocation or lytic process is seen. No AC joint separation is se en. IMPRESSION: Acute fracture of the proximal right humerus. Electronically signed by: Bakari Gillespie MD (10/16/2021 11:47 AM) [id number]
--- NOTE | 2021-10-16 12:08 | RAD ---
EXAM: Head and cervical spine CT without contrast. HISTORY: Fall. Scalp swelling. Pain. TECHNIQUE: Computed tomographic images of the head and cervical spine were obtained without contrast. *One or more of the following individualized dose reduction techniques were utilized for this examina tion: 1. Automated exposure control. 2. Adjustment of the mA and/or kV according to patient size. 3. Use of iterative reconstruction technique. COMPARISON: 09/27/2021. FINDINGS: Head: There is no acute hemorrhage. There is encephalomalacia within the left middle cerebral artery distribution due to chronic infarction. There is associated ex vacuo dilatation of the left lateral v entricle. There is decreased attenuation within the cerebral white matter, likely due to chronic smal l vessel disease. There is no hydrocephalus. There is no suspicious osseous lesion. There is near com plete opacification of the left maxillary and ethmoid sinus due to sinusitis. The orbits are unremark able. Cervical spine: There is minimal multilevel degenerative listhesis. There is degenerative endplate re modeling with anterior spurring throughout the cervical and upper thoracic spine. There is multilevel facet arthropathy. There is associated degenerative fusion of the facet joints at multiple levels. T here is no suspicious osseous lesion. There is no acute fracture. The combination of degenerative changes results in moderate right foraminal stenosis at C2-C3, modera te right and moderate to severe left foraminal stenosis at C3-C4, and moderate left foraminal stenosi s at C5-C6. The lung apices are unremarkable. IMPRESSION: 1. No acute intracranial finding or evidence of acute cervical spine trauma. 2. Bilateral cerebral white matter changes, likely due to chronic small vessel disease. 3. Encephalomalacia due to chronic infarction involving the left middle cerebral artery distribution. 4. Degenerative change throughout the cervical spine, resulting in stenosis at the aforementioned lev els. 5. Left paranasal sinus disease. Electronically signed by: Rekha Martinez MD (10/16/2021 12:05 PM) [facility]
--- NOTE | 2021-10-16 12:37 | PHYS DOC ---
Past Medical History Past Medical History: A-Fib, Constipation, Dementia, Depression, Diabetes-Type II, GERD, High Cholesterol, Heart Disease, Hypertension, Stroke Additional Past Medical Histor: FALLS Past Surgical History: Other Additional Past Surgical Histo: RIGHT SHOULDER Smoking Status: Never Smoker Alcohol Use: None Drug Use: None General Adult EDM: Chief Complaint: MECHANICAL FALL HPI: HPI: Patient is a 61 year old brought [facility] by EMS [facility] for evaluation after a reported fall. The patient has chronic right hemiparesis from previous CVA. He has significant expressive aphasia and dysarthria at baseline. He recently sustained a proximal humerus fracture of the right upper extremity. This occurred 09/27/2021. Today, he was working with physical therapy, he was being lifted using a gait belt and he fell onto his right side again. He is reporting continued but unchanged pain in his right upper extremity. He does have a small area of soft tissue swelling of his right scalp. No loss of consciousness reported. The patient denies headache, neck pain, back pain. He denies any new weakness. He denies chest pain, cough, dyspnea. He is anticoagulated on Eliquis. Review of Systems: Review of Systems: Review of systems is somewhat limited secondary to chronic baseline weakness and aphasia, please see HPI for review of systems Heart Score: C/O Chest Pain: No Risk Factors: Risk Factors: DM, Current or recent (<one month) smoker, HTN, HLP, family history of CAD, obesity. Risk Scores: Score 0 - 3: 2.5% MACE over next 6 weeks - Discharge Home Score 4 - 6: 20.3% MACE over next 6 weeks - Admit for Clinical Observation Score 7 - 10: 72.7% MACE over next 6 weeks - Early Invasive Strategies Allergies: Allergies: Allergies Coded Allergies Type Severity Reaction Last Updated Verified Influenza Virus Vaccines Allergy Intermediate 02/12/18 Yes Penicillins Allergy Intermediate 11/28/20 Yes hydrocodone Allergy Intermediate 02/12/18 Yes Physical Exam: PE: Constitutional: Well developed, well nourished, no acute distress, non-toxic appearance. Appears older than stated age. No acute distress. HENT: Very mild area of soft tissue swelling and mild contusion of the right frontal parietal scalp. No tenderness. No significant large cephalhematoma. No step-offs or crepitus. No open wounds. No warmth or erythema. Eyes: PERRL, EOMI, conjunctiva normal, no discharge. No evidence of trauma or injury. Neck: Normal range of motion, no tenderness, supple, no stridor. Trachea midline. No midline tenderness or step-offs Cardiovascular:Heart rate regular rhythm, 2 radial pulses bilaterally Lungs & Thorax: Bilateral breath sounds clear to auscultation [] Abdomen: Abdomen is obese, soft, nondistended, nontender to palpation. Skin: Warm, dry, no erythema, no rash. No open wounds or lacerations Extremities: No acute deformity noted. There is some tenderness to palpation of the right proximal humerus area. Limited and painful passive range of motion. He has chronic right upper and right lower extremity weakness/hemiparesis. Pelvis is stable. Neurologic: He is awake and alert. He does have some significant expressive aphasia, he is able to state yes or no in response to questions. Some dysarthria is noted with attempting to communicate. No facial asymmetry. Right hemiparesis noted. Psychologic: Affect is flat Current Patient Data: Vital Signs: Vital Signs Date Time Temp Pulse Resp B/P (MAP) Pulse Ox O2 Delivery O2 Flow Rate FiO2 10/16/21 11:16 97.3 81 18 114/77 (89) 96 Room Air 97.3 EKG: EKG: [] Radiology/Procedures: Radiology/Procedures: IMAGING REPORT Signed PATIENT: MEL OSORIO ACCOUNT: [id number] : 1960 LOCATION: ER AGE: 61 SEX: M EXAM STATUS: REG ER ORD. PHYSICIAN: TOMAS CARABALLO DO REASON: fall, right scalp swelling PROCEDURE: CT HEAD AND CERVICAL SPINE WO EXAM: Head and cervical spine CT without contrast. HISTORY: Fall. Scalp swelling. Pain. TECHNIQUE: Computed tomographic images of the head and cervical spine were obtained without contrast. *One or more of the following individualized dose reduction techniques were utilized for this examination: 1. Automated exposure control. 2. Adjustment of the mA and/or kV according to patient size. 3. Use of iterative reconstruction technique. COMPARISON: 09/27/2021. FINDINGS: Head: There is no acute hemorrhage. There is encephalomalacia within the left middle cerebral artery distribution due to chronic infarction. There is associated ex vacuo dilatation of the left lateral ventricle. There is decreased attenuation within the cerebral white matter, likely due to chronic small vessel disease. There is no hydrocephalus. There is no suspicious osseous lesion. There is near complete opacification of the left maxillary and ethmoid sinus due to sinusitis. The orbits are unremarkable. Cervical spine: There is minimal multilevel degenerative listhesis. There is degenerative endplate remodeling with anterior spurring throughout the cervical and upper thoracic spine. There is multilevel facet arthropathy. There is associated degenerative fusion of the facet joints at multiple levels. There is no suspicious osseous lesion. There is no acute fracture. The combination of degenerative changes results in moderate right foraminal stenosis at C2-C3, moderate right and moderate to severe left foraminal stenosis at C3-C4, and moderate left foraminal stenosis at C5-C6. The lung apices are unremarkable. IMPRESSION: 1. No acute intracranial finding or evidence of acute cervical spine trauma. 2. Bilateral cerebral white matter changes, likely due to chronic small vessel disease. 3. Encephalomalacia due to chronic infarction involving the left middle cerebral artery distribution. 4. Degenerative change throughout the cervical spine, resulting in stenosis at the aforementioned levels. 5. Left paranasal sinus disease. Electronically signed by: Rekha Ortiz MD (10/16/2021 12:05 PM) [facility] DICTATED and SIGNED BY: REKHA ORTIZ MD DATE: 10/16/21 [id number] IMAGING REPORT Signed PATIENT: MEL OSORIO ACCOUNT: [id number] : 1960 LOCATION: ER AGE: 61 SEX: M EXAM STATUS: PRE ER ORD. PHYSICIAN: TOMAS CARABALLO DO REASON: fall, pain, recent fracture PROCEDURE: HUMERUS BILAT XR HUMERUS 2 VIEWS bilateral study Clinical indications: Reason: fall, pain, recent fracture / Spl. Instructions: / History: Right humerus: Nondisplaced fracture of the proximal right humeral metaphysis is seen including the region of the greater tubercle. The glenohumeral joint is normally aligned. No AC joint separation is seen. No lytic process is evident. Left humerus: No acute fracture or dislocation or lytic process is seen. No AC joint separation is seen. IMPRESSION: Acute fracture of the proximal right humerus. Electronically signed by: Alexi Gillespie MD (10/16/2021 11:47 AM) [id number] DICTATED and SIGNED BY: ALEXI GILLESPIE MD DATE: 10/16/21 [id number] 0 Course & Med Decision Making: Course & Med Decision Making Pertinent Labs and Imaging studies reviewed. (See chart for details) Patient declined pain medications acutely here in the emergency department. His fracture appears to be similar in appearance, no worsening fracture manifested. CT imaging is unremarkable for any acute intracranial hemorrhage or life- threatening pathology. There is no current indication for further invasive exams, imaging or admission at this time based on current clinical presentation. He will be [facility] back to a [facility]. I reviewed his MAR, it appears that he has scribed pain medications that he may use as needed. He has previously been referred to orthopedics for follow-up of his humerus fracture. He should also see his PCP. Return precautions provided. Dragon Disclaimer: Dragon Disclaimer: This electronic medical record was generated, in whole or in part, using a voice recognition dictation system. Departure Departure Impression: Primary Impression: Fall at intermediate Qualified Codes: W19.XXXA - Unspecified fall, initial encounter; Y92.129 - Unspecified place in intermediate as the place of occurrence of the external cause Additional Impressions: Scalp contusion Qualified Codes: S00.03XA - Contusion of scalp, initial encounter Closed fracture of right proximal humerus Qualified Codes: S42.201D - Unspecified fracture of upper end of right humerus, subsequent encounter for fracture with routine healing Disposition: [facility] Condition: STABLE Referrals: FRANCHESCA GUILLEN MD (PCP) Patient Instructions: Facial or Scalp Contusion, Fall Prevention and Home Safety, Fall Prevention in Hospitals, Humerus Fracture, Treated with Immobilization Additional Instructions: Your CAT scan today did not show any evidence of fracture or internal bleeding. Your right arm fracture appears to be similar in appearance from previous. Con tinue wearing your immobilizer. Return to the ER for any new injury or trauma, if you develop new or changed weakness, chest pain, shortness of breath, abdominal pain, vomiting, severe dizziness, severe headache or for any other concerns. Please contact your primary care doctor and outpatient orthopedics for follow-up. TOMAS CARABALLO DO Oct 16, 2021 12:37
[2021-10-16 13:00] VITALS: BP 141/68
== END 2021-10-16 14:09 ==
LOC: ER 11:16
DX: S42.201D Unspecified fracture of upper end of right humerus, subsequent encounter for fracture with routine healing (principal); S00.03XA Contusion of scalp, initial encounter; I48.91 Unspecified atrial fibrillation; E11.9 Type 2 diabetes mellitus without complications; K21.9 Gastro-esophageal reflux disease without esophagitis; E78.00 Pure hypercholesterolemia, unspecified; F03.90 Unspecified dementia, unspecified severity, without behavioral disturbance, psychotic disturbance, mood disturbance, and anxiety; I11.9 Hypertensive heart disease without heart failure; Z86.73 Personal history of transient ischemic attack (TIA), and cerebral infarction without residual deficits; Z88.0 Allergy status to penicillin; Z88.5 Allergy status to narcotic agent; Z88.7 Allergy status to serum and vaccine; W18.39XA Other fall on same level, initial encounter; Y93.89 Activity, other specified; Y92.89 Other specified places as the place of occurrence of the external cause; Y99.8 Other external cause status
CPT/HCPCS: 70450; 72125; 73060; 99284-25